=== PATIENT | female | born 1935 | race Caucasian/White ===

== ENCOUNTER → 2017-01-11 | Outpatient (CLI) | payer BC ==
[~2017-01-11] MED LIST: AMLO2.5T PO; ASPI81TA28 PO; CHOL4POW11 PO; CLR10 PEG; ENTERAL NUTRITION FORMULA PEG; HYOS1TAB PO; IMD/2 PEG; LACT12CR TOP; LACT12LO TOP; LANS30CA12 PEG; LANS30TA3 PO; LCTX PEG; LEVO100T7 PO; LEVO88TA3 PEG; LEVO88TA3 PO; METO25TA3 PO; MIRT15TA2 PO; MIRT30TA3 PO; NTRGSL/4 UT; ONDA8TAB6 SL; OXYC1TAB3 PO; PRD/1 PO; PRED-301 PEG; PRED-301 PO; PREMARIN CREAM; ROSU5TAB9 PO; TRAM-10 PEG; ULT50 PO; VNCAQN NAE; [UNRECOGNIZED DRUG - CODE]
--- NOTE | 2017-01-11 09:33 | DIAGNOSTIC IMAGING REPORT ---
ABDOMEN AND PELVIS CT WITHOUT CONTRAST CT DOSE: 331.96 mGycm HISTORY: Aneurysm repair NO CONTRAST REQUESTED PER ORDER TECHNIQUE: Multiaxial CT images of the abdomen and pelvis were performed without contrast. COMPARISON STUDY: 07/07/2016. FINDINGS: Minimal dependent bibasilar atelectatic change. Prior aneurysm repair considered stable. Kidneys demonstrate moderate atrophy and cortical thinning. Gallstones are present within the gallbladder fundus. Liver spleen are uniform. There is a fixed lateral hernia. There is moderate increase in fecal load throughout the colon. There is no evidence for fecal impaction. Patient is status post left hip pinning. IMPRESSION: 1. Stable findings of a prior aneurysm repair. 2. Cortical scarring of both kidneys with no evidence for hydronephrosis. This is unchanged. 3. Fixed lateral hernia. 4. Increased fecal load consistent throughout the colon suggesting a component of fecal stasis Electronically signed by: Walter Mortensen M.D. 01/11/2017 9:32 AM Dictated Date/Time: 01/11/2017 9:27 AM
== END | disposition home or self-care (01) ==
LOC: C.CTS 09:04
PROVIDERS: ATTEND Physician Assistant
DX: I71.3 Abdominal aortic aneurysm, ruptured (principal)

== ENCOUNTER 2017-08-09 01:10 | Inpatient (IN) | payer BC, OTHER ==
[2017-08-09] VITALS (8 sets, daily range): BP systolic 108–154; BP diastolic 66–95; PULSE 69–82; TEMP 36.5–36.8; O2SAT 95–100; Ht 162.6 cm; Wt 56.5 kg
[~2017-08-09] VITALS: Ht 162.6 cm; Wt 56.5 kg
[~2017-08-09 01:10] MED LIST changes: -ASPI81TA28 PO; -ENTERAL NUTRITION FORMULA PEG; -LANS30CA12 PEG; -LANS30TA3 PO; -LEVO88TA3 PEG; -LEVO88TA3 PO; -MIRT30TA3 PO; -PRD/1 PO; -PRED-301 PO; -ROSU5TAB9 PO; -ULT50 PO
--- NOTE | 2017-08-09 01:59 | EMERGENCY ROOM VISIT NOTE ---
History Report prepared by [place]: Jade Barragan Under the Supervision of: Moe TovarO. 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 The patient is currently wearing a Holter monitor. She has been having episodes of SOB and chest heaviness when she lies down. She is currently being evaluated for a pacemaker. She had another episode of SOB today when she was lying down. It lasted for about 5 minutes. She feels dizzy and lightheaded during these episodes. She sat up and took some deep breaths which resolved her symptoms. She received a call from her doctor who was informed by the Holter monitor that the patient had an episode of irregular heartbeat. The nurse was told that it was an advanced form of heart block. She did not have any chest pain. Source of History: patient, nursing staff Onset: HUMAN SERVICES CARE SPECIALIST Position: other (global) Quality: other (irregular heartbeat) Timing: other (episodic) Associated Symptoms: + SOB, No chest pain Note: Pt reports dizziness, lightheadedness, chest heaviness. Review of Systems See HPI for pertinent positives and negatives. A total of ten systems were reviewed and were otherwise negative. Past Medical & Surgical Medical Problems: (1) Aortic valve regurgitation (2) Chronic use of steroids (3) Chronic use of steroids (4) CKD (chronic kidney disease), stage III (5) DJD (degenerative joint disease) (6) Dyslipidemia (7) Fever (8) GERD (gastroesophageal reflux disease) (9) H/O atherosclerosis (10) H/O: GI bleed (11) History of ischemic colitis (12) History of methicillin resistant staphylococcus aureus (MRSA) (13) HTN (hypertension) (14) Hypothyroidism (15) IBS (irritable bowel syndrome) (16) Idiopathic peripheral neuropathy (17) Mitral regurgitation (18) Osteoporosis (19) Personal history of DVT (deep vein thrombosis) (20) Tachycardia Surgical Problems: (1) History of hysterectomy (2) S/P coronary artery stent placement (3) S/p SCC removal left leg (4) S/p SMA stent Family History Heart disease Social History Smoking Status: Never Smoker Alcohol Use: occasionally Drug Use: none Marital Status: Housing Status: lives with family Occupation Status: retired Current/Historical Medications Scheduled Amlodipine (Norvasc), 2.5 MG PO DAILY Aspirin (Aspirin Ec), 81 MG PO DAILY Lansoprazole (Prevacid Solutab), 30 MG PO DAILY Levothyroxine Sodium (Levothyroxine Sodium), 88 MCG PO DAILY Metoprolol Succ (Toprol Xl) (Toprol-Xl), 12.5 MG PO BID Mirtazapine (Remeron), 30 MG PO HS Prednisone (Prednisone), 1 MG PO DAILY Prednisone (Prednisone), 5 MG PO DAILY Rosuvastatin Calcium (Rosuvastatin Calcium), 5 MG PO DAILY Scheduled PRN Nitroglycerin (Nitrostat), 0.4 MG UT UD PRN for Chest Pain Tramadol HCl (Tramadol HCl), 50 MG PO TID PRN for Pain Allergies Coded Allergies: Ciprofloxacin (Verified Allergy, Intermediate, RASH, 08/09/17) Metronidazole (Verified Allergy, Intermediate, RASH, 08/09/17) mild rash / pruritis Cefuroxime (Verified Allergy, Unknown, RASH, 08/09/17) Nitrofurantoin (Verified Allergy, Unknown, UKN, 08/09/17) Bisphosphonates (Verified Adverse Reaction, Intermediate, GI UPSET, ) Liothyronine (Verified Adverse Reaction, Mild, RAPID HEART RATE, 08/09/17) Physical Exam Vital Signs Date Time Temp Pulse Resp B/P (MAP) Pulse Ox O2 Delivery O2 Flow Rate FiO2 08/09/17 03:30 71 20 146/92 97 Room Air 08/09/17 03:26 72 08/09/17 02:41 74 18 137/85 96 Room Air 08/09/17 01:34 94 Room Air 08/09/17 01:34 94 Room Air 08/09/17 01:28 79 08/09/17 01:26 93 Room Air 08/09/17 01:13 36.5 90 24 165/102 93 Room Air Physical Exam GENERAL: Awake, alert, well-appearing, in no distress HENT: Normocephalic, atraumatic. Oropharynx unremarkable. EYES: Normal conjunctiva. Sclera non-icteric. NECK: Supple. No nuchal rigidity. FROM. No JVD. RESPIRATORY: Clear to auscultation. CARDIAC: Regular rate, normal rhythm. Extremities warm and well perfused. Pulses equal. ABDOMEN: Soft, non-distended. No tenderness to palpation. No rebound or guarding. No masses. RECTAL: Deferred. MUSCULOSKELETAL: Chest examination reveals no tenderness. The back is symmetrical on inspection without obvious abnormality. There is no CVA tenderness to palpation. No joint edema. LOWER EXTREMITIES: Calves are equal size bilaterally and non-tender. No edema. No discoloration. NEURO: Normal sensorium. No sensory or motor deficits noted. SKIN: No rash or jaundice noted. Medical Decision & Procedures ER Provider Diagnostic Interpretation: X-ray: Per my interpretation, radiologist review. Chest X-ray: Negative infiltrate. No pneumothorax. Laboratory Results 08/09/17 01:55 Red Blood Count 4.90, Mean Corpuscular Volume 95.1, Mean Corpuscular Hemoglobin 30.8, Mean Corpuscular Hemoglobin Concent 32.4, Mean Platelet Volume 10.7, Neutrophils (%) (Auto) 74.9, Lymphocytes (%) (Auto) 13.3, Monocytes (%) (Auto) 8.7, Eosinophils (%) (Auto) 2.3, Basophils (%) (Auto) 0.5, Neutrophils # (Auto) 4.83, Lymphocytes # (Auto) 0.86, Monocytes # (Auto) 0.56, Eosinophils # (Auto) 0.15, Basophils # (Auto) 0.03 08/09/17 01:55 08/09/17 02:45 Test 08/09/17 01:55 08/09/17 02:45 White Blood Count 6.45 K/uL (4.8-10.8) Red Blood Count 4.90 M/uL (4.2-5.4) Hemoglobin 15.1 g/dL (12.0-16.0) Hematocrit 46.6 % (37-47) Mean Corpuscular Volume 95.1 fL (80-100) Mean Corpuscular Hemoglobin 30.8 pg (25-34) Mean Corpuscular Hemoglobin Concent 32.4 g/dl (32-36) Platelet Count 164 K/uL (130-400) Mean Platelet Volume 10.7 fL (7.4-10.4) Neutrophils (%) (Auto) 74.9 % Lymphocytes (%) (Auto) 13.3 % Monocytes (%) (Auto) 8.7 % Eosinophils (%) (Auto) 2.3 % Basophils (%) (Auto) 0.5 % Neutrophils # (Auto) 4.83 K/uL (1.4-6.5) Lymphocytes # (Auto) 0.86 K/uL (1.2-3.4) Monocytes # (Auto) 0.56 K/uL (0.11-0.59) Eosinophils # (Auto) 0.15 K/uL (0-0.5) Basophils # (Auto) 0.03 K/uL (0-0.2) RDW Standard Deviation 49.1 fL (36.4-46.3) RDW Coefficient of Variation 14.2 % (11.5-14.5) Immature Granulocyte % (Auto) 0.3 % Immature Granulocyte # (Auto) 0.02 K/uL (0.00-0.02) Anion Gap 2.0 mmol/L (3-11) Est Creatinine Clear Calc Drug Dose 19.3 ml/min Estimated GFR () 26.5 Estimated GFR (Non- 22.9 BUN/Creatinine Ratio 17.1 (10-20) Calcium Level 8.7 mg/dl (8.5-10.1) Total Bilirubin 0.4 mg/dl (0.2-1) Alanine Aminotransferase (ALT/SGPT) 36 U/L (12-78) Alkaline Phosphatase 120 U/L (45-117) Total Protein 7.6 gm/dl (6.4-8.2) Albumin 3.5 gm/dl (3.4-5.0) Magnesium Level 2.5 mg/dl (1.8-2.4) Direct Bilirubin 0.1 mg/dl (0-0.2) Aspartate Amino Transf (AST/SGOT) 16 U/L (15-37) Troponin I < 0.015 ng/ml (0-0.045) Laboratory results reviewed by me ECG Indication: palpitations Rate (beats per minute): 70 Rhythm: sinus rhythm Findings: LBBB, no acute ischemic change, left axis deviation Comparison ECG Date: 01-Jan-2016 Change: LBBB is present in old. ED Course 0125: The patient was evaluated in room A10. A complete history and physical exam was performed. 0326: I discussed the patient's case with Dr. Mosley [facility]. The patient will be evaluated for further treatment and disposition. 0330: Upon reexamination, the patient was stable. I discussed the test results and treatment plan with her. The patient will be evaluated for further management. Medical Decision Differential diagnoses include but are not limited to; cardiac dysrhythmia, ventricular tachycardia, complete heart block, metabolic derangement. Patient's rhythm strips from the Holter monitor showed a complete heart block. Patient remained stable condition throughout emergency department evaluation. Case was discussed with the [facility] for admission for further evaluation from the patient's acute care physical therapist Medication Reconcilliation Current Medication List: was personally reviewed by me Blood Pressure Screening Patient's blood pressure: Elevated blood pressure Blood pressure disposition: Elevated BP felt to be situational Consults Time Called: [phone] Consulting Physician: Dr. Mosley [facility] Returned Call: [phone] Discussed the patient's case. The patient will be evaluated for further treatment and disposition. Impression Primary Impression: Cardiac dysrhythmia Scribe Attestation The scribe's documentation has been prepared under my direction and personally reviewed by me in its entirety. I confirm that the note above accurately reflects all work, treatment, procedures, and medical decision making performed by me. Departure Information Dispostion Being Evaluated By Hospitalist Referrals Vandana Krishna M.D. (PCP) Patient Instructions My [facility]
[2017-08-09 02:05] LABS: BASO % 0.5 %; BASO ABS # 0.03 K/uL (0-0.2); COMPLETE YES; EOS % 2.3 %; HEMATOCRIT 46.6 % (37-47); IG% 0.3 %; LYMPH % 13.3 %; LYMPH ABS # 0.86 K/uL (1.2-3.4); MEAN CELL VOLUME 95.1 fL (80-100); MEAN CORPUSCULAR HEMOGLOBIN 30.8 pg (25-34); MEAN CORPUSCULAR HGB CONC 32.4 g/dl (32-36); MEAN PLATELET VOLUME 10.7 fL (7.4-10.4); MONO % 8.7 %; NEUT % 74.9 %; PLATELET COUNT 164 K/uL (130-400); WHITE BLOOD COUNT 6.45 K/uL (4.8-10.8)
[2017-08-09 02:28] LABS: ALKALINE PHOSPHATASE 120 U/L (45-117); ALT/SGPT 36 U/L (12-78); BLOOD UREA NITROGEN 34 mg/dl (7-18); BUN/CREATININE RATIO 17.1 (10-20); CALCIUM 8.7 mg/dl (8.5-10.1); CARBON DIOXIDE 30 mmol/L (21-32); CHLORIDE 107 mmol/L (98-107); CREATININE 2.01 mg/dl (0.60-1.20); GLUCOSE 72 mg/dl (70-99); SODIUM 139 mmol/L (136-145)
[2017-08-09] MEDS ORDERED: LANS30TA3 PO (02:44)
[2017-08-09] MEDS ORDERED: ASPI81TA28 PO (02:44)
[2017-08-09] MEDS ORDERED: PRED-301 PO (02:44)
[2017-08-09] MEDS ORDERED: MIRT30TA3 PO (02:44)
[2017-08-09] MEDS ORDERED: ULT50 PO (02:44)
[2017-08-09] MEDS ORDERED: PRD/1 PO (02:44)
[2017-08-09] MEDS ORDERED: ROSU5TAB9 PO (02:44)
[2017-08-09] MEDS ORDERED: LEVO88TA3 PO (02:44)
[2017-08-09 03:07] LABS: POTASSIUM 4.2 mmol/L (3.5-5.1)
[2017-08-09 03:17] LABS: AST/SGOT 16 U/L (15-37); MAGNESIUM 2.5 mg/dl (1.8-2.4)
[2017-08-09] MEDS ORDERED: TRAMADOL HCL 50 MG TAB PO PRN ×2 (04:30→13:30)
[2017-08-09] MEDS ORDERED: ACETAMINOPHEN 325 MG TAB PO PRN ×2 (04:30→13:30)
[2017-08-09] MEDS ORDERED: NITROGLYCERIN 0.4 MG SL PER TAB CHARGE SL PRN (04:30)
[2017-08-09] MEDS ORDERED: D5W AND NSS 1,000 ML IV SCH (04:30)
[2017-08-09] MEDS ORDERED: PROCHLORPERAZINE INJ 5 MG in SYRINGE 4 ML IV PRN (04:30)
[2017-08-09] MEDS ORDERED: LORAZEPAM 0.5 MG TAB PO ONE (05:00)
--- NOTE | 2017-08-09 06:35 | HISTORY & PHYSICAL EXAMINATION ---
DATE OF ADMISSION: 08/09/2017 PRIMARY CARE PHYSICIAN: Vandana Krishna MD. CHIEF COMPLAINT: "Doctor told us to come, Holter went off." HISTORY OF PRESENT ILLNESS: History obtained from patient, , and records. Medical history significant for CAD status post stenting, AAA rupture status post surgery, aortic stenosis, hypertension, chronic left bundle branch block fibromyalgia as per records, chronic renal insufficiency (baseline creatinine at 2), History dermatomyositis on chronic steroid Rx, history of MRSA, hypothyroidism, history of PE/DVT status post IVC filter placement Recent confinement last December 2015 for her bilateral new DVTs. Patient deemed to be a poor candidate for anticoagulation due to history of retroperitoneal bleed. In the last few months, the patient would have lightheadedness symptoms, wooziness some shortness of breath, no chest pain, comes and goes few times a week. Seen at PCP's office, consideration for arrhythmia. Outpatient [facility] later replaced w/ Holter cardiac event monitoring due to patient having issues with the former automation technologist. Tis morning, the patient laid down on a couch, she noted recurrence off sensation of wooziness, lightheadedness, shortness of breath lasting for minutes. She pressed event monitor button. She later received a call from PCP's office notifying her of an advanced heart block that have been picked up by her monitor. Patient current to comfortable. MEDICAL HISTORY: As above. A 2D echo from June 2017 showed concentric LVH, EF 55%, moderate calcific aortic valve stenosis, trace aortic valve regurgitation, mildly enlarged proximal ascending thoracic aorta. SURGERIES: She has had hysterectomy, hip surgery, squamous cell carcinoma of left leg, vascular procedures, AAA repair. HOME MEDICATIONS: Include levothyroxine, simvastatin, lansoprazole, amlodipine, metoprolol, prednisone, loperamide, cholestyramine, Zofran, lactobacillus, Beconase, loratadine, tramadol, oxycodone, furosemide, aspirin. ALLERGIES: BISPHOSPHONATES, CEFTIN, NITROFURANTOIN. FAMILY HISTORY: There is a family history of hypertension, skin cancer. PERSONAL SOCIAL HISTORY: Nonsmoker, no chronic intake of alcohol. Retired clerk secretary. REVIEW OF SYSTEMS: As per HPI, all 10 systems reviewed. All other ROS negative. PHYSICAL EXAMINATION: VITAL SIGNS: Blood pressure was noted to be 137/85, pulse rate of 64, RR 18, temperature 36.5, sats 96 on room air. GENERAL: Slightly anxious, distressed. SKIN: Normal color, warm. HEENT: Marvell palpebral conjunctivae. No ptosis. Dry buccal mucosa. NECK: Supple, nontender. CHEST: Clear to auscultation. No tenderness. HEART: Regular rate and rhythm, systolic murmur. ABDOMEN: Some distension, nontender. EXTREMITIES: No LE edema, no tenderness. No gross deformities. NEUROLOGIC: Coherent. No gross focality. LABORATORY DATA: Hemoglobin 15.1, hematocrit 46.6, white cell count 10, platelets 164, Sodium 135, potassium 4.2, chloride 107, CO2 30, BUN 34, creatinine 2, glucose was noted to be 72. Chest x-ray as per my interpretation atelectasis, prominent aortic knob. EKG as per my interpretation, rate 70, normal sinus rhythm, left axis deviation, chronic left bundle branch block, PRWP. ASSESSMENT 1. Symptomatic bradycardia secondary to intermittent complete heart block 2. Hypertension, stable. 3. AAA rupture sp repair 4. Pulmonary thromboembolism sp IVC filter placement. Not a candidate candidate for anti-condition secondary to past history of retroperitoneal bleed. 5. Coronary artery disease status post stenting. 6. Chronic renal failure, creatinine at baseline. 7. hx of aortic stenosis as per records 8. 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 Patient will likely require PPM Appropriate to hold home beta danyel for now until patient seen by Cardiology. DVT prophylaxis, Heparin subQ. Full code. MTDD
[2017-08-09 06:55] LABS: PARTIAL THROMBOPLASTIN RATIO 0.9
--- NOTE | 2017-08-09 07:18 | DIAGNOSTIC IMAGING REPORT ---
SINGLE VIEW CHEST CLINICAL HISTORY: Atypical chest pain. FINDINGS: An AP, portable, upright chest radiograph is compared to study dated 01/01/2016. The examination is degraded by portable technique and patient rotation. The cardiomediastinal silhouette is normal for projection. There is a large hiatal hernia. Left basilar atelectasis is noted. There is no airspace consolidation typical for pneumonia or large pleural effusion. No pneumothorax is seen. The skeletal structures are osteopenic. Degenerative change and scoliosis are noted in the thoracic spine. IMPRESSION: 1. No acute cardiopulmonary abnormality. 2. Large hiatal hernia. Electronically signed by: Gustavo Hale M.D. 08/09/2017 7:16 AM Dictated Date/Time: 08/09/2017 7:16 AM
[2017-08-09] MEDS: ASPIRIN 81 MG ECTAB PO SCH (08:23)
[2017-08-09] MEDS: ROSUVASTATIN CALCIUM 5 MG TAB PO SCH (08:23)
[2017-08-09] MEDS: LANSOPRAZOLE SOLUTAB 30 MG PO SCH (08:24)
[2017-08-09] MEDS: AMLODIPINE BESYLATE 5 MG TAB PO SCH (08:24)
--- NOTE | 2017-08-09 10:23 | Progress Note ---
Progress Note Date of Service Aug 09, 2017. Progress Note full ep consult dictated. Pt with intermittent complete heart block for dual chamber pacemaker today.
[2017-08-09] MEDS ORDERED: BACITRACIN 50000 UNIT VIAL ONE (11:50)
[2017-08-09] MEDS ORDERED: LIDOCAINE HCL 1% 20 ML VIAL ONE (11:50)
[2017-08-09] MEDS ORDERED: BUPIVACAINE 0.5 % 5 MG/1 ML MPF 30ML VIAL ONE (11:50)
[2017-08-09] MEDS ORDERED: CEFAZOLIN SOD 1 GM VIAL ONE (12:04)
--- NOTE | 2017-08-09 12:38 | CARDIOLOGY CONSULTATION ---
DATE OF CONSULTATION: 08/09/2017 REFERRING PHYSICIAN: Garrison Marie DO REASON FOR CONSULTATION: Intermittent complete heart block. HISTORY OF PRESENT ILLNESS: This is an 82-year-old female, who had been in a normal state of health up until a little over a month ago where she was starting to have a lot of dyspnea on exertion, shortness of breath, generalized fatigue as well as some lightheadedness and dizziness intermittently with near syncope, but no overt syncope. She recently had seen Dr. Pinto in our office on July 14 and a CardioNet was ordered. She had just gotten the CardioNet yesterday. She was awake and was watching the football game when she developed symptoms and CardioNet contacted the physician industrial relations analyst and it correlated with complete heart block and the patient was contacted and told to come to the Emergency Room. Overnight, she has had sinus rhythm with her baseline left bundle-branch block. PAST MEDICAL HISTORY: Coronary artery disease, history of 2 bare metal stents to the RCA in July 2014, left bundle-branch block, newly found in July 2017, chronic kidney disease stage III to IV, moderate aortic stenosis, emergency repair of a ruptured abdominal aortic aneurysm in October 2015 with a prolonged hospital stay, DVT and pulmonary embolism with status post IVC filter as she was not an anticoagulation candidate due to retroperitoneal bleed, hyperlipidemia, hypertension, hypothyroidism. PAST SURGICAL HISTORY: Cardiac catheterization, emergency repair of a ruptured abdominal aortic aneurysm, hysterectomy, hip surgery, squamous cell carcinoma of the left leg. ALLERGIES: BISPHOSPHONATES, CEFTIN, AND NITROFURANTOIN. HOME MEDICATIONS: Include oxycodone, aspirin, tramadol, prednisone, Synthroid, mirtazapine, Crestor, Prevacid, Norvasc, Lopressor 12.5 twice a day, Premarin, Zofran, lactobacillus. REVIEW OF SYSTEMS: All other 10-point review of systems is reviewed and essentially negative at this time. FAMILY HISTORY: Significant for hypertension and skin cancer. SOCIAL HISTORY: She is a nonsmoker. No alcohol. Retired assistant corporate secretary. PHYSICAL EXAMINATION: VITAL SIGNS: Temperature 36.5, heart rate 77, blood pressure 144/76, respirations 22, oxygen saturation 98%. GENERAL: She is awake, alert and oriented x3, in no acute distress, sitting up in the bed comfortably. HEENT: Normocephalic, atraumatic. Extraocular motion intact. Sclerae is nonicteric. Mucous membranes moist. NECK: Thin and supple. No JVD. CARDIOVASCULAR: Normal S1, S2, regular rate and rhythm. Positive systolic murmur 3/6. No palpable heave or thrill. PULMONARY: Clear to auscultation bilaterally. No wheezes, rales or rhonchi. ABDOMEN: Soft, benign. EXTREMITIES: No clubbing or cyanosis of fingers. No edema of the bilateral lower extremities. Peripheral pulses intact. NEUROLOGIC: Grossly intact. SKIN: Grossly intact. PERTINENT TESTING: A 12-lead ECG on admission is sinus rhythm with left bundle-branch block. HEMATOLOGY: WBC 6.45, hemoglobin 15, hematocrit 46.6, platelets 164. CHEMISTRY: Sodium 139, chloride 107, carbon dioxide 30, BUN 34, creatinine 2, glucose 72, calcium 8.7, total bilirubin 0.4, alkaline phosphatase 120, ALT 36. Total protein 7.6, albumin 3.5, potassium 4.2, magnesium 2.5, direct bilirubin 0.1, AST 16. TSH is low at 0.6 with a free T4 of 1 and total T3 of 6.65. Chest x-ray is negative. Echocardiogram done in our office in June 2017, preserved ejection fraction of 55%-59%, moderately calcified aortic valve with moderate aortic valve stenosis, trace AI, normal aortic root and proximal ascending thoracic aorta is mildly enlarged, but stable. CardioNet showed intermittent complete heart block at the time when patient was symptomatic at 11:30 at night. IMPRESSION: 1. Intermittent complete heart block. 2. Moderate aortic stenosis. 3. Coronary artery disease, history of bare metal stent to the right coronary artery in 2013 x2. 4. Hypertension. 5. Hyperlipidemia. 6. Left bundle-branch block. 7. History of abdominal aortic aneurysm rupture with status post repair in October 2015. 8. Deep venous thrombosis and pulmonary embolism post-procedure, status post inferior vena cava filter, not an anticoagulation candidate due to bleeding. 9. Chronic kidney disease stage III to IV. PLAN: Recommend permanent pacemaker dual chamber. Discussed the procedure with the patient as well as the potential risks which include but not limited to sudden cardiac , cardiac arrhythmias, cerebrovascular accident, myocardial infarction, injury to the blood vessels, chamber of the heart and lungs, bleeding and infection. The patient understood these risks and agreed to the procedure as planned. Informed consent was obtained. We will try to do the procedure today in her left arm, n.p.o. for now, antibiotics preop.
--- NOTE | 2017-08-09 12:45 | Progress Note ---
Medicine Progress Note Date & Time of Visit: Aug 09, 2017 at 12:40. Subjective Patient seen earlier this AM, denies any additional symptoms involving SOB, or lightheadedness. Denies any CP or palpitations. No new complaints noted. No overnight events noted. NPO for possible pacemaker placement this afternoon. Objective Last 8 Hrs Date Time Temp Pulse Resp B/P (MAP) Pulse Ox O2 Delivery O2 Flow Rate FiO2 08/09/17 11:49 36.8 69 18 138/73 (94) 96 08/09/17 08:00 Room Air 08/09/17 07:45 36.5 77 22 144/76 (98) 98 08/09/17 05:00 36.7 71 20 154/88 100 Room Air Physical Exam: GENERAL: Patient is in no acute distress. HEENT: No acute trauma, normocephalic, mucous membranes moist, conjunctivae clear, no scleral icterus. NECK: No stridor, trachea is midline. LUNGS: Clear to auscultation bilaterally, no wheeze, no rhonchi, breath sounds equal. HEART: Without murmurs gallops or rubs, regular rate and rhythm. ABDOMEN: Soft, nontender, bowel sounds positive, no hepatosplenomegaly EXTREMITIES: No cyanosis or edema, full range of motion of all the joints without pain or difficulty, no signs for acute trauma. NEUROLOGIC: Oriented x 3, no acute motor or sensory deficits, no focal weakness. SKIN: No rash, no jaundice, no diaphoresis. Laboratory Results: Last 24 Hours Test 08/09/17 01:55 08/09/17 02:45 08/09/17 05:40 White Blood Count 6.45 K/uL Red Blood Count 4.90 M/uL Hemoglobin 15.1 g/dL Hematocrit 46.6 % Mean Corpuscular Volume 95.1 fL Mean Corpuscular Hemoglobin 30.8 pg Mean Corpuscular Hemoglobin Concent 32.4 g/dl Platelet Count 164 K/uL Mean Platelet Volume 10.7 fL Neutrophils (%) (Auto) 74.9 % Lymphocytes (%) (Auto) 13.3 % Monocytes (%) (Auto) 8.7 % Eosinophils (%) (Auto) 2.3 % Basophils (%) (Auto) 0.5 % Neutrophils # (Auto) 4.83 K/uL Lymphocytes # (Auto) 0.86 K/uL Monocytes # (Auto) 0.56 K/uL Eosinophils # (Auto) 0.15 K/uL Basophils # (Auto) 0.03 K/uL RDW Standard Deviation 49.1 fL RDW Coefficient of Variation 14.2 % Immature Granulocyte % (Auto) 0.3 % Immature Granulocyte # (Auto) 0.02 K/uL Sodium Level 139 mmol/L Potassium Level mmol/L 4.2 mmol/L Chloride Level 107 mmol/L Carbon Dioxide Level 30 mmol/L Anion Gap 2.0 mmol/L Blood Urea Nitrogen 34 mg/dl Creatinine 2.01 mg/dl Est Creatinine Clear Calc Drug Dose 19.3 ml/min Estimated GFR () 26.5 Estimated GFR (Non- 22.9 BUN/Creatinine Ratio 17.1 Random Glucose 72 mg/dl Calcium Level 8.7 mg/dl Magnesium Level mg/dl 2.5 mg/dl Total Bilirubin 0.4 mg/dl Direct Bilirubin mg/dl 0.1 mg/dl Aspartate Amino Transf (AST/SGOT) U/L 16 U/L Alanine Aminotransferase (ALT/SGPT) 36 U/L Alkaline Phosphatase 120 U/L Total Protein 7.6 gm/dl Albumin 3.5 gm/dl Troponin I < 0.015 ng/ml Thyroid Stimulating Hormone (TSH) 0.060 uIu/ml Prothrombin Time 10.0 SECONDS Prothromb Time International Ratio 1.0 Activated Partial Thromboplast Time 23.6 SECONDS Partial Thromboplastin Ratio 0.9 Free Thyroxine 1.00 ng/dl Total Triiodothyronine 0.65 ng/ml Assessment & Plan Please see H&P from this AM for more details. SYMPTOMATIC INTERMITTENT COMPLETE HEART BLOCK -bradycardia secondary to intermittent complete heart block -held av blocking meds; BB stopped -monitor in tele -pacer pads on patient -EP Cardiology consulted, appreciate recs, planning to take patient for PM placement today HTN: -currently stable -monitor -continue amlodipine Hx of MULTIPLE VTE EVENTS: -multiple DVTs, and PE, s/p IVC filter placement -not a candidate for anticoagulation secondary to history of retroperitoneal bleed CAD: -with prior hx of stent -continued on ASA, statin -BB held due to above PRIOR Hx OF AAA: -per history patient had AAA rupture s/p repair -no related symptoms presently CKD STAGE: -creatinine at baseline -avoid nephrotoxins Hx of AORTIC STENOSIS: per records -TTE: from June 2017 showed EF 55%, concentric LVH, moderate calcific aortic valve stenosis, trace aortic valve regurgitation, mildly enlarged proximal ascending thoracic aorta. 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 Current Inpatient Medications: Current Inpatient Medications Medications (Trade) Dose Ordered Sig/Edmond Route Start Time Stop Time Status Last Admin Dose Admin Heparin Sodium (Porcine) (Heparin Sq 5000 Unit/0.5ml) 5,000 unit Q8 SQ 08/09/17 14:00 09/08/17 13:59 Acetaminophen (Tylenol Tab) 650 mg Q4H PRN PO 08/09/17 04:30 09/08/17 04:29 Nitroglycerin (Nitrostat Tab) 0.4 mg UD PRN SL 08/09/17 04:30 09/08/17 04:29 Dextrose/Sodium Chloride 1,000 ml @ 40 mls/hr Q24H IV 08/09/17 04:30 09/08/17 04:29 08/09/17 05:12 40 MLS/HR Prochlorperazine Edisylate 5 mg/ Syringe 5 ml @ 5 mls/min Q6H PRN IV 08/09/17 04:30 09/08/17 04:29 Tramadol HCl (Ultram Tab) 25 mg Q6H PRN PO 08/09/17 04:30 09/08/17 04:29 Hydromorphone HCl (Dilaudid Inj) 0.5 mg Q4H PRN IV 08/09/17 04:30 08/23/17 04:29 Amlodipine Besylate (Norvasc Tab) 2.5 mg DAILY PO 08/09/17 09:00 09/08/17 08:59 08/09/17 08:24 2.5 MG Aspirin (Ecotrin Tab) 81 mg DAILY PO 08/09/17 09:00 09/08/17 08:59 08/09/17 08:23 81 MG Lansoprazole (Prevacid Solutab) 30 mg DAILY PO 08/09/17 09:00 09/08/17 08:59 08/09/17 08:24 30 MG Mirtazapine (Remeron Tab) 30 mg HS PO 08/09/17 21:00 09/08/17 20:59 Prednisone (PredniSONE TAB) 6 mg DAILY PO 08/09/17 09:00 09/08/17 08:59 08/09/17 08:25 6 MG Rosuvastatin Calcium (Crestor Tab) 5 mg DAILY PO 08/09/17 09:00 09/08/17 08:59 08/09/17 08:23 5 MG
[2017-08-09] MEDS ORDERED: FENTANYL CITRATE INJ 50 MCG/1 ML 2 ML VIAL ONE (12:54)
[2017-08-09] MEDS ORDERED: MIDAZOLAM HCL 5 MG/ML 1 ML VIAL ONE (12:54)
[2017-08-09] MEDS ORDERED: NURSING VERBAL MED ORDER ONE (13:00)
[2017-08-09] MEDS ORDERED: NITROGLYCERIN 0.4 MG SL PER TAB CHARGE UT PRN (13:30)
[2017-08-09] MEDS: HEPARIN SOD 5000 UNIT/0.5 ML CARP SQ SCH ×2 (14:41→19:56)
[2017-08-09] MEDS: HYDROmorphone INJ 0.5 MG/0.5 ML SYR IV PRN ×2 (17:45→21:53)
[2017-08-09] MEDS: ACETAMINOPHEN/CODEINE 300/30MG TAB PO PRN (19:54)
[2017-08-09] MEDS: METOPROLOL SUCC 25MG EXT REL TAB PO SCH (19:54)
[2017-08-09] MEDS ORDERED: MIRTAZAPINE TAB 15 MG TAB PO SCH (21:00)
[2017-08-10] MEDS ORDERED: NURSING DECISION MEDICATION ORDER SCH (00:30)
[2017-08-10 00:33] VITALS: BP 143/84; PULSE 82; TEMP 36.9; O2SAT 96
[2017-08-10] MEDS: ACETAMINOPHEN/CODEINE 300/30MG TAB PO PRN (00:38)
[2017-08-10 03:07] VITALS: BP 122/82; PULSE 75; TEMP 36.7; O2SAT 96
[2017-08-10] MEDS: HEPARIN SOD 5000 UNIT/0.5 ML CARP SQ SCH (05:56)
[2017-08-10] MEDS ORDERED: LEVOTHYROXINE 88 MCG TAB PO SCH (06:00)
[2017-08-10 06:07] LABS: BASO % 0.2 %; BASO ABS # 0.01 K/uL (0-0.2); COMPLETE YES; EOS % 3.7 %; HEMATOCRIT 46.1 % (37-47); IG% 0.3 %; LYMPH % 5.9 %; LYMPH ABS # 0.36 K/uL (1.2-3.4); MEAN CORPUSCULAR HGB CONC 31.2 g/dl (32-36); MEAN PLATELET VOLUME 10.8 fL (7.4-10.4); MONO % 6.2 %; NEUT % 83.7 %; PLATELET COUNT 121 K/uL (130-400); WHITE BLOOD COUNT 6.14 K/uL (4.8-10.8)
[2017-08-10 06:24] LABS: BUN/CREATININE RATIO 17.6 (10-20); CREATININE 1.72 mg/dl (0.60-1.20); POTASSIUM 4.2 mmol/L (3.5-5.1)
[2017-08-10 06:25] LABS: CALCIUM 8.3 mg/dl (8.5-10.1)
--- NOTE | 2017-08-10 07:19 | DIAGNOSTIC IMAGING REPORT ---
CHEST 2 VIEWS ROUTINE CLINICAL HISTORY: Pacemaker placement COMPARISON STUDY: 08/09/2017 FINDINGS: There is been interval placement of a dual-chamber left subclavian central venous pacemaker. There is no pneumothorax. The electrode position is unremarkable. The heart is borderline enlarged with aortic tortuosity/ectasia. There is a retrocardiac opacity consistent with a hiatal hernia. There is no focal pulmonary consolidation. There is minimal blunting of the left lateral costophrenic angle.[ IMPRESSION: No evidence of pneumothorax status post left subclavian dual-chamber central venous pacemaker placement Electronically signed by: Toby Aguilar M.D. 08/10/2017 7:18 AM Dictated Date/Time: 08/10/2017 7:17 AM
[2017-08-10 08:06] VITALS: BP 120/66; PULSE 68; TEMP 36.8; O2SAT 96
[2017-08-10] MEDS: METOPROLOL SUCC 25MG EXT REL TAB PO SCH (08:22)
[2017-08-10] MEDS: ROSUVASTATIN CALCIUM 5 MG TAB PO SCH (08:23)
[2017-08-10] MEDS: LANSOPRAZOLE SOLUTAB 30 MG PO SCH (08:23)
[2017-08-10] MEDS: AMLODIPINE BESYLATE 5 MG TAB PO SCH (08:24)
[2017-08-10] MEDS: ASPIRIN 81 MG ECTAB PO SCH (08:24)
--- NOTE | 2017-08-10 08:47 | Cardiology Follow-Up ---
Subjective Subjective Date of Service: Aug 10, 2017. Pt evaluation today including: conversation w/ patient, physical exam, lab review Pain: minimal discomfort Problem List Medical Problems: (1) Abdominal aortic aneurysm, ruptured Status: Acute (2) Cardiac dysrhythmia Status: Acute (3) Dehydration Status: Acute (4) Feeding tube dysfunction Status: Acute Review of Systems Constitutional: No fatigue Respiratory: No shortness of breath, No dyspnea on exertion Cardiac: No chest pain, No edema, No palpitations Abdomen: No nausea, No diarrhea Endo: No fatigue Objective Vital Signs Last Vital Signs Documentation Date Time Temp Pulse Resp B/P (MAP) Pulse Ox O2 Delivery O2 Flow Rate FiO2 08/10/17 08:06 36.8 68 16 120/66 (84) 96 08/10/17 04:02 Room Air Physical Exam: General Appearance: WD/WN, no apparent distress, + thin Eyes: bilateral eyes PERRL, bilateral eyes EOMI Respiratory/Chest: lungs clear, normal breath sounds Cardiovascular: regular rate, rhythm, no edema, + systolic murmur Abdomen: normal bowel sounds, soft Extremities: + pertinent finding Neurologic/Psychiatric: alert, oriented x 3, + depressed affect, + pertinent finding Skin: normal color, warm/dry (left pectoral region no hematoma and mild ecchymosis) Assessment and Plan Impression: 1. Intermittent CHB s/p dual chamber ppm 08/09/2107 2. Moderate 3. CAD s/p PCI to RCA in past 4. HTN 5. HLD Plan: Ok for discharge home today do not lift the left elbow over the left shoulder for 1 month do not lift more than 10 pounds with the left arm for 2 weeks f/u in our [facility] office for device and wound check next week Discharge planning: home Medications: Medications Administered Medications (Trade) Dose Ordered Sig/Edmond Route Start Time Stop Time Status Last Admin Dose Admin Heparin Sodium (Porcine) (Heparin Sq 5000 Unit/0.5ml) 5,000 unit Q8 SQ 08/09/17 14:00 09/08/17 13:59 08/10/17 05:56 5,000 UNIT Dextrose/Sodium Chloride 1,000 ml @ 40 mls/hr Q24H IV 08/09/17 04:30 08/10/17 00:30 DC 08/09/17 05:12 40 MLS/HR Hydromorphone HCl (Dilaudid Inj) 0.5 mg Q4H PRN IV 08/09/17 04:30 08/23/17 04:29 08/09/17 21:53 0.5 MG Amlodipine Besylate (Norvasc Tab) 2.5 mg DAILY PO 08/09/17 09:00 09/08/17 08:59 08/10/17 08:24 2.5 MG Aspirin (Ecotrin Tab) 81 mg DAILY PO 08/09/17 09:00 09/08/17 08:59 08/10/17 08:24 81 MG Lansoprazole (Prevacid Solutab) 30 mg DAILY PO 08/09/17 09:00 09/08/17 08:59 08/10/17 08:23 30 MG Mirtazapine (Remeron Tab) 30 mg HS PO 08/09/17 21:00 09/08/17 20:59 08/09/17 19:55 30 MG Prednisone (PredniSONE TAB) 6 mg DAILY PO 08/09/17 09:00 09/08/17 08:59 08/10/17 08:23 6 MG Rosuvastatin Calcium (Crestor Tab) 5 mg DAILY PO 08/09/17 09:00 09/08/17 08:59 08/10/17 08:23 5 MG Lorazepam (Ativan Tab) 0.25 mg ONE ONCE PO 08/09/17 05:00 08/09/17 05:10 DC 08/09/17 05:15 0.25 MG Cefazolin Sodium (Ancef Inj) 1,000 mg STK-MED ONCE .ROUTE 08/09/17 12:04 08/09/17 12:05 DC 08/09/17 12:04 1,000 MG Midazolam HCl (Versed Inj) 5 mg STK-MED ONCE .ROUTE 08/09/17 12:54 08/09/17 12:55 DC 08/09/17 12:54 2 MG Acetaminophen/ Codeine Phosphate (Tylenol w/ Codeine #3 Tab) 1 tab for pain scale 4-6 2 t... Q4H PRN PO 08/09/17 13:30 09/08/17 13:29 08/10/17 00:38 2 TAB Levothyroxine Sodium (Synthroid Tab) 88 mcg DAILYBB PO 08/10/17 06:00 09/09/17 05:59 08/10/17 05:55 88 MCG Metoprolol Succinate (Toprol Xl Tab) 12.5 mg BID PO 08/09/17 21:00 09/08/17 20:59 08/10/17 08:22 12.5 MG Tramadol HCl (Ultram Tab) 50 mg TID PRN PO 08/09/17 13:30 09/08/17 13:29 08/09/17 23:13 50 MG Diphenhydramine HCl (Benadryl Cap) 25 mg HS PRN PO 08/09/17 18:15 09/08/17 18:14 08/10/17 00:37 25 MG Lab Results: Telemetry: ASVS ECG: SR CXR: No PTX, RA and RV leads in position PPM Interrogation Today: Stable lead testing from implant yesterday Last 24 Hours Test 08/10/17 05:16 White Blood Count 6.14 K/uL Red Blood Count 4.80 M/uL Hemoglobin 14.4 g/dL Hematocrit 46.1 % Mean Corpuscular Volume 96.0 fL Mean Corpuscular Hemoglobin 30.0 pg Mean Corpuscular Hemoglobin Concent 31.2 g/dl Platelet Count 121 K/uL Mean Platelet Volume 10.8 fL Neutrophils (%) (Auto) 83.7 % Lymphocytes (%) (Auto) 5.9 % Monocytes (%) (Auto) 6.2 % Eosinophils (%) (Auto) 3.7 % Basophils (%) (Auto) 0.2 % Neutrophils # (Auto) 5.14 K/uL Lymphocytes # (Auto) 0.36 K/uL Monocytes # (Auto) 0.38 K/uL Eosinophils # (Auto) 0.23 K/uL Basophils # (Auto) 0.01 K/uL RDW Standard Deviation 50.4 fL RDW Coefficient of Variation 14.3 % Immature Granulocyte % (Auto) 0.3 % Immature Granulocyte # (Auto) 0.02 K/uL Sodium Level 141 mmol/L Potassium Level 4.2 mmol/L Chloride Level 107 mmol/L Carbon Dioxide Level 29 mmol/L Anion Gap 5.0 mmol/L Blood Urea Nitrogen 30 mg/dl Creatinine 1.72 mg/dl Est Creatinine Clear Calc Drug Dose 22.5 ml/min Estimated GFR () 32.0 Estimated GFR (Non- 27.6 BUN/Creatinine Ratio 17.6 Random Glucose 98 mg/dl Calcium Level 8.3 mg/dl
--- NOTE | 2017-08-10 11:06 | Discharge Instructions ---
Discharge Instructions Date of Service Aug 10, 2017. Admission Reason for Admission: Complete Heart Block Discharge Discharge Diagnosis / Problem: Complete heart block Discharge Goals Goal(s): Therapeutic intervention Activity Recommendations Activity Limitations: per Instructions/Follow-up section *Do not lift the left elbow over the left shoulder for 1 month *Do not lift more than 10 pounds with the left arm for 2 weeks *Follow up in [facility] Cardiology office for device and wound check next week Instructions / Follow-Up Instructions / Follow-Up Please follow up with Dr. Kothari/Cardiology office at [facility] next week Please see Dr. Krishna TuesdayAugust 15 at 11:05AM for hospital follow up Current Hospital Diet Patient's current hospital diet: AHA Diet (Heart Healthy) Discharge Diet Recommended Diet: AHA Diet (Heart Healthy) Pending Studies Studies pending at discharge: no Medical Emergencies . Who to Call and When: Medical Emergencies: If at any time you feel your situation is an emergency, please call 911 immediately. . Non-Emergent Contact Non-Emergency issues call your: Primary Care Provider . . "Provider Documentation" section prepared by Crystal Cole. . VTE Core Measure Inpt VTE Proph given/why not?: Unfractionated heparin SQ
--- NOTE | 2017-08-10 11:17 | Discharge Summary ---
Discharge Summary Date of Service Aug 10, 2017. Discharge Summary Admission Date: Aug 09, 2017 at 03:44 Discharge Date: Aug 10, 2017 Discharge Disposition: Home with services Medication Reconciliation Continued Medications: Amlodipine (Norvasc) 2.5 Mg Tab 2.5 MG PO DAILY, TAB Aspirin (Aspirin Ec) 81 Mg Tab 81 MG PO DAILY Lansoprazole (Prevacid Solutab) 30 Mg Tab 30 MG PO DAILY Levothyroxine Sodium (Levothyroxine Sodium) 88 Mcg Tab 88 MCG PO DAILY Metoprolol Succ (Toprol Xl) (Toprol-Xl) 25 Mg Tabcr 12.5 MG PO BID 1/2 TABLET DOSE Mirtazapine (Remeron) 30 Mg Tab 30 MG PO HS Nitroglycerin (Nitrostat) 0.4 Mg Tab 0.4 MG UT UD PRN for Chest Pain Prednisone (Prednisone) 1 Mg Tab 1 MG PO DAILY Prednisone (Prednisone) 5 Mg Tab 5 MG PO DAILY Rosuvastatin Calcium (Rosuvastatin Calcium) 5 Mg Tab 5 MG PO DAILY Tramadol HCl (Tramadol HCl) 50 Mg Tab 50 MG PO TID PRN for Pain Hospital Course Please see H&P from this AM for more details. SYMPTOMATIC INTERMITTENT COMPLETE HEART BLOCK -bradycardia secondary to intermittent complete heart block -held av blocking meds; BB stopped -monitor in tele -pacer pads on patient -EP Cardiology consulted, appreciate recs, planning to take patient for PM placement today HTN: -currently stable -monitor -continue amlodipine Hx of MULTIPLE VTE EVENTS: -multiple DVTs, and PE, s/p IVC filter placement -not a candidate for anticoagulation secondary to history of retroperitoneal bleed CAD: -with prior hx of stent -continued on ASA, statin -BB held due to above PRIOR Hx OF AAA: -per history patient had AAA rupture s/p repair -no related symptoms presently CKD STAGE: -creatinine at baseline -avoid nephrotoxins Hx of AORTIC STENOSIS: per records -TTE: from June 2017 showed EF 55%, concentric LVH, moderate calcific aortic valve stenosis, trace aortic valve regurgitation, mildly enlarged proximal ascending thoracic aorta. 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
[2017-08-10 11:27] VITALS: BP 120/66; PULSE 68; TEMP 36.8; O2SAT 96
--- NOTE | 2017-08-10 12:35 | OPERATIVE REPORT ---
DATE OF OPERATION: 08/10/2017 PREOPERATIVE DIAGNOSIS: Intermittent complete heart block. POSTOPERATIVE DIAGNOSIS: Same. PROCEDURE: Dual chamber rate responsive permanent pacemaker under fluoroscopic guidance. SURGEON: Dr. Shireen Kothari. MEDICAL RECORDS TECHNICIAN: None. ANESTHESIA: Monitored conscious sedation administered under my supervision by Jose Antonio Andrade, total of 2 mg of Versed, start time 1216, end time 1310. IV FLUIDS: 200 mL. ANTIBIOTICS: 1 gram Ancef. ESTIMATED BLOOD LOSS: Less than 20 mL. COMPLICATIONS: None. CONDITION: Stable. URINE OUTPUT: Not applicable. SPECIMENS: None. FINDINGS: See below. DRAINS: None. PRIMARY IT SERVICE CONTINUITY SUPERVISOR: Dr. Pinto. INDICATIONS: This is an 82-year-old female with a past medical history for coronary artery disease, status post PCI to the RCA in the past, moderate aortic stenosis, emergent repair of abdominal aortic aneurysm rupture as well as postop DVT, PE, where she is status post IVC filter because she had significant retroperitoneal bleeding on Coumadin. She had been having some lightheadedness, dizziness, shortness of breath. She wore a CardioNet monitor and was found to have intermittent complete heart block so was recommended a permanent pacemaker. CONSENT: Consent was obtained prior to patient going into the electrophysiology lab. The patient was informed of risks, benefits and alternatives to the procedure. Risks include but not limited to sudden cardiac , cardiac arrhythmias, cerebrovascular accident, myocardial infarction, injury to the blood vessels, chamber of the heart, lungs, bleeding and infection. The patient understood these risks and agreed to undergo the procedure as planned. Informed consent was obtained. DESCRIPTION OF THE PROCEDURE: The patient was brought into the electrophysiology lab in a fasting state. She was connected to continuous potline monitor. A timeout was performed to ensure patient's identity and procedure correctly. The patient was prepped and draped over the left infraclavicular space in normal surgical standard fashion. Moderate conscious sedation was given throughout the procedure for patient's comfort level. [place] precautions were maintained throughout the procedure. 20 mL of 1% lidocaine, bupivacaine mixture were given in the left deltopectoral groove. Incision was made in left deltopectoral groove. Blunt dissection was performed down to identify the cephalic vein. The cephalic vein was identified and isolated using 0 silk ties. It was nicked with an 18 gauge angiocatheter IV set-up and glidewire was inserted without any resistance. An 8-Cymro sheath was then inserted over the guidewire without any resistance. The dilator was removed and a second guidewire was inserted without any resistance through the sheath. The sheath was removed, flushed and dilator reinserted over it and then it was reinserted over one of the glidewires. The dilator and guidewire were removed and the right ventricular pacing lead was then advanced into the right ventricle and positioned in right ventricular apex under fluoroscopic guidance. There was adequate pacing and sensing thresholds and no diaphragmatic stimulation with high output pacing. The 8-Cymro sheath was peeled away and lead was fixated to pectoralis muscle using 0 silk sutures. A second 8-Cymro sheath was ran over the retained guidewire without any resistance. The guidewire and dilator were removed. The right atrial pacing lead was then advanced into the right atrium and positioned into the right atrial appendage under fluoroscopic guidance. There was adequate pacing and sensing thresholds and no diaphragmatic stimulation with high output pacing. The 8-Cymro sheath was peeled away and leads were fixated to pectoralis muscle using 0 silk suture. Additional 10 mL of 1% lidocaine, bupivacaine mixture were given in the pectoralis fascia and then using blunt dissection within the fascia over the pectoralis muscle a pacemaker pocket was created. The pocket was flushed with copious amounts of bacitracin saline wash and inspected for hemostasis. The pulse generator was then attached to the leads making sure that the pins were in appropriate position, passed the set screws and set screws were all tightened. The pulse generator was then placed in the pocket, making sure that the leads were lying flat beneath the device. A stay stitch using 0 silk suture was used to secure the device to the pectoralis muscle. Since the patient did have some significant oozing Zach stat was placed in the pocket then the pocket was closed with a 3-layer fashion using a 2-0 Vicryl interrupted suture followed by a 3-0 Vicryl interrupted suture followed by a 4-0 Monocryl running stitch and Dermabond was applied followed then by a pressure dressing. EQUIPMENT: 1. Pulse generator was an [employer] DR RAMIRO Cunha [id number], serial #[id number]. 2. Right atrial lead, Medtronic 5076-52 cm, serial #[id number]. 3. Right ventricular lead, Medtronic 5076-58 cm, serial #[id number]. INTRAOPERATIVE TESTIN. Right atrial lead: P-wave 3.1 millivolts, impedance 610 ohms, threshold 1.9 volts at 3.5 milliamps. 2. Right ventricular lead: R-wave 15.6 millivolts, impedance 1192 ohms, threshold 0.6 volts at 0.4 milliamps. FINAL MEASUREMENTS THROUGH THE DEVICE: 1. Right atrial lead: P-wave 3.4 millivolts, impedance 608 ohms, threshold 0.5 volts at 0.4 milliseconds. 2. Right ventricular lead: R-wave 20 millivolts, impedance 874 ohms, threshold 0.5 volts at 0.4 milliseconds. FINAL PARAMETERS: MVP-R 60/120. Right atrial amplitude 3.5 volts, pulse width 0.4 milliseconds, sensitivity 0.3 millivolts. Right ventricular amplitude 3.5 volts, pulse width 0.4 milliseconds, and sensitivity 0.9 millivolts. IMPRESSION: Successful implantation of a dual chamber rate responsive permanent pacemaker under fluoroscopic guidance secondary to intermittent complete heart block. PLAN: Monitor patient overnight, 12-lead ECG, chest x-ray. She is not allowed to lift left elbow over left shoulder for 1 month. She cannot lift more than 10 pounds with the left arm for 2 weeks. She can shower tomorrow, let water run over the incision, do not scrub it. She should follow up in our [facility] office in 7-10 days for device and wound check. I attest to the content of the Intraoperative Record and any orders documented therein. Any exception s are noted below.
== END 2017-08-10 12:08 | disposition home health service (06) | DRG 243 ==
LOC: C.EDB 01:11 → C.2E 03:44 → ENRESERV 03:51
PROVIDERS: ADMIT Internal Medicine; ATTEND Internal Medicine
PROC: 02HK0JZ Insertion of Pacemaker Lead into Right Ventricle, Open Approach (ICD-10-PCS; principal; 2017-08-10)
PROC: 0JH606Z Insertion of Pacemaker, Dual Chamber into Chest Subcutaneous Tissue and Fascia, Open Approach (ICD-10-PCS; principal; 2017-08-10)
PROC: 02H60JZ Insertion of Pacemaker Lead into Right Atrium, Open Approach (ICD-10-PCS; principal; 2017-08-10)
DX: I44.2 Atrioventricular block, complete (principal); M33.10 Other dermatomyositis, organ involvement unspecified; I44.7 Left bundle-branch block, unspecified; I12.9 Hypertensive chronic kidney disease with stage 1 through stage 4 chronic kidney disease, or unspecified chronic kidney disease; I25.10 Atherosclerotic heart disease of native coronary artery without angina pectoris; Z95.5 Presence of coronary angioplasty implant and graft; N18.3 Chronic kidney disease, stage 3 (moderate); I35.0 Nonrheumatic aortic (valve) stenosis; E03.9 Hypothyroidism, unspecified; E78.5 Hyperlipidemia, unspecified; Z86.79 Personal history of other diseases of the circulatory system; Z86.14 Personal history of Methicillin resistant Staphylococcus aureus infection; Z86.711 Personal history of pulmonary embolism; Z86.718 Personal history of other venous thrombosis and embolism; Z85.828 Personal history of other malignant neoplasm of skin; Z79.52 Long term (current) use of systemic steroids; Z79.82 Long term (current) use of aspirin; Z79.899 Other long term (current) drug therapy; Z88.1 Allergy status to other antibiotic agents; Z82.49 Family history of ischemic heart disease and other diseases of the circulatory system; Z80.8 Family history of malignant neoplasm of other organs or systems

== ENCOUNTER 2017-09-08 16:00 | Emergency (ER) | payer BC, OTHER ==
[~2017-09-08] VITALS: Ht 162.6 cm; Wt 59.0 kg
[~2017-09-08 16:00] MED LIST changes: +ASPI81TA28 PO; -CHOL4POW11 PO; -CLR10 PEG; -HYOS1TAB PO; -IMD/2 PEG; -LACT12CR TOP; -LACT12LO TOP; +LANS30TA3 PO; -LCTX PEG; -LEVO100T7 PO; +LEVO88TA3 PO; -MIRT15TA2 PO; +MIRT30TA3 PO; -ONDA8TAB6 SL; -OXYC1TAB3 PO; +PRD/1 PO; -PRED-301 PEG; +PRED-301 PO; -PREMARIN CREAM; +ROSU5TAB11 PO; -TRAM-10 PEG; +ULT50 PO; -VNCAQN NAE; -[UNRECOGNIZED DRUG - CODE]
[2017-09-08 16:22] VITALS: Ht 162.6 cm; Wt 59.0 kg
[2017-09-08] MEDS ORDERED: LIDOCAINE 1% BUFFERED INJ 20 ML VIAL INFIL ONE (16:45)
[2017-09-08 17:16] VITALS: BP 124/80; PULSE 87; TEMP 36.5; O2SAT 95
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
[2017-09-20] MEDS ORDERED: FURO-85 PO (08:03)
[2017-09-20] MEDS ORDERED: OXYC-90 PO (08:03)
[2017-09-23] MEDS ORDERED: CLC/300 PO (08:10)
[2017-10-07] MEDS ORDERED: SULF800T23 PO (11:20)
[2017-11-16] MEDS ORDERED: SULF800T23 PO (08:57)
[2018-01-11] MEDS ORDERED: SULF800T23 PO (09:05)
[2018-02-02] MEDS ORDERED: LACT12CR TOP (12:49)
[2018-02-02] MEDS ORDERED: LANS15CA27 PO (12:49)
[2018-02-02] MEDS ORDERED: CHOL100010 PO (12:49)
[2018-02-02] MEDS ORDERED: VNCAQN NAE (12:49)
[2018-02-02] MEDS ORDERED: ESTR10TA3 PV (12:49)
[2018-02-02] MEDS ORDERED: TRAM1CAP PO (12:49)
[2018-02-02] MEDS ORDERED: LSX20 PO (12:49)
[2018-02-02] MEDS ORDERED: IMD/2 PO (12:49)
[2018-02-02] MEDS ORDERED: CLR10 PO (12:49)
[2018-02-02] MEDS ORDERED: LPR25 PO (12:49)
[2018-02-02] MEDS ORDERED: [UNRECOGNIZED DRUG - CODE] TOP (12:49)
[2018-02-02] MEDS ORDERED: LACTTAB7 PO (12:49)
[2018-02-02] MEDS ORDERED: HYOS1TAB PO (12:49)
[2018-02-02] MEDS ORDERED: RMRS/45 PO (12:49)
[2018-02-02] MEDS ORDERED: NRN100 PO (12:49)
[2018-02-02] MEDS ORDERED: AMOX875T PO (13:54)
[2018-04-17] MEDS ORDERED: AMOX500C3 PO (07:43)
[2018-04-24] MEDS ORDERED: CLOP1TAB15 PO (10:07)
== END 2017-09-08 17:17 | disposition home or self-care (01) ==
LOC: C.EDB 16:02 → C.EDD 17:17
DX: S81.811A Laceration without foreign body, right lower leg, initial encounter (principal); W22.8XXA Striking against or struck by other objects, initial encounter; I12.9 Hypertensive chronic kidney disease with stage 1 through stage 4 chronic kidney disease, or unspecified chronic kidney disease; N18.3 Chronic kidney disease, stage 3 (moderate); E78.5 Hyperlipidemia, unspecified; E03.9 Hypothyroidism, unspecified; K21.9 Gastro-esophageal reflux disease without esophagitis; I35.1 Nonrheumatic aortic (valve) insufficiency; I34.0 Nonrheumatic mitral (valve) insufficiency; K58.9 Irritable bowel syndrome, unspecified; M81.0 Age-related osteoporosis without current pathological fracture; Z86.718 Personal history of other venous thrombosis and embolism; Z86.14 Personal history of Methicillin resistant Staphylococcus aureus infection; Z87.19 Personal history of other diseases of the digestive system; Z90.710 Acquired absence of both cervix and uterus; Z98.61 Coronary angioplasty status; Z79.82 Long term (current) use of aspirin; Z79.899 Other long term (current) drug therapy; Z82.49 Family history of ischemic heart disease and other diseases of the circulatory system

== ENCOUNTER 2018-04-19 04:52 | Emergency (ER) | payer BC ==
[~2018-04-19] VITALS: Ht 162.6 cm; Wt 56.6 kg
[~2018-04-19 04:52] MED LIST changes: +AMOX500C3 PO; +CHOL100010 PO; +CLR10 PO; +ESTR10TA3 PV; +HYOS1TAB PO; +IMD/2 PO; +LACT12CR TOP; +LACTTAB7 PO; +LANS15CA27 PO; -LANS30TA3 PO; +LPR25 PO; +LSX20 PO; -METO25TA3 PO; -MIRT30TA3 PO; +NRN100 PO; +OXYC-90 PO; -PRD/1 PO; +RMRS/45 PO; +TRAM1CAP PO; +VNCAQN NAE; +[UNRECOGNIZED DRUG - CODE] TOP
[2018-04-19 04:59] VITALS: TEMP 36.7; Ht 162.6 cm; Wt 56.6 kg
[2018-04-19] MEDS ORDERED: GELATIN SPONGE 12-7MM ONE (05:22)
[2018-04-19] MEDS ORDERED: GELATIN SPONGE 12-7MM EXT ONE (05:30)
[2018-04-19 05:40] VITALS: BP 154/98; PULSE 89; O2SAT 98
--- NOTE | 2018-04-19 05:41 | EMERGENCY ROOM VISIT NOTE ---
ED Visit Note First contact with patient: 05:05 Patient seen and examined at bedside after discussion with the physician clinical education assistant. Area of small ulceration on the right ankle without any active bleeding or bruising. Ankle otherwise unremarkable. No evidence of overlying or surrounding erythema, no other concurrent rashes or sores. Patient already taking antibiotics. No other evidence of trauma. No other systemic symptoms.
--- NOTE | 2018-04-20 04:12 | EMERGENCY ROOM VISIT NOTE ---
History First contact with patient: 05:05 Chief Complaint: BLEEDING Stated Complaint: BLEEDING Nursing Triage Summary: patient states last month she lacerated a vericose vein to her right foot/ankle and since then has been being seen once weekly by woundcare to have dressing changes. today patient was doing her own dressing change and the area began to bleed and would not stop. patient states she takes baby aspirin daily. dressing applied by EMS prior to arrival. History of Present Illness The patient is a 83 year old female who presents to the Emergency Room with complaints of a bleeding wound on her right ankle. The patient states that about a month ago she was seen here at the facility after breaking a varicose vein. This did eventually turn into a small ulcer, and the patient has been followed by the wound care clinic. The patient recently was evaluated by the wound clinic, where a wound culture was performed, and ultimately did grow positive for enterococci. The patient was started on antibiotics and is still taking these as prescribed. The patient states that she woke up this morning about 1 hour ago, at 4 AM, as she has an appointment at 8 AM in [place] for an outpatient heart catheterization at [facility]. The patient states that she went to change the dressing, and had immediate rebleeding of her wound. She was not able to get this to stop and now arrives to the ER via ambulance. The patient does not have other injury or trauma. She does take aspirin on a daily basis but no other blood thinners. She does not have other recent injury or trauma to this area. She is able to ambulate. She rates her discomfort a 1/10. She is concerned because of the bleeding. Review of Systems More than 10 systems were reviewed and otherwise negative with the exception of history of present illness. Past Medical/Surgical History Medical Problems: (1) Aortic valve regurgitation (2) Chronic use of steroids (3) Chronic use of steroids (4) CKD (chronic kidney disease), stage III (5) Complete heart block (6) DJD (degenerative joint disease) (7) Dyslipidemia (8) Fever (9) GERD (gastroesophageal reflux disease) (10) H/O atherosclerosis (11) H/O: GI bleed (12) History of ischemic colitis (13) History of methicillin resistant staphylococcus aureus (MRSA) (14) HTN (hypertension) (15) Hypothyroidism (16) IBS (irritable bowel syndrome) (17) Idiopathic peripheral neuropathy (18) Mitral regurgitation (19) Osteoporosis (20) Personal history of DVT (deep vein thrombosis) (21) Tachycardia Surgical Problems: (1) History of hysterectomy (2) S/P coronary artery stent placement (3) S/p SCC removal left leg (4) S/p SMA stent Family History Heart disease Social History Smoking Status: Never Smoker Alcohol Use: occasionally Drug Use: none Marital Status: Housing Status: lives with family Occupation Status: retired Current/Historical Medications Scheduled Amlodipine (Norvasc), 2.5 MG PO DAILY Amoxicillin (Amoxil), 1 CAP PO TID Aspirin (Aspirin Ec), 81 MG PO DAILY Beclomethasone Dip (Beconase Aq), 1 SPRAY JIA DAILY Cholecalciferol (Vitamin D), 1,000 UNITS PO DAILY Estradiol Vaginal (Yuvafem), 10 MCG PV Q2D Furosemide (Furosemide), 20 MG PO DAILY Gabapentin (Gabapentin), 100 MG PO TID Hyoscyamine Sulfate (Levsin), 0.125 MG PO Q4-6H Lactobacillus (Acidophilus), 1 TAB PO DAILY Lansoprazole (Prevacid), 15 MG PO QAM Levothyroxine Sodium (Levothyroxine Sodium), 88 MCG PO DAILY Loratadine (Claritin), 10 MG PO DAILY Metoprolol Tartrate (Lopressor), 25 MG PO DAILY Mirtazapine (Mirtazapine), 45 MG PO HS Prednisone (Prednisone), 5 MG PO DAILY Rosuvastatin Calcium (Rosuvastatin Calcium), 5 MG PO DAILY Sodium Fluoride (Dental) (Sf), 1 APPLN TOP UD Tramadol HCl (Tramadol HCl ER), 100 MG PO DAILY Scheduled PRN Lactic Acid (Ammonium Lactate) (Lac-Hydrin), 1 APPLN TOP UD PRN for DRYNESS Loperamide Hcl (Imodium), 2 MG PO QID PRN for Diarrhea Nitroglycerin (Nitrostat), 0.4 MG UT UD PRN for Chest Pain Oxycodone Ir (Roxicodone Ir), 1-2 TAB PO Q4H PRN for Severe Pain Tramadol HCl (Tramadol HCl), 50 MG PO Q8 PRN for Severe Pain Physical Exam Vital Signs Date Time Temp Pulse Resp B/P (MAP) Pulse Ox O2 Delivery O2 Flow Rate FiO2 04/19/18 05:40 89 20 154/98 98 04/19/18 04:59 36.7 88 20 163/100 98 Room Air Physical Exam VITALS: Vitals are noted on the nurse's note and reviewed by myself. Vital signs stable. GENERAL: Well-developed, well-nourished, white female, who is in no acute distress and resting comfortably. Patient is cooperative with the examination. HEAD: Normocephalic atraumatic. HEART: Regular rate and rhythm with noted murmur LUNGS: Clear to auscultation bilaterally without wheezes, rales or rhonchi. No retractions or accessory muscle use. MUSCULOSKELETAL: There is a small ulceration on the lateral aspect of the right ankle, roughly 1 cm in maximum diameter. There is no significant active bleeding noted at this time. Medical Decision & Procedures Medications Administered Medications (Trade) Dose Ordered Sig/Edmond Route Start Time Stop Time Status Last Admin Dose Admin Gelatin (Surgifoam Sponge 12-7MM (SMALL)) 1 ea NOW ONCE EXT 04/19/18 05:30 04/19/18 05:31 DC 04/19/18 05:30 1 EA ED Course Physical exam and history were performed. Nursing notes, EMR, and Medication List were personally reviewed. Patient appears to have a small area on her right lower extremity that she is following with the wound clinic for. Initially this was a bleeding varicose vein, and now appears to be with a small ulceration. The patient is on antibiotics at this time. She is followed by the wound clinic. When she changed her dressing today she had rebleeding and was not able to get this controlled at home, although admittedly she did not apply pressure for a very lengthy period of time. Upon arrival to the ER the patient is without any active bleeding. We did cleanse her leg from blood and a Gelfoam dressing was placed. I discussed the case with my attending physician, Dr. matamoros, who also evaluated the patient. Overall we do feel the patient is well for discharge from the department. The patient has an outpatient catheterization scheduled in a few hours at [facility], and it is paramount that she keep this appointment as it is necessary component of preoperative testing so that she may receive a new heart valve. Wound care instructions were discussed, and the patient is to continue her medications. She was invited back to the ER with any new, worsening, or concerning symptoms. The chart was completed utilizing Dragon Speech Voice Recognition Software. Grammatical errors, random word insertions, pronoun errors, and incomplete sentences are an occasional consequence of this system due to software limitations, ambient noise, and hardware issues. Any formal questions or concerns about the content, text, or information contained within the body of this dictation should be directly addressed to the provider for clarification. . Medical Decision Differential diagnosis includes, but is not limited to: Laceration, foreign body , infection, bleeding varicosities, ulceration, and others Impression Primary Impression: Bleeding from varicose veins of right lower extremity Departure Information Dispostion Home / Self-Care Condition GOOD Referrals Vandana Krishna M.D. (PCP) Forms HOME CARE DOCUMENTATION FORM, IMPORTANT VISIT INFORMATION Patient Instructions My [facility] Additional Instructions You were seen and evaluated today on an emergency basis only. This is not a substitute for, or an effort to provide, complete comprehensive medical care. It is not possible to recognize and treat all injuries or illnesses in a single emergency department visit. For this reason it is recommended that you followup with your primary care physician in 2-3 days for a recheck. Call the office today to schedule your appointment. Try to keep the dressing in place until seen by your PCP. You are welcome to return to the emergency department anytime with new, worsening, or concerning symptoms.
[2018-04-24] MEDS ORDERED: CLOP1TAB15 PO (10:07)
== END 2018-04-19 05:48 | disposition home or self-care (01) ==
LOC: EDBD 04:52 → C.EDB 04:53
DX: I83.013 Varicose veins of right lower extremity with ulcer of ankle (principal); A41.81 Sepsis due to Enterococcus; N18.3 Chronic kidney disease, stage 3 (moderate); I12.9 Hypertensive chronic kidney disease with stage 1 through stage 4 chronic kidney disease, or unspecified chronic kidney disease; E03.9 Hypothyroidism, unspecified; Z86.718 Personal history of other venous thrombosis and embolism; Z79.82 Long term (current) use of aspirin; Z79.52 Long term (current) use of systemic steroids; Z79.899 Other long term (current) drug therapy

== ENCOUNTER 2018-04-27 20:24 | Emergency (ER) | payer BC ==
[~2018-04-27] VITALS: Ht 162.6 cm; Wt 56.7 kg
[~2018-04-27 20:24] MED LIST changes: +CLOP1TAB15 PO
[2018-04-27 20:29] VITALS: TEMP 36.6; Ht 162.6 cm; Wt 56.7 kg
[2018-04-27] MEDS ORDERED: LIDOCAINE/EPINEPHRINE 1% 20 ML VIAL INFIL ONE (21:15)
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
[2018-04-27 22:40] VITALS: BP 137/79; PULSE 90; O2SAT 92
--- NOTE | 2018-04-29 00:22 | EMERGENCY ROOM VISIT NOTE ---
ED Visit Note First contact with patient: 20:50 The patient was seen and examined with Arlene Sena PA-C. I agree with the history, physical and findings. Please see the note for disposition and details.
== END 2018-04-27 22:42 | disposition home or self-care (01) ==
LOC: C.EDB 20:25 → C.EDD 22:42
DX: S81.811A Laceration without foreign body, right lower leg, initial encounter (principal); W22.8XXA Striking against or struck by other objects, initial encounter; N18.3 Chronic kidney disease, stage 3 (moderate); I44.2 Atrioventricular block, complete; E78.5 Hyperlipidemia, unspecified; K21.9 Gastro-esophageal reflux disease without esophagitis; I10 Essential (primary) hypertension; E03.9 Hypothyroidism, unspecified; M85.88 Other specified disorders of bone density and structure, other site; R00.0 Tachycardia, unspecified; Z79.82 Long term (current) use of aspirin

== ENCOUNTER 2019-01-16 13:19 | Inpatient (IN) ==
--- OUTSIDE RECORDS SUMMARY | 2019-01-16 13:23 | External Medical Summary | Continuity of Care Document ---
:1935 Author Name Beatriz De Dios, Provider Address Unavailable Unavailable , Care Team Providers Name Role Phone Tameka Steward PA-C Unavailable [email or web address], [email or web address] Unavailable Unavailable Unavailable Unavailable Unavailable Problems Active medical history not documented Allergies and Adverse Reactions Allergy history not documented Medications Medications not documented Procedures Procedures not documented Immunizations Immunizations not documented Plan of Treatment Planned Observations Planned Goals not documented Results No Known Results Results not documented Encounters Appointment; Tameka Steward PA-C 19-Dec-2015 13:00 Encounter Diagnosis: Problem not documented
[2019-01-16] MEDS ORDERED: VANCOMYCIN CONSULT ACTIVE PRN ×2 (14:26→20:22)
[2019-01-16] MEDS ORDERED: PIPERACILLIN/TAZOBACTAM 3.375 GM/115 ML BAG IV STA (14:26)
[2019-01-16] MEDS ORDERED: VANCOMYCIN HCL 1,000 MG in SODIUM CHLORIDE 0.9% 500 ML IV ONE (14:26)
[2019-01-16] MEDS ORDERED: PIPERACILL/TAZOBAC CONSULT ACTIVE PRN ×2 (14:26→20:22)
[2019-01-16] MEDS ORDERED: SODIUM CHLORIDE 0.9% 1000ML 1,000 ML IV SCH (14:30)
[2019-01-16 15:27] LABS: Basophils # (auto) 0.03 K/uL (0-0.2); Basophils % (auto) 0.3 %; Eosinophils # (auto) 0.03 K/uL (0-0.5); Eosinophils % (auto) 0.3 %; Hematocrit (blood only) 40.7 % (37-47); Hemoglobin 13.6 g/dL (12.0-16.0); Immature Granulocytes # (auto) 0.03 K/uL (0.00-0.02); Immature Granulocytes % (auto) 0.3 %; Lymphocytes # (auto) 0.48 K/uL (1.2-3.4); Lymphocytes % (auto) 4.7 %; Mean Corpuscular Hgb Conc 33.4 g/dL (32-36); Mean Corpuscular Volume 88.5 fL (80-100); Mean Platelet Volume 10.9 fL (7.4-10.4); Monocytes % (auto) 12.7 %; Neutrophils # (auto) 8.33 K/uL (1.4-6.5); Neutrophils % (auto) 81.7 %; Platelet Count 142 K/uL (130-400); RDW Coefficient of Variation 15.4 % (11.5-14.5); RDW Standard Deviation 50.2 fL (36.4-46.3)
[2019-01-16 15:47] LABS: Alanine Aminotransferase 20 U/L (12-78); Albumin Globulin Ratio 0.8 (0.9-2); Albumin Level 3.1 gm/dl (3.4-5.0); Alkaline Phosphatase 92 U/L (45-117); BUN Creatinine Ratio 14.4 (10-20); Bilirubin,Total 0.6 mg/dl (0.2-1); Blood Urea Nitrogen 27 mg/dl (7-18); Calcium 8.5 mg/dl (8.5-10.1); Carbon Dioxide 24 mmol/L (21-32); Chloride 104 mmol/L (98-107); Creatinine Clr Calc Pharmacy 19.3 ml/min; Est GFR (African American) 28.3; Est GFR (Non-African American) 24.5; Glucose 84 mg/dl (70-99); Sodium 136 mmol/L (136-145); Total Protein 7.1 gm/dl (6.4-8.2); Troponin I < 0.015 ng/ml (0-0.045)
--- NOTE | 2019-01-16 16:16 | CT Scan Report ---
CT abd pelvis wo con CT DOSE: 584.65 mGycm HISTORY: febrile, abdo pain w/rad to back. hx of AAA repair TECHNIQUE: Multiaxial CT images of the abdomen and pelvis were performed without contrast. A dose lo wering technique was utilized adhering to the principles of ALARA. COMPARISON STUDY: 02/02/2018 FINDINGS: Chronic pleural reaction left base. Unchanged hiatal hernia. Extensive atherosclerotic barrientos ge of the abdominal and pelvic arterial vasculature. Stent graft involving the abdominal aorta unchanged in appearance. Inferior vena caval filter is pres ent with prominent extending extrinsic to the lumen of the inferior vena cava. This is similar compar ed to the prior study. Nonobstructive bowel pattern. Increased fecal load within the colon. Bladder is midline. Patient is p ost left hip pain. Findings of chronic colonic diverticulosis. No evidence for acute diverticulitis. Kidneys demonstrate moderate age-related cortical thinning. No evidence for hydronephrosis. Gallbladder is mildly distended. There are several small gallstones. IMPRESSION: 1. Chronic pleural thickening left lung base. 2. Stable hiatal hernia. 3. Gallstones. 4. Unchanged appearance of aorto by iliac stent placement. 5. Moderate increase in fecal load throughout the bulk of the colon consistent with a component of fecal stasis. 5. Chronic colonic diverticulosis with no evidence for acute diverticulitis. The above report was generated using voice recognition software. It may contain grammatical, syntax or spelling errors. Electronically signed by: Walter Mortensen M.D. 01/16/2019 4:15 PM
--- NOTE | 2019-01-16 16:19 | Emergency Department Note ---
Entered by Nitza Greene acting as a scribe for Kj Smith MD History of Present Illness General Chief complaint: Abdominal Pain Stated complaint: ABD PAIN Time Seen by Provider: 01/16/19 13:38 Source: patient Mode of arrival: ambulatory Limitations: no limitations History of Present Illness Onset (ago): day(s) 1 Location: abdomen Pain Consistency: + other (worsening) Current Pain Intensity: 6 Associated symptoms: + fever/chills (The patient complains of fever. ), + loss of appetite and + other (The patient complains of abdominal pain. The patient denies dizziness, diarrhea, and hematuria. ); no chest pain, no cough, no headaches, no nausea/vomiting, no shortness of breath and no weakness The patient is an 83 year old female with a history of CAD, a stent, AAA, DVT, PE, CKD stage 4, aortic valve replacement, hypertension, hypothyroidism, and IBS who presents to the ED with complaints of worsening abdominal pain that onset 1 day ago. The patient states that she called her PCP yesterday with complaints of urinary symptoms and was started on Bactrim. She notes that she has taken 2 doses thus far. The patient states that she saw her PCP today and had a fever of 101.8 in the office. The patient rates the pain as a 6/10 in severity, and men tioned that it is exacerbated with movement and alleviated with rest. She states that her last bowel movement was yesterday and was normal. The patient complains of loss of appetite. The patient denies headache, chest pain, shortness of breath, cough, weakness, nausea, vomiting, diarrhea, dizziness, and hematuria. Home Medications Home Medications Medication Instructions Recorded Confirmed Type aspirin 81 mg tablet,delayed 81 mg PO DAILY 05/01/18 01/16/19 History release beclomethasone dipropionate 42 1 spray INTRANASAL DAILY 05/01/18 01/16/19 History mcg/actuation nasal spray cholecalciferol (vitamin D3) 1,000 1,000 units PO DAILY 05/01/18 01/16/19 History unit capsule clopidogrel 75 mg tablet 75 mg PO DAILY 05/01/18 01/16/19 History lansoprazole 15 mg capsule,delayed 15 mg PO QAM cap 05/01/18 01/16/19 History release loperamide 2 mg capsule 2 mg PO QID PRN cap 05/01/18 01/16/19 History loratadine 10 mg tablet 10 mg PO DAILY 05/01/18 01/16/19 History mirtazapine 45 mg tablet 45 mg PO HS tab 05/01/18 01/16/19 History nitroglycerin 0.4 mg sublingual 0.4 mg SL DIRECTED PRN 05/01/18 01/16/19 History tablet oxycodone 5 mg capsule 5 mg PO Q4H PRN cap 05/01/18 01/16/19 History rosuvastatin 5 mg tablet 5 mg PO DAILY 05/01/18 01/16/19 History sodium fluoride 1.1 % dental cream 1 appln DT DAILY gm 05/01/18 01/16/19 History Lac-Hydrin Five 1 applic TOPICAL DAILY 11/28/18 01/16/19 History amoxicillin 2,000 mg PO DIRECTED PRN 11/28/18 01/16/19 History cranberry extract 200 mg PO DAILY 11/28/18 01/16/19 History levothyroxine 75 mcg PO DAILY 11/28/18 01/16/19 History melatonin 20 mg PO HS 11/28/18 01/16/19 History metoprolol succinate 25 mg PO DAILY 11/28/18 01/16/19 History prednisone 5 mg PO DAILY 11/28/18 01/16/19 History sulfamethoxazole-trimethoprim 1 tab PO Q12 #10 tab 11/30/18 01/16/19 Rx amlodipine [Norvasc] 2.5 mg PO DAILY 01/16/19 01/16/19 History Allergies Allergy/AdvReac Type Severity Reaction Status Date / Time Cipro Allergy Intermediate RASH Verified 04/19/18 05:27 ciprofloxacin Allergy Intermediate RASH Verified 01/16/19 15:22 metronidazole Allergy Intermediate RASH Verified 01/16/19 15:22 cefuroxime Allergy Unknown RASH Verified 01/16/19 15:22 nitrofurantoin Allergy Unknown UKN Verified 01/16/19 15:22 liothyronine AdvReac Mild RAPID Verified 01/16/19 15:22 HEART RATE Bisphosphonates AdvReac Intermediate GI UPSET Uncoded 01/16/19 15:22 Past Med/Surg History Medical History Aftercare following right hip joint replacement surgery (Chronic) Angina pectoris, unspecified (Chronic) Cardiac catheterization as the cause of abnormal reaction of the patient, or of later complication, without mention of misadventure at the time of the procedure (Chronic) DVT (deep venous thrombosis) (Chronic) Hx of skin cancer, basal cell (Chronic) Hx of squamous cell carcinoma (Chronic) Left bundle branch block (Chronic) PVD (peripheral vascular disease) (Chronic) Pacemaker (Chronic) Peripheral neuropathy (Chronic) Renal disease (Chronic) Sinus tachycardia (Chronic) Wears dentures (Chronic) Cataracts, bilateral (Resolved) Surgical History H/O aortic aneurysm repair (Chronic) History of cataract removal with insertion of prosthetic lens (Chronic) H/O heart artery stent (Resolved) Family History Other Heart disease Social History Preferred Language: Maltese Communication Ability: Effective Blockers Skiver Required: No Beliefs That Will Affect Care: None marital status: Current Living Situation: Spouse current occupation: retired Feels Safe at Home: Yes Safety Concerns: Feels Safe At This Time Smoking Status: Never smoker Do You Dip or Chew Tobacco: No Hx Alcohol Use: Yes Alcohol type: wine Hx Substance Use: No Review of Systems See HPI for pertinent positives & negatives. and A total of 10 systems reviewed and were otherwise negative Physical Exam Vital Signs Vital Signs - 24 hr 01/16/19 13:22 01/16/19 13:23 01/16/19 14:41 Temperature 36.8 C 36.8 C Temperature Source Oral Oral Sepsis Recent Fever Within 48 Hours No No Sepsis New/Unexplained Change in Mental Status No No Sepsis Action Taken by Nursing No Action Required No Action Required Pulse Rate 127 H 104 H 127 H Pulse Rate [Apical] Pulse Rate from SpO2 Sensor Pulse Rhythm Regular Pulse Rhythm [Apical] Pulse Strength [Apical] Respiratory Rate 16 16 16 Respiratory Effort / Characteristics Respiratory Depth Respiratory Pattern Blood Pressure 145/76 H 145/76 H Blood Pressure [Left Arm] Blood Pressure Mean 99 99 Blood Pressure Mean [Left Arm] Blood Pressure Position [Left Arm] Pulse Oximetry 95 95 95 Oxygen Delivery Method Room Air Room Air Room Air 01/16/19 15:30 01/16/19 15:59 01/16/19 16:15 Temperature Temperature Source Sepsis Recent Fever Within 48 Hours Sepsis New/Unexplained Change in Mental Status Sepsis Action Taken by Nursing Pulse Rate Pulse Rate [Apical] 105 H 103 H Pulse Rate from SpO2 Sensor Pulse Rhythm Pulse Rhythm [Apical] Regular Regular Pulse Strength [Apical] Normal Normal Respiratory Rate 16 18 Respiratory Effort / Characteristics Non-Labored Spontaneous Non-Labored Spontaneous Respiratory Depth Normal Normal Respiratory Pattern Regular Regular Blood Pressure Blood Pressure [Left Arm] 112/74 107/66 Blood Pressure Mean Blood Pressure Mean [Left Arm] 86 79 Blood Pressure Position [Left Arm] Pulse Oximetry 98 97 Oxygen Delivery Method Room Air Room Air Room Air 01/16/19 17:04 01/16/19 17:30 01/16/19 18:01 Temperature Temperature Source Sepsis Recent Fever Within 48 Hours Sepsis New/Unexplained Change in Mental Status Sepsis Action Taken by Nursing Pulse Rate 97 H 97 H 93 H Pulse Rate [Apical] Pulse Rate from SpO2 Sensor 95 H Pulse Rhythm Pulse Rhythm [Apical] Pulse Strength [Apical] Respiratory Rate 17 18 13 Respiratory Effort / Characteristics Respiratory Depth Respiratory Pattern Blood Pressure 111/64 133/71 101/73 Blood Pressure [Left Arm] Blood Pressure Mean 79 91 82 Blood Pressure Mean [Left Arm] Blood Pressure Position [Left Arm] Pulse Oximetry 97 98 97 Oxygen Delivery Method Room Air Room Air Room Air 01/16/19 19:31 01/16/19 19:52 Temperature 37.3 C Temperature Source Oral Sepsis Recent Fever Within 48 Hours Sepsis New/Unexplained Change in Mental Status Sepsis Action Taken by Nursing Pulse Rate 102 H Pulse Rate [Apical] Pulse Rate from SpO2 Sensor Pulse Rhythm Pulse Rhythm [Apical] Pulse Strength [Apical] Respiratory Rate 18 20 Respiratory Effort / Characteristics Non-Labored Respiratory Depth Normal Respiratory Pattern Regular Blood Pressure 122/72 Blood Pressure [Left Arm] 138/86 Blood Pressure Mean Blood Pressure Mean [Left Arm] 103 Blood Pressure Position [Left Arm] Sitting Pulse Oximetry 96 96 Oxygen Delivery Method Room Air Room Air GENERAL: Awake, alert, ill-appearing, in no distress HENT: Normocephalic, atraumatic. Oropharynx with dry mucous membranes and otherwise unremarkable. EYES: Normal conjunctiva. Sclera non-icteric. NECK: Supple. No nuchal rigidity. FROM. No JVD. RESPIRATORY: Normal exam. CARDIAC: Tachycardic rate, normal rhythm. Extremities warm and well perfused. Pulses equal. ABDOMEN: Soft, non-distended. Mild suprapubic discomfort without discrete tenderness to palpation. No rebound or guarding. No masses. RECTAL: Deferred. MUSCULOSKELETAL: Chest examination reveals no tenderness. The back is symmetrical on inspection without obvious abnormality. There is no CVA tenderness to palpation. No joint edema. LOWER EXTREMITIES: Calves are equal size bilaterally and non-tender. Scant lower extremity edema. No erythema or warmth. NEURO: Normal sensorium. No sensory or motor deficits noted. SKIN: No rash or jaundice noted. Course 1343: Past medical records reviewed. The patient was evaluated in room B02. A complete history and physical examination was performed. 1700: Resident Dr. Mancuso, discussed case with Sveta Angelo, [facility], who will evaluate the patient for admission. Administered Medications Heparin Sodium (Porcine) (Heparin Sodium (Porcine)) 5,000 units SQ Q12 BHAVYA Stop: 02/15/19 20:59 Last Admin: 01/16/19 21:27 Dose: 5,000 units Documented by: [id number] Cosigned by: [id number] Sodium Chloride (Nss 1000ml) 1,000 mls @ 75 mls/hr IV .[id number] BHAVYA Stop: 02/15/19 19:55 Last Admin: 01/16/19 20:15 Dose: 125 mls/hr Documented by: [id number] Piperacillin Sod/Tazobactam (Sod 3.375 gm/ Dextrose) 115 mls @ 28.75 mls/hr IV Q12H BHAVYA; Protocol Stop: 01/26/19 21:59 Last Admin: 01/16/19 21:49 Dose: 28.8 mls/hr Documented by: [id number] Metoprolol Succinate (Toprol Xl) 25 mg PO DAILY BHAVYA Stop: 02/15/19 18:44 Last Admin: 01/16/19 19:30 Dose: 25 mg Documented by: [id number] Mirtazapine (Remeron Solutab) 45 mg PO HS BHAVYA Stop: 02/15/19 20:59 Last Admin: 01/16/19 21:27 Dose: 45 mg Documented by: [id number] Polyethylene Glycol (Miralax Powder Packet) 17 gm PO DAILY BHAVYA Stop: 02/15/19 19:55 Last Admin: 01/16/19 21:26 Dose: Not Given Documented by: [id number] Prednisone (Prednisone) 5 mg PO DAILY BHAVYA Stop: 02/15/19 18:44 Last Admin: 01/16/19 19:30 Dose: 5 mg Documented by: [id number] Senna/Docusate Sodium (Senokot S) 1 tab PO BID BHAVYA Stop: 02/15/19 20:59 Last Admin: 01/16/19 21:27 Dose: 1 tab Documented by: [id number] Discontinued Medications Piperacillin Sod/Tazobactam Sod (Zosyn) 3.375 gm in 115 mls @ 230 mls/hr IV NOW STA Stop: 01/16/19 14:55 Last Infusion: 01/16/19 16:44 Dose: 0 mls/hr Documented by: [id number] Admin: 01/16/19 16:15 Dose: 230 mls/hr Documented by: [id number] Sodium Chloride (Nss 1000ml) 1,000 mls @ 999 mls/hr IV .Q1H1M BHAVYA Stop: 01/16/19 15:30 Last Infusion: 01/16/19 17:29 Dose: 0 mls/hr Documented by: [id number] Admin: 01/16/19 15:46 Dose: 999 mls/hr Documented by: [id number] Vancomycin HCl 1,000 mg/ (Sodium Chloride) 520 mls @ 200 mls/hr IV NOW ONE; Protocol Stop: 01/16/19 17:01 Last Infusion: 01/16/19 20:22 Dose: 0 mls/hr Documented by: [id number] Admin: 01/16/19 16:44 Dose: 200 mls/hr Documented by: [id number] Sodium Chloride (Nss 1000ml) 1,000 mls @ 999 mls/hr IV .Q1H1M ONE Stop: 01/16/19 17:29 Last Infusion: 01/16/19 20:21 Dose: 0 mls/hr Documented by: [id number] Admin: 01/16/19 17:29 Dose: 999 mls/hr Documented by: [id number] Lorazepam (Ativan) 0.25 mg PO NOW STA Stop: 01/16/19 21:07 Last Admin: 01/16/19 21:49 Dose: 0.25 mg Documented by: [id number] Medical Decision Making Differential Diagnosis Differential diagnoses: Viral syndrome, otitis, pharyngitis, pneumonia, influenza, meningitis, urinary tract infection, sepsis, bacteremia, as well as others were entertained. Medical Records Attestation: I reviewed the patient's medical records. Home Medications Current Medication List: was personally reviewed by me Laboratory Data Attestation: I reviewed the patient's lab results. Result diagrams: 01/16/19 14:55 01/16/19 16:26 Lab Results 01/16/19 01/16/19 01/16/19 Range/Units 14:55 14:55 14:55 WBC 10.20 (4.8-10.8) K/uL RBC 4.60 (4.2-5.4) M/uL Hgb 13.6 (12.0-16.0) g/dL Hct 40.7 (37-47) % MCV 88.5 (80-100) fL MCH 29.6 (25-34) pg MCHC 33.4 (32-36) g/dL RDW Std Deviation 50.2 H (36.4-46.3) fL RDW Coeff of Anatoly 15.4 H (11.5-14.5) % Plt Count 142 (130-400) K/uL MPV 10.9 H (7.4-10.4) fL Immature Gran % (Auto) 0.3 % Neut % (Auto) 81.7 % Lymph % (Auto) 4.7 % [place] % (Auto) 12.7 % Eos % (Auto) 0.3 % Baso % (Auto) 0.3 % Immature Gran # (Auto) 0.03 H (0.00-0.02) K/uL Neut # (Auto) 8.33 H (1.4-6.5) K/uL Lymph # (Auto) 0.48 L (1.2-3.4) K/uL [place] # (Auto) 1.30 H (0.11-0.59) K/uL Eos # (Auto) 0.03 (0-0.5) K/uL Baso # (Auto) 0.03 (0-0.2) K/uL Sodium 136 (136-145) mmol/L Potassium (3.5-5.1) mmol/L Chloride 104 (98-107) mmol/L Carbon Dioxide 24 (21-32) mmol/L Anion Gap 8.0 (3-11) BUN 27 H (7-18) mg/dl Creatinine 1.89 H (0.6-1.2) mg/dl Est Cr Clr Drug Dosing 19.3 ml/min Est GFR ( Amer) 28.3 Est GFR (Non-Af Amer) 24.5 BUN/Creatinine Ratio 14.4 (10-20) Glucose 84 (70-99) mg/dl Lactate 1.2 (0.4-2.0) mmol/L Calcium 8.5 (8.5-10.1) mg/dl Total Bilirubin 0.6 (0.2-1) mg/dl AST (15-37) U/L ALT 20 (12-78) U/L Alkaline Phosphatase 92 (45-117) U/L Troponin I < 0.015 (0-0.045) ng/ml Total Protein 7.1 (6.4-8.2) gm/dl Albumin 3.1 L (3.4-5.0) gm/dl Globulin 4.0 (2.5-4.0) gm/dl Albumin/Globulin Ratio 0.8 L (0.9-2) Lipase 47 L (73-393) U/L Procalcitonin (0-0.5) ng/ml Urine Color Urine Appearance (Clear) Urine pH (4.5-7.5) Ur Specific [place] (1.000-1.030) Urine Protein (Negative) Urine Glucose (UA) (Negative) Urine Ketones (Negative) Urine Blood (Negative) Urine Nitrite (Negative) Urine Bilirubin (Negative) Urine Urobilinogen (Negative) Ur Leukocyte Esterase (Negative) Urine WBC (Auto) (0-5) /hpf Urine RBC (Auto) (0-4) /hpf U Hyaline Cast (Auto) (0-5) /lpf U Epithel Cells (Auto) (0-5) /lpf Urine Bacteria (Auto) (Negative) 01/16/19 01/16/19 01/16/19 Range/Units 16:26 16:26 17:25 WBC (4.8-10.8) K/uL RBC (4.2-5.4) M/uL Hgb (12.0-16.0) g/dL Hct (37-47) % MCV (80-100) fL MCH (25-34) pg MCHC (32-36) g/dL RDW Std Deviation (36.4-46.3) fL RDW Coeff of Anatoly (11.5-14.5) % Plt Count (130-400) K/uL MPV (7.4-10.4) fL Immature Gran % (Auto) % Neut % (Auto) % Lymph % (Auto) % [place] % (Auto) % Eos % (Auto) % Baso % (Auto) % Immature Gran # (Auto) (0.00-0.02) K/uL Neut # (Auto) (1.4-6.5) K/uL Lymph # (Auto) (1.2-3.4) K/uL [place] # (Auto) (0.11-0.59) K/uL Eos # (Auto) (0-0.5) K/uL Baso # (Auto) (0-0.2) K/uL Sodium (136-145) mmol/L Potassium 4.0 (3.5-5.1) mmol/L Chloride (98-107) mmol/L Carbon Dioxide (21-32) mmol/L Anion Gap (3-11) BUN (7-18) mg/dl Creatinine (0.6-1.2) mg/dl Est Cr Clr Drug Dosing ml/min Est GFR ( Amer) Est GFR (Non-Af Amer) BUN/Creatinine Ratio (10-20) Glucose (70-99) mg/dl Lactate (0.4-2.0) mmol/L Calcium (8.5-10.1) mg/dl Total Bilirubin (0.2-1) mg/dl AST 14 L (15-37) U/L ALT (12-78) U/L Alkaline Phosphatase (45-117) U/L Troponin I (0-0.045) ng/ml Total Protein (6.4-8.2) gm/dl Albumin (3.4-5.0) gm/dl Globulin (2.5-4.0) gm/dl Albumin/Globulin Ratio (0.9-2) Lipase (73-393) U/L Procalcitonin 0.14 (0-0.5) ng/ml Urine Color Yellow Urine Appearance Clear (Clear) Urine pH 7.5 (4.5-7.5) Ur Specific [place] 1.011 (1.000-1.030) Urine Protein Negative (Negative) Urine Glucose (UA) Negative (Negative) Urine Ketones Negative (Negative) Urine Blood Trace H (Negative) Urine Nitrite Negative (Negative) Urine Bilirubin Negative (Negative) Urine Urobilinogen Negative (Negative) Ur Leukocyte Esterase Trace H (Negative) Urine WBC (Auto) 10-30 H (0-5) /hpf Urine RBC (Auto) 0-4 (0-4) /hpf U Hyaline Cast (Auto) 0 (0-5) /lpf U Epithel Cells (Auto) 5-10 H (0-5) /lpf Urine Bacteria (Auto) Negative (Negative) Imaging Data Radiologist's Impression: Radiology results as stated below per my review and the radiologist's interpretation: XR chest 1V portable CLINICAL HISTORY: Sepsis dyspnea COMPARISON STUDY: 11/28/2018 FINDINGS: Mild stable cardiomegaly. Fixed lateral hernia. Diaphragms are smooth. Lungs are considered clear. Permanent bipolar cardiac pacemaker unchanged in position. IMPRESSION: No acute process. Chronic and postoperative change. The above report was generated using voice recognition software. It may contain grammatical, syntax or spelling errors. Electronically signed by: Walter Mortensen M.D. 01/16/2019 4:19 PM --- CT abd pelvis wo con CT DOSE: 584.65 mGycm HISTORY: febrile, abdo pain w/rad to back. hx of AAA repair TECHNIQUE: Multiaxial CT images of the abdomen and pelvis were performed without contrast. A dose lowering technique was utilized adhering to the principles of ALARA. COMPARISON STUDY: 02/02/2018 FINDINGS: Chronic pleural reaction left base. Unchanged hiatal hernia. Extensive atherosclerotic change of the abdominal and pelvic arterial vasculature. Stent graft involving the abdominal aorta unchanged in appearance. Inferior vena caval filter is present with prominent extending extrinsic to the lumen of the inferior vena cava. This is similar compared to the prior study. Nonobstructive bowel pattern. Increased fecal load within the colon. Bladder is midline. Patient is post left hip pain. Findings of chronic colonic diverticulosis. No evidence for acute diverticulitis. Kidneys demonstrate moderate age-related cortical thinning. No evidence for hydronephrosis. Gallbladder is mildly distended. There are several small gallstones. IMPRESSION: 1. Chronic pleural thickening left lung base. 2. Stable hiatal hernia. 3. Gallstones. 4. Unchanged appearance of aorto by iliac stent placement. 5. Moderate increase in fecal load throughout the bulk of the colon consistent with a component of fecal stasis. 5. Chronic colonic diverticulosis with no evidence for acute diverticulitis. The above report was generated using voice recognition software. It may contain grammatical, syntax or spelling errors. Electronically signed by: Walter Mortensen M.D. 01/16/2019 4:15 PM ECG Data Attestation: I personally reviewed and interpreted this ECG as follows: Indication: abdominal pain Rate (beats per minute): 108 Rhythm: sinus tachycardia Findings: + other (normal axis, non-specific interventricular conduction delay); no acute ischemic change Comparison ECG Date: from (11/28/2018) Change: no significant change (QRS is much shorter) Blood Pressure Blood Pressure Findings: Elevated blood pressure Blood Pressure Disposition: Referred to patients primary care provider MDM Narrative The patient is a pleasant 83-year-old woman with a complicated past medical history of AAA, CAD status post PCI, complete heart block status post PPM, stage III CKD, aortic regurgitation, hypertension, hyperlipidemia, history of GI bleed, PE, urosepsis who presents emergency department with lower abdominal pain and feverishness with fever to 101 at PCPs office today referred to emergency department for further evaluation. On arrival the patient is fatigued/ill- appearing but no acute distress, afebrile with heart rate in the 120s and vital signs otherwise stable. The patient appears clinically dry. She has mild suprapubic discomfort without discrete tenderness. EKG demonstrates sinus tachycardia with intraventricular conduction delay similar to prior EKG which demonstrates left bundle branch block. Otherwise no evidence of overt acute ischemia. WBC, H/H, platelets wnl. Chemistry without acidosis. Creatinine 1.89 increased from recent but within patient's prior range. LFTs and electrolytes unremarkable. Lactate wnl. Troponin negative. Procalcitonin pending. UA pending. However, patient did receive 2 doses of Bactrim prior to her presentation and therefore unclear how reliable these results will be. CT abdomen pelvis negative for acute process. Given the patient's complicated history in the setting of presentation with tachycardia and objective fevers and her PCP clinic reasonable to admit the patient for sepsis rule out. Patient treated empirically for sepsis with Zosyn and Vancomycin. Resident Dr. Mancuso, discussed case with Sveta Angelo, [facility], who will evaluate the patient for admission. This patient was managed with the assistance of resident, Dr. De Los Santos. I discussed the case with the resident, examined the patient, and confirm the findings and plan as documented in this note. Impression & Plan UTI (urinary tract infection) Discharge Plan Visit Data *Final* Discharge Date/Time: 01/16/19 19:31 Chief Complaint: Abdominal Pain Stated Complaint: ABD PAIN ED Provider: Kj Smith ED Midlevel Provider: Ousmane De Los Santos Discharge Problem: UTI (urinary tract infection) Patient Disposition: Admitted As Inpatient Discharge Instructions Interventions: ED Discharge Assessment Last Done: 01/16/19 19:31 Discharge Problem: UTI (urinary tract infection) Qualifiers: Urinary tract infection type: acute cystitis Hematuria presence: without hematuria Qualified Code(s): N30.00 - Acute cystitis without hematuria The scribe's documentation has been prepared under my direction and personally reviewed by me in its entirety. I confirm that the note above accurately reflects all work, treatment, procedures, and medical decision making performed by me.
[2019-01-16] MEDS ORDERED: SODIUM CHLORIDE 0.9% 1000ML 1,000 ML IV ONE (16:29)
--- NOTE | 2019-01-16 16:40 | Emergency Department Note ---
ED Visit Note I, Ousmane De Los Santos, PGY-2, participated in the care of this patient with Dr. Smith. . Resident Activity Tracking Resident Involvement: Resident Care Provided Care Provided: Adult ED
[2019-01-16 17:44] LABS: Appearance Urine Clear (Clear); Bacteria Urine Automated Negative (Negative); Bilirubin Urine Negative (Negative); Blood Urine Trace (Negative); Cast Urine Automated 0 /lpf (0-5); Color Urine Yellow; Glucose Urine UA Negative (Negative); Ketones Urine Negative (Negative); Leukocyte Esterase Urine Trace (Negative); Nitrite Urine Negative (Negative); Protein Urine Negative (Negative); RBC Urine Automated 0-4 /hpf (0-4); Specific Gravity Urine 1.011 (1.000-1.030); Urobilinogen Urine Negative (Negative); pH Urine 7.5 (4.5-7.5)
--- NOTE | 2019-01-16 17:47 | History & Physical Report ---
Date of Service January 16, 2019 Assessment & Plan (1) Abdominal pain: Patient presents with lower abdominal pain associated with back pain, fever, Hypotension H/O Irritable bowel syndrome, H/O Multiple UTIs R/O sepsis, UTI Took Bactrim for 2 days prescribed by PCP Constipation --CT ABD:Chronic pleural thickening left lung base. Stable hiatal hernia. Gallstones. Unchanged appearance of aorto by iliac stent placement. Moderate increase in fecal load throughout the bulk of the colon consistent with a component of fecal stasis. Chronic colonic diverticulosis with no evidence for acute diverticulitis. --Check abdominal doppler given H/O AAA S/P repair --Start Bowel regimen for constipation --Hold Imodium --Empirically Start on broad spectrum Antibiotics --Obtain blood/Urine culture --Lactate levels normal --IV fluids for hypotension --Hold Amlodipine --Check MRSA screen --UA not suggestive of UTI --Noted gallstone on CT--normal LFTs Sinus Tachycardia: Missed today's medications Restart Metoprolol monitor CAD s/p stent Denies chest pain Continue aspirin, Plavix, metoprolol, statin Dyslipidemia Continue Statins Hypothyroidism Continue levothyroxine Hypertension Currently hypotensive Blood pressure improved with IVF Hold amlodipine H/O DVT/PE S/P IVC filter currently not on anticoagulation due to h/o retroperitoneal bleeds AAA S/P repair H/O Aortic Stenosis S/P TAVR Monitor volume status closely and discontinue IV fluids when appropriate CKD IV Creatinine at baseline Monitor renal function H/O complete heart block S/P pacemaker DVT Px: Heparin SQ CODE STATUS DNI DNR as per my discussion with the patient Disposition PT OT prior to discharge Expect to discharge home in stable. History of Present Illness Chief Complaint: Abdominal Pain Primary Care Provider: Vandana Krishna MD Patient is an 83-year-old female with history of CAD s/p stent, irritable bowel syndrome, fibromyalgia, dyslipidemia, hypothyroidism, hypertension, DVT, PE status post IVC filter--currently not on anticoagulation due to history of retroperitoneal bleeds, AAA S/P repair, LBBB, H/O Aortic Stenosis S/P TAVR, CKD IV, history of complete heart block status post pacemaker, H/O multiple E.coli UTIs and other problems presents with history of abdominal pain and fever. Patient reports the abdominal pain is like "Bad Ache" which is all across the abdomen, nonradiating, not associated with food intake, increases with movement, decreases with rest. Reports associated lower back pain. Currently patient denies any abdominal pain while in ED. She abdominal pain started yesterday. Denies any blood in stools. Patient called her PCP due to abdominal pain yesterday and was thought to have a urinary tract infection and was prescribed Bactrim which she took it for 2 days. Appetite is normal. Last bowel movement was yesterday. Patient was evaluated today at her PCPs office and was found to have fever of 101.8 F and so was sent to ED for further evaluation as per patient. Patient admits to not taking her medications today. She uses Imodium as needed for her irritable bowel. She follows with Dr. Irvin as outpatient. Denies any history of chest pain, SOB, dizziness, cough, nausea, vomiting, diarrhea, dysuria, hematuria, increased urinary frequency. Allergies Allergy/AdvReac Type Severity Reaction Status Date / Time Cipro Allergy Intermediate RASH Verified 04/19/18 05:27 ciprofloxacin Allergy Intermediate RASH Verified 01/16/19 15:22 metronidazole Allergy Intermediate RASH Verified 01/16/19 15:22 cefuroxime Allergy Unknown RASH Verified 01/16/19 15:22 nitrofurantoin Allergy Unknown UKN Verified 01/16/19 15:22 liothyronine AdvReac Mild RAPID Verified 01/16/19 15:22 HEART RATE Bisphosphonates AdvReac Intermediate GI UPSET Uncoded 01/16/19 15:22 Home Medications Home Medications Medication Instructions Recorded Confirmed Type aspirin 81 mg tablet,delayed 81 mg PO DAILY 05/01/18 01/16/19 History release beclomethasone dipropionate 42 1 spray INTRANASAL DAILY 05/01/18 01/16/19 History mcg/actuation nasal spray cholecalciferol (vitamin D3) 1,000 1,000 units PO DAILY 05/01/18 01/16/19 Histor y unit capsule clopidogrel 75 mg tablet 75 mg PO DAILY 05/01/18 01/16/19 History lansoprazole 15 mg capsule,delayed 15 mg PO QAM cap 05/01/18 01/16/19 History release loperamide 2 mg capsule 2 mg PO QID PRN cap 05/01/18 01/16/19 History loratadine 10 mg tablet 10 mg PO DAILY 05/01/18 01/16/19 History mirtazapine 45 mg tablet 45 mg PO HS tab 05/01/18 01/16/19 History nitroglycerin 0.4 mg sublingual 0.4 mg SL DIRECTED PRN 05/01/18 01/16/19 History tablet oxycodone 5 mg capsule 5 mg PO Q4H PRN cap 05/01/18 01/16/19 History rosuvastatin 5 mg tablet 5 mg PO DAILY 05/01/18 01/16/19 History sodium fluoride 1.1 % dental cream 1 appln DT DAILY gm 05/01/18 01/16/19 History Lac-Hydrin Five 1 applic TOPICAL DAILY 11/28/18 01/16/19 History amoxicillin 2,000 mg PO DIRECTED PRN 11/28/18 01/16/19 History cranberry extract 200 mg PO DAILY 11/28/18 01/16/19 History levothyroxine 75 mcg PO DAILY 11/28/18 01/16/19 History melatonin 20 mg PO HS 11/28/18 01/16/19 History metoprolol succinate 25 mg PO DAILY 11/28/18 01/16/19 History prednisone 5 mg PO DAILY 11/28/18 01/16/19 History sulfamethoxazole-trimethoprim 1 tab PO Q12 #10 tab 11/30/18 01/16/19 Rx amlodipine [Norvasc] 2.5 mg PO DAILY 01/16/19 01/16/19 History Past Med/Surg History Medical History Aftercare following right hip joint replacement surgery (Chronic) Angina pectoris, unspecified (Chronic) Cardiac catheterization as the cause of abnormal reaction of the patient, or of later complication, without mention of misadventure at the time of the procedure (Chronic) DVT (deep venous thrombosis) (Chronic) Hx of skin cancer, basal cell (Chronic) Hx of squamous cell carcinoma (Chronic) Left bundle branch block (Chronic) PVD (peripheral vascular disease) (Chronic) Pacemaker (Chronic) Peripheral neuropathy (Chronic) Renal disease (Chronic) Sinus tachycardia (Chronic) Wears dentures (Chronic) Cataracts, bilateral (Resolved) Surgical History H/O aortic aneurysm repair (Chronic) History of cataract removal with insertion of prosthetic lens (Chronic) H/O heart artery stent (Resolved) Family History Other Heart disease Social History Preferred Language: Belarusian Communication Ability: Effective Crocheter Hand Required: No Beliefs That Will Affect Care: None marital status: Current Living Situation: Spouse current occupation: retired Feels Safe at Home: Yes Safety Concerns: Feels Safe At This Time Smoking Status: Never smoker Do You Dip or Chew Tobacco: No Hx Alcohol Use: Yes Alcohol type: wine Hx Substance Use: No Review of Systems Review of Systems: All systems reviewed & are unremarkable except as noted in HPI & below Physical Exam Physical Exam: Physical Exam: Vitals signs as noted above General Appearance:Thin, frail, no apparent distress Head: normocephalic, Atraumatic Eyes: normal inspection, EOMI Neck: supple, Trachea midline Respiratory/Chest: Normal breath sounds, CTA, +pacemaker on left side of chest Cardiovascular: S1, S2, + murmur, +Tachycardia Abdomen/GI:Soft, Non tender, Bowel sounds present, no guarding or rigidity Extremities/Musculoskelatal:normal inspection, 1+ B/L LE edema, L LE healing wound Neurologic/Psych:AAOX3, grossly no focal neurological deficits Skin: normal color, warm Results & Data Vital Signs (Past 12 Hours) Vital Signs Temp Pulse Pulse Resp BP BP Pulse Ox 01/16/19 16:15 103 H 18 107/66 97 01/16/19 15:30 105 H 16 112/74 98 01/16/19 14:41 127 H 16 95 01/16/19 13:23 36.8 C 104 H 16 145/76 H 95 01/16/19 13:22 36.8 C 127 H 16 145/76 H 95 Laboratory Results Short CBC 01/16/19 Range/Units 14:55 WBC 10.20 (4.8-10.8) K/uL Hgb 13.6 (12.0-16.0) g/dL Hct 40.7 (37-47) % Plt Count 142 (130-400) K/uL BMP 01/16/19 01/16/19 14:55 16:26 Sodium 136 Potassium 4.0 Chloride 104 Carbon Dioxide 24 BUN 27 H Creatinine 1.89 H Glucose 84 Calcium 8.5 Cardiac Enzymes 01/16/19 Range/Units 14:55 Troponin I < 0.015 (0-0.045) ng/ml Liver Function 01/16/19 01/16/19 Range/Units 14:55 16:26 Total Bilirubin 0.6 (0.2-1) mg/dl AST 14 L (15-37) U/L ALT 20 (12-78) U/L Alkaline Phosphatase 92 (45-117) U/L Albumin 3.1 L (3.4-5.0) gm/dl Urine 01/16/19 Range/Units 17:25 Urine Color Yellow Urine Appearance Clear (Clear) Urine pH 7.5 (4.5-7.5) Ur Specific [place] 1.011 (1.000-1.030) Urine Protein Negative (Negative) Urine Glucose (UA) Negative (Negative) Diagnostic Findings CT ABD: 1. Chronic pleural thickening left lung base. 2. Stable hiatal hernia. 3. Gallstones. 4. Unchanged appearance of aorto by iliac stent placement. 5. Moderate increase in fecal load throughout the bulk of the colon consistent with a component of fecal stasis. 5. Chronic colonic diverticulosis with no evidence for acute diverticulitis. CXR: No acute process. Chronic and postoperative change. ECG Additional Comments: EKG:Sinus Tachycardia, Non specific ST-T wave changes, QTC:444 on my interpretation
[2019-01-16] MEDS: METOPROLOL SUCC 25MG EXT REL TAB PO SCH (19:30)
[2019-01-16] MEDS: predniSONE 5 MG TAB PO SCH (19:30)
[2019-01-16] MEDS ORDERED: TRAMADOL HCL 50 MG TABLET PO PRN (19:56)
[2019-01-16] MEDS ORDERED: NITROGLYCERIN SL 0.4 MG/TAB TAB SL PRN (19:56)
[2019-01-16] MEDS ORDERED: ACETAMINOPHEN 325 MG TAB PO PRN (19:56)
[2019-01-16] MEDS ORDERED: CONSULT PHARMACY STA (19:56)
[2019-01-16] MEDS: SODIUM CHLORIDE 0.9% 1000ML 1,000 ML IV SCH (20:15)
[2019-01-16] MEDS ORDERED: NON-FORMULARY MEDICATION (Melatonin 20 MG) PO SCH (21:00)
[2019-01-16] MEDS ORDERED: LORazepam 0.5 MG TAB PO STA (21:06)
[2019-01-16] MEDS: POLYETHYLENE (MIRALAX) 17 GM PACK PO SCH (21:26)
[2019-01-16] MEDS: HEPARIN SOD 5,000 UNIT/0.5 ML VIAL SQ SCH (21:27)
[2019-01-16] MEDS: DOCUSATE SODIUM/SENNA 50/8.6MG TAB PO SCH (21:27)
[2019-01-16] MEDS: MIRTAZAPINE SOLTAB 15 MG PO SCH (21:27)
[2019-01-16] MEDS: PIPERACILLIN/TAZOBACTAM 3.375 GM in DEXTROSE 5% 100 ML IV SCH (21:49)
[2019-01-17] MEDS: SODIUM CHLORIDE 0.9% 1000ML 1,000 ML IV SCH (04:57)
[2019-01-17] MEDS: LEVOTHYROXINE SODIUM 75 MCG TABLET PO SCH (04:58)
[2019-01-17 06:18] LABS: Basophils # (auto) 0.02 K/uL (0-0.2); Basophils % (auto) 0.3 %; Hemoglobin 11.7 g/dL (12.0-16.0); Immature Granulocytes # (auto) 0.01 K/uL (0.00-0.02); Immature Granulocytes % (auto) 0.1 %; Lymphocytes # (auto) 0.49 K/uL (1.2-3.4); Lymphocytes % (auto) 7.2 %; Mean Corpuscular Hgb Conc 31.6 g/dL (32-36); Mean Platelet Volume 11.1 fL (7.4-10.4); Monocytes # (auto) 0.79 K/uL (0.11-0.59); Monocytes % (auto) 11.6 %; Neutrophils # (auto) 5.52 K/uL (1.4-6.5); Neutrophils % (auto) 80.8 %; Platelet Count 121 K/uL (130-400); RDW Coefficient of Variation 15.7 % (11.5-14.5); RDW Standard Deviation 51.7 fL (36.4-46.3); Red Blood Count 4.11 M/uL (4.2-5.4); White Blood Count 6.83 K/uL (4.8-10.8)
[2019-01-17 06:44] LABS: Alanine Aminotransferase 15 U/L (12-78); Albumin Level 2.4 gm/dl (3.4-5.0); Aspartate Aminotransferase 14 U/L (15-37); BUN Creatinine Ratio 13.4 (10-20); Blood Urea Nitrogen 22 mg/dl (7-18); Calcium 7.7 mg/dl (8.5-10.1); Carbon Dioxide 22 mmol/L (21-32); Chloride 115 mmol/L (98-107); Creatinine Clr Calc Pharmacy 22.4 ml/min; Est GFR (African American) 33.9; Est GFR (Non-African American) 29.2; Glucose 85 mg/dl (70-99)
[2019-01-17 06:54] LABS: Albumin Globulin Ratio 0.8 (0.9-2); Alkaline Phosphatase 71 U/L (45-117); Bilirubin,Total 0.6 mg/dl (0.2-1); Globulin 3.2 gm/dl (2.5-4.0); Total Protein 5.6 gm/dl (6.4-8.2); Troponin I < 0.015 ng/ml (0-0.045)
[2019-01-17 07:08] LABS: Sodium 143 mmol/L (136-145)
[2019-01-17] MEDS: AMMONIUM LACTATE 12% LOTION 225 GM BTL EXT SCH (07:55)
[2019-01-17] MEDS: ASPIRIN 81 MG ECTAB PO SCH (07:55)
[2019-01-17] MEDS: LORATADINE 10 MG TAB PO SCH (07:55)
[2019-01-17] MEDS: PANTOprazole 40 MG TAB PO SCH (07:55)
[2019-01-17] MEDS: FLUTICASONE PROPIONATE NA SPR 16 GM BTL NAE SCH (07:55)
[2019-01-17] MEDS: CLOPIDOGREL BISULFATE 75 MG TAB PO SCH (07:55)
[2019-01-17] MEDS: ROSUVASTATIN CALCIUM 5 MG TAB PO SCH (07:55)
[2019-01-17] MEDS: DOCUSATE SODIUM/SENNA 50/8.6MG TAB PO SCH ×2 (07:56→20:29)
[2019-01-17] MEDS: HEPARIN SOD 5,000 UNIT/0.5 ML VIAL SQ SCH ×2 (07:56→20:28)
[2019-01-17] MEDS ORDERED: FLUORIDE DT SCH (09:00)
[2019-01-17] MEDS ORDERED: CRANBERRY EXTRACT 200 MG PO SCH (09:00)
[2019-01-17] MEDS: METOPROLOL SUCC 25MG EXT REL TAB PO SCH (09:03)
[2019-01-17] MEDS: predniSONE 5 MG TAB PO SCH (09:03)
[2019-01-17] MEDS: POLYETHYLENE (MIRALAX) 17 GM PACK PO SCH (09:03)
--- NOTE | 2019-01-17 09:41 | Ultrasound Report ---
US duplex aorta/iliacs CLINICAL HISTORY: 83 years-old Female presenting with Abdominal pain. TECHNIQUE: Real-time grayscale and color and spectral Doppler ultrasound imaging of the abdominal aor ta and iliac arteries was performed. COMPARISON: Noncontrast CT of the abdomen and pelvis from 01/16/2019. FINDINGS: Proximal aorta: Not visualized due to overlying bowel gas. Mid aorta: Atherosclerosis. Mild ectasia. Transverse dimension 2.4 x 2.3 cm. Peak systolic velocity ( PSV) 84 cm/s. Distal aorta: An aortobiiliac stent graft is in place across the distal aortic aneurysm. Transverse d imension 2.7 x 2.5 cm. There is flow within the aortic portion of the graft as well as in the bilater al iliac modular portions. PSV 134 cm/s and 225 cm/s within the iliac portions. The elevation of [place] may be due to tortuosity as no focal stenosis is appreciated allowing for image quality. Exclude d portion of the distal aorta with expected thrombus. Right iliac artery: Patent graft and patent vessel distal to graft. Transverse dimension 1.8 x 1.5 cm . PSV 120 cm/s. Left iliac artery: Patent graft and patent vessel distal graft. Transverse dimension 1.6 x 1.6 cm. PS V 134 cm/s. Other: Inferior vena cava with wall thickening. The reported IVC filter is not visualized and may not be included within the [id number]. IMPRESSION: 1. Aortobiiliac stent graft in place. The graft is patent. Apparent elevated velocity in one of the proximal iliac modular portions of the stent graft may be due to tortuosity as no focal stenosis is a ppreciated. 2. Abdominal aortic aneurysm measuring 2.7 cm and the distal aorta. Excluded portion of the aneurysm sac without evidence of endoleak. 3. Wall thickening of the IVC may relate to chronic thrombus or the presence of a reported IVC filte r. Electronically signed by: Victor Manuel Up M.D. 01/17/2019 9:40 AM
[2019-01-17] MEDS: PIPERACILLIN/TAZOBACTAM 3.375 GM in DEXTROSE 5% 100 ML IV SCH (10:47)
[2019-01-17] MEDS ORDERED: VANCOMYCIN HCL 1,000 MG in SODIUM CHLORIDE 0.9% 250 ML IV SCH (12:30)
--- NOTE | 2019-01-17 14:18 | Hospitalist Progress Note ---
Date of Service January 17, 2019 Assessment & Plan (1) Abdominal pain: resolved after large BM today. Avoid Imodium. Cont with Bactrim for empiric treatment of presumed UTI (2) UTI (urinary tract infection): Bactrim -renally dosed. Recent E coli causing sepsis which hospitalized her two months ago. (3) CKD (chronic kidney disease), stage IV: at baseline. (4) Mitral and aortic valve regurgitation: (5) S/P TAVR (transcatheter aortic valve replacement): (6) IBS (irritable bowel syndrome): stop using imodium. Work with PCP or GI specialist as outpatient on a better temporizing measure. (7) H/O methicillin resistant Staphylococcus aureus: nasal MRSA + (8) DVT prophylaxis: Heparin DNR/DNI Dispo-likely to home in am pending blood cultures Alicia Ramos DO [facility] Hospitalist Subjective This patient presented to the ER at the request of her outpatient provider for some lingering lower abdominal and back pain persistent despite starting Bactrim empirically for a UTI. She was found to have fecal stasis and admits to using Imodium approx twice weekly for loose stools as an IBS symptom. She has since taken some laxative and stool softeners and feels a resolution of her abdominal and back pain. Although she denies dysuria or urinary urgency, she does report her classic teeth sensation that travels into her pelvis causing a tingling feeling. This is her hallmark symptom that she is having a UTI. Therefore, as she has clinically improved and urine culture is negative to date, will cont a short course of Bactrim for now. She is eating, ambulating and mentating at baseline. ROS is otherwise negative. Review of Systems Review of Systems: All systems reviewed & are unremarkable except as noted in HPI & below Physical Exam Physical Exam: CONSTITUTIONAL: WNWD, vitals as above, generally well- appearing, elderly EYES: normal conjuctivae, no scleral icterus ENT: mucous membranes moist RESPIRATORY: clear to auscultation bilaterally, no crackles, rales or wheezes, normal respiratory effort CARDIOVASCULAR: regular rate and rhythm, S1 and 2 heard without murmurs, gallops or rubs, no JVD, no peripheral edema GASTROINTESTINAL: normal bowel sounds, soft, nontender, nondistended. MUSCULOSKELETAL: strength 5/5 throughout, head is normocephalic and atraumatic SKIN: warm and dry NEUROLOGIC: no gross focal deficits. PSYCHIATRIC: alert cooperative and oriented to person, place and time. Results & Data Vital Signs (Past 12 Hours) Vital Signs Temp Pulse Pulse Resp BP Pulse Ox 01/17/19 09:00 89 01/17/19 07:25 36.8 C 86 17 135/75 94 01/17/19 04:00 36.7 C 84 18 121/67 95 Laboratory Results Short CBC 01/17/19 Range/Units 05:39 WBC 6.83 (4.8-10.8) K/uL Hgb 11.7 L (12.0-16.0) g/dL Hct 37.0 (37-47) % Plt Count 121 L (130-400) K/uL BMP 01/17/19 05:39 Sodium 143 D Potassium 4.0 Chloride 115 H Carbon Dioxide 22 BUN 22 H Creatinine 1.63 H Glucose 85 Calcium 7.7 L Cardiac Enzymes 01/16/19 01/17/19 Range/Units 23:20 05:39 Troponin I < 0.015 < 0.015 (0-0.045) ng/ml Liver Function 01/17/19 Range/Units 05:39 Total Bilirubin 0.6 (0.2-1) mg/dl AST 14 L (15-37) U/L ALT 15 (12-78) U/L Alkaline Phosphatase 71 (45-117) U/L Albumin 2.4 L (3.4-5.0) gm/dl Medications Administered Current Inpatient Medications Acetaminophen (Tylenol) 650 mg PO Q4H PRN PRN Reason: Pain or Fever Stop: 02/15/19 19:55 Aspirin (Ecotrin Ectab) 81 mg PO DAILY [facility] Stop: 02/16/19 08:59 Last Admin: 01/17/19 07:55 Dose: 81 mg Documented by: Clopidogrel Bisulfate (Plavix) 75 mg PO DAILY [facility] Stop: 02/16/19 08:59 Last Admin: 01/17/19 07:55 Dose: 75 mg Documented by: Fluticasone Propionate (Flonase) 2 sprays JIA DAILY [facility] Stop: 02/16/19 08:59 Last Admin: 01/17/19 07:55 Dose: 2 sprays Documented by: Heparin Sodium (Porcine) (Heparin Sodium (Porcine)) 5,000 units SQ Q12 [facility] Stop: 02/15/19 20:59 Last Admin: 01/17/19 20:28 Dose: 5,000 units Documented by: Lactic Acid (Amlactin) 1 gm EXT DAILY [facility] Stop: 02/16/19 08:59 Last Admin: 01/17/19 07:55 Dose: 1 gm Documented by: Levothyroxine Sodium (Synthroid) 75 mcg PO DAILYBB [facility] Stop: 02/16/19 06:29 Last Admin: 01/17/19 04:58 Dose: 75 mcg Documented by: Loratadine (Claritin) 10 mg PO DAILY [facility] Stop: 02/16/19 08:59 Last Admin: 01/17/19 07:55 Dose: 10 mg Documented by: Metoprolol Succinate (Toprol Xl) 25 mg PO DAILY [facility] Stop: 02/15/19 18:44 Last Admin: 01/17/19 09:03 Dose: 25 mg Documented by: Mirtazapine (Remeron Solutab) 45 mg PO HS [facility] Stop: 02/15/19 20:59 Last Admin: 01/17/19 20:28 Dose: 45 mg Documented by: Nitroglycerin (Nitrostat) 0.4 mg SL UD PRN PRN Reason: chest pain Stop: 02/15/19 19:55 Pantoprazole Sodium (Protonix) 40 mg PO QAM [facility] Stop: 02/16/19 08:59 Last Admin: 01/17/19 07:55 Dose: 40 mg Documented by: Polyethylene Glycol (Miralax Powder Packet) 17 gm PO DAILY [facility] Stop: 02/15/19 19:55 Last Admin: 01/17/19 09:03 Dose: 17 gm Documented by: Prednisone (Prednisone) 5 mg PO DAILY [facility] Stop: 02/15/19 18:44 Last Admin: 01/17/19 09:03 Dose: 5 mg Documented by: Rosuvastatin Calcium (Crestor) 5 mg PO DAILY [facility] Stop: 02/16/19 08:59 Last Admin: 01/17/19 07:55 Dose: 5 mg Documented by: Senna/Docusate Sodium (Senokot S) 1 tab PO BID [facility] Stop: 02/15/19 20:59 Last Admin: 01/17/19 20:29 Dose: 1 tab Documented by: Tramadol HCl (Ultram) 50 mg PO Q4H PRN PRN Reason: Pain Stop: 02/15/19 19:55 Trimethoprim/Sulfamethoxazole (Septra 400/80mg Tab) 1 tab PO BIDM [facility] Stop: 01/22/19 08:01 Last Admin: 01/17/19 18:06 Dose: 1 tab Documented by: (1) UTI (urinary tract infection) Hematuria presence: without hematuria Urinary tract infection type: acute cystitis Qualified Code(s): N30.00 - Acute cystitis without hematuria
[2019-01-17] MEDS: SULFA/TRIMETH 400/80MG TAB PO SCH (18:06)
[2019-01-17] MEDS: MIRTAZAPINE SOLTAB 15 MG PO SCH (20:28)
[2019-01-17] MEDS ORDERED: LORazepam 0.5 MG TAB PO STA (22:16)
[2019-01-18] MEDS ORDERED: OXYCODONE HCL IR 5 MG TAB (IMMEDIATE RELEASE) PO PRN (03:03)
[2019-01-18] MEDS: LEVOTHYROXINE SODIUM 75 MCG TABLET PO SCH (04:51)
[2019-01-18 07:50] LABS: Hematocrit (blood only) 39.2 % (37-47); Hemoglobin 12.5 g/dL (12.0-16.0); Mean Corpuscular Hgb Conc 31.9 g/dL (32-36); Mean Corpuscular Volume 89.5 fL (80-100); Mean Platelet Volume 10.5 fL (7.4-10.4); Platelet Count 120 K/uL (130-400); RDW Coefficient of Variation 15.4 % (11.5-14.5); RDW Standard Deviation 50.7 fL (36.4-46.3); Red Blood Count 4.38 M/uL (4.2-5.4); White Blood Count 5.98 K/uL (4.8-10.8)
[2019-01-18 08:18] LABS: BUN Creatinine Ratio 14.7 (10-20); Calcium 8.8 mg/dl (8.5-10.1); Creatinine Clr Calc Pharmacy 23.4 ml/min; Est GFR (African American) 35.7; Est GFR (Non-African American) 30.8; Potassium 3.8 mmol/L (3.5-5.1)
[2019-01-18] MEDS: METOPROLOL SUCC 25MG EXT REL TAB PO SCH (08:41)
[2019-01-18] MEDS: CLOPIDOGREL BISULFATE 75 MG TAB PO SCH (08:41)
[2019-01-18] MEDS: LORATADINE 10 MG TAB PO SCH (08:41)
[2019-01-18] MEDS: SULFA/TRIMETH 400/80MG TAB PO SCH (08:42)
[2019-01-18] MEDS: ROSUVASTATIN CALCIUM 5 MG TAB PO SCH (08:42)
[2019-01-18] MEDS: predniSONE 5 MG TAB PO SCH (08:42)
[2019-01-18] MEDS: ASPIRIN 81 MG ECTAB PO SCH (08:42)
[2019-01-18] MEDS: PANTOprazole 40 MG TAB PO SCH (08:42)
[2019-01-18] MEDS: POLYETHYLENE (MIRALAX) 17 GM PACK PO SCH (08:42)
[2019-01-18] MEDS: FLUTICASONE PROPIONATE NA SPR 16 GM BTL NAE SCH (08:43)
[2019-01-18] MEDS: DOCUSATE SODIUM/SENNA 50/8.6MG TAB PO SCH (08:43)
[2019-01-18] MEDS: AMMONIUM LACTATE 12% LOTION 225 GM BTL EXT SCH (08:44)
[2019-01-18] MEDS: HEPARIN SOD 5,000 UNIT/0.5 ML VIAL SQ SCH (09:10)
--- NOTE | 2019-01-18 10:29 | Hospitalist Progress Note ---
Date of Service January 18, 2019 Assessment & Plan (1) Abdominal pain: resolved after large BM today. Avoid Imodium. Cont with Bactrim for empiric treatment of presumed UTI (2) UTI (urinary tract infection): Bactrim -renally dosed. Recent E coli causing sepsis which hospitalized her two months ago. (3) CKD (chronic kidney disease), stage IV: at baseline. (4) Mitral and aortic valve regurgitation: (5) S/P TAVR (transcatheter aortic valve replacement): (6) IBS (irritable bowel syndrome): stop using imodium. Work with PCP or GI specialist as outpatient on a better temporizing measure. (7) H/O methicillin resistant Staphylococcus aureus: nasal MRSA + (8) DVT prophylaxis: Heparin DNR/DNI Dispo-likely to home in am pending blood cultures DO [facility] Hospital[facility] Results & Data Vital Signs (Past 12 Hours) Vital Signs Temp Pulse Resp BP Pulse Ox 01/18/19 07:45 36.8 C 97 H 20 152/79 H 93 01/17/19 23:52 36.9 C 77 18 155/93 H 96 Laboratory Results Short CBC 01/18/19 Range/Units 07:38 WBC 5.98 (4.8-10.8) K/uL Hgb 12.5 (12.0-16.0) g/dL Hct 39.2 (37-47) % Plt Count 120 L (130-400) K/uL BMP 01/18/19 07:38 Sodium 143 Potassium 3.8 Chloride 114 H Carbon Dioxide 21 BUN 23 H Creatinine 1.56 H Glucose 77 Calcium 8.8 Medications Administered Current Inpatient Medications Acetaminophen (Tylenol) 650 mg PO Q4H PRN PRN Reason: Pain or Fever Stop: 02/15/19 19:55 Aspirin (Ecotrin Ectab) 81 mg PO DAILY [facility] Stop: 02/16/19 08:59 Last Admin: 01/18/19 08:42 Dose: 81 mg Documented by: Clopidogrel Bisulfate (Plavix) 75 mg PO DAILY [facility] Stop: 02/16/19 08:59 Last Admin: 01/18/19 08:41 Dose: 75 mg Documented by: Fluticasone Propionate (Flonase) 2 sprays JIA DAILY [facility] Stop: 02/16/19 08:59 Last Admin: 01/18/19 08:43 Dose: 2 sprays Documented by: Heparin Sodium (Porcine) (Heparin Sodium (Porcine)) 5,000 units SQ Q12 [facility] Stop: 02/15/19 20:59 Last Admin: 01/18/19 09:10 Dose: Not Given Documented by: Lactic Acid (Amlactin) 1 gm EXT DAILY [facility] Stop: 02/16/19 08:59 Last Admin: 01/18/19 08:44 Dose: 1 gm Documented by: Levothyroxine Sodium (Synthroid) 75 mcg PO DAILYBB [facility] Stop: 02/16/19 06:29 Last Admin: 01/18/19 04:51 Dose: 75 mcg Documented by: Loratadine (Claritin) 10 mg PO DAILY [facility] Stop: 02/16/19 08:59 Last Admin: 01/18/19 08:41 Dose: 10 mg Documented by: Metoprolol Succinate (Toprol Xl) 25 mg PO DAILY [facility] Stop: 02/15/19 18:44 Last Admin: 01/18/19 08:41 Dose: 25 mg Documented by: Mirtazapine (Remeron Solutab) 45 mg PO HS [facility] Stop: 02/15/19 20:59 Last Admin: 01/17/19 20:28 Dose: 45 mg Documented by: Nitroglycerin (Nitrostat) 0.4 mg SL UD PRN PRN Reason: chest pain Stop: 02/15/19 19:55 Oxycodone HCl (Roxicodone Immediate Rel) 5 mg PO Q4H PRN PRN Reason: pain Last Admin: 01/18/19 04:51 Dose: 5 mg Documented by: Pantoprazole Sodium (Protonix) 40 mg PO QAM [facility] Stop: 02/16/19 08:59 Last Admin: 01/18/19 08:42 Dose: 40 mg Documented by: Polyethylene Glycol (Miralax Powder Packet) 17 gm PO DAILY [facility] Stop: 02/15/19 19:55 Last Admin: 01/18/19 08:42 Dose: 17 gm Documented by: Prednisone (Prednisone) 5 mg PO DAILY [facility] Stop: 02/15/19 18:44 Last Admin: 01/18/19 08:42 Dose: 5 mg Documented by: Rosuvastatin Calcium (Crestor) 5 mg PO DAILY [facility] Stop: 02/16/19 08:59 Last Admin: 01/18/19 08:42 Dose: 5 mg Documented by: Senna/Docusate Sodium (Senokot S) 1 tab PO BID [facility] Stop: 02/15/19 20:59 Last Admin: 01/18/19 08:43 Dose: 1 tab Documented by: Tramadol HCl (Ultram) 50 mg PO Q4H PRN PRN Reason: Pain Stop: 02/15/19 19:55 Last Admin: 01/17/19 23:37 Dose: 50 mg Documented by: Trimethoprim/Sulfamethoxazole (Septra 400/80mg Tab) 1 tab PO BIDM [facility] Stop: 01/22/19 08:01 Last Admin: 01/18/19 08:42 Dose: 1 tab Documented by: (1) UTI (urinary tract infection) Hematuria presence: without hematuria Urinary tract infection type: acute cystitis Qualified Code(s): N30.00 - Acute cystitis without hematuria
--- NOTE | 2019-01-18 14:13 | Discharge Summary ---
Date of Service January 18, 2019 Admission HPI Per Admitting Provider Patient is an 83-year-old female with history of CAD s/p stent, irritable bowel syndrome, fibromyalgia, dyslipidemia, hypothyroidism, hypertension, DVT, PE status post IVC filter--currently not on anticoagulation due to history of retroperitoneal bleeds, AAA S/P repair, LBBB, H/O Aortic Stenosis S/P TAVR, CKD IV, history of complete heart block status post pacemaker, H/O multiple E.coli UTIs and other problems presents with history of abdominal pain and fever. Patient reports the abdominal pain is like "Bad Ache" which is all across the abdomen, nonradiating, not associated with food intake, increases with movement, decreases with rest. Reports associated lower back pain. Currently patient denies any abdominal pain while in ED. She abdominal pain started yesterday. Denies any blood in stools. Patient called her PCP due to abdominal pain yesterday and was thought to have a urinary tract infection and was prescribed Bactrim which she took it for 2 days. Appetite is normal. Last bowel movement was yesterday. Patient was evaluated today at her PCPs office and was found to have fever of 101.8 F and so was sent to ED for further evaluation as per patient. Patient admits to not taking her medications today. She uses Imodium as needed for her irritable bowel. She follows with Dr. Irvin as outpatient. Denies any history of chest pain, SOB, dizziness, cough, nausea, vomiting, diarrhea, dysuria, hematuria, increased urinary frequency. Admission Exam Per Admitting Provider Physical Exam: Vitals signs as noted above General Appearance:Thin, frail, no apparent distress Head: normocephalic, Atraumatic Eyes: normal inspection, EOMI Neck: supple, Trachea midline Respiratory/Chest: Normal breath sounds, CTA, +pacemaker on left side of chest Cardiovascular: S1, S2, + murmur, +Tachycardia Abdomen/GI:Soft, Non tender, Bowel sounds present, no guarding or rigidity Extremities/Musculoskelatal:normal inspection, 1+ B/L LE edema, L LE healing wound Neurologic/Psych:AAOX3, grossly no focal neurological deficits Skin: normal color, warm Principal Diagnosis Constipation UTI Discharge Data Allergies Allergy/AdvReac Type Severity Reaction Status Date / Time Cipro Allergy Intermediate RASH Verified 04/19/18 05:27 ciprofloxacin Allergy Intermediate RASH Verified 01/16/19 15:22 metronidazole Allergy Intermediate RASH Verified 01/16/19 15:22 cefuroxime Allergy Unknown RASH Verified 01/16/19 15:22 nitrofurantoin Allergy Unknown UKN Verified 01/16/19 15:22 liothyronine AdvReac Mild RAPID Verified 01/16/19 15:22 HEART RATE Bisphosphonates AdvReac Intermediate GI UPSET Uncoded 01/16/19 15:22 Consultations 01/16/19 16:52 ED Decision to Admit Stat 01/16/19 19:56 Consult Case Management - Discharge Planning Routine Ordered Studies 01/16/19 14:26 CT abd pelvis wo con Stat 01/17/19 US duplex aorta/iliacs Urgent Hospital Course (1) Abdominal pain: (2) UTI (urinary tract infection): (3) CKD (chronic kidney disease), stage IV: (4) Mitral and aortic valve regurgitation: (5) S/P TAVR (transcatheter aortic valve replacement): (6) IBS (irritable bowel syndrome): (7) H/O methicillin resistant Staphylococcus aureus: 83-year-old female presented with lower abdominal pain associated with lower back pain, fever and low blood pressure. She has a history of irritable bowel syndrome and a history of multiple UTIs. She has a characteristic symptom when she has UTIs that include a strange sensation in her teeth. She reports having this sensation recently. She had taken Bactrim as outpatient 2 days prior to arrival for presumed UTI. She was admitted to the hospitalist service and a CT of the abdomen was performed revealing a moderate increase in fecal load throughout with a component of fecal stasis. She regularly takes Imodium for irritable bowel syndrome and this was held. A bowel regimen was started for constipation. Lactate levels were notably normal. Although her urinalysis was not suggestive of infection antibiotics were continued for presumed UTI in the setting of her known associated teeth symptom. This is also in the context that a urinary tract secondary to E. coli caused a sepsis syndrome which hospital ized her 2 months prior. The following day her abdominal pain and back discomfort resolved after a large bowel movement. Bactrim was continued and she was discharged in stable condition with close primary care follow-up recommended. Of note physical exam at time of discharge revealed an ambulatory woman who was mentating at baseline and tolerating p.o. Physical exam was unremarkable. Regarding her IBS and persistent Imodium use, it was recommended she work with her primary care doctor or a GI specialist on a better temporizing measure to avoid this kind of constipation issue in the future. Blood cultures were preliminarily negative at discharge. Total Time Total Time Spent Total Time Spent (In Minutes): 60 Total Time Includes: Examination of the Patient, Discharge Planning, Medication Reconciliation and Communication With Other Providers Discharge Plan Discharge Items Patient Disposition: Home - Self-Care Reason For Visit: ABDOMINAL PAIN Discharge Diagnosis: Constipation UTI Condition: Good Discharge Goals: Increase independence Activity: Resume your previous activity Non-emergency contact: Primary Care Provider Call non-emergency contact if: you have any medication questions, your symptoms worsen, your pain is concerning for you and you have a fever Follow-up/Referrals: Vandana Krishna MD [Primary Care Provider] - Diet: Heart Healthy Addtl Provider Instructions: Please take all medications as instructed on discharge list below. Please work with your primary care physician to find an alternative to Imodium for your recurrent soft bowel movements. Consider outpatient Gastroenterology consult. You have the following appointment with primary care: 01/23/2019 10:30 AM Mylene Martino, Family Practice [facility] PENDING STUDIES: preliminary blood cultures negative, final reading pending at time of discharge. It was a pleasure taking care of you! Please call if you have any questions or problems. You can reach a [facility] hospitalist on duty at [facility] 24 hours a day by calling [phone]. Take care of yourself. Alicia Ramos, DO [facility] Hospitalist Prescriptions: Continued aspirin [Aspir-81] 81 mg tablet,delayed release (DR/EC) 81 mg PO DAILY RF: 0 beclomethasone dipropionate 42 mcg/actuation aerosol 1 spray Intranasal DAILY RF: 0 cholecalciferol (vitamin D3) 1,000 unit capsule 1,000 units PO DAILY RF: 0 clopidogrel [Plavix] 75 mg tablet 75 mg PO DAILY RF: 0 lansoprazole [Prevacid] 15 mg capsule,delayed release(DR/EC) 15 mg PO QAM RF: 0 loratadine [Claritin] 10 mg tablet 10 mg PO DAILY RF: 0 mirtazapine 45 mg tablet 45 mg PO HS RF: 0 nitroglycerin [Nitrostat] 0.4 mg tablet, sublingual 0.4 mg SL DIRECTED PRN (Reason: chest pain) RF: 0 oxycodone 5 mg capsule 5 mg PO Q4H PRN (Reason: pain) RF: 0 rosuvastatin [Crestor] 5 mg tablet 5 mg PO DAILY RF: 0 fluoride (sodium) 1.1 % cream 1 appln DT DAILY RF: 0 amlodipine [Norvasc] 5 mg tablet 2.5 mg PO DAILY RF: 0 amoxicillin 500 mg Capsule 2,000 mg PO DIRECTED PRN (Reason: PRIOR TO DENTAL APPOINTMENTS) RF: 0 prednisone 5 mg Tablet 5 mg PO DAILY RF: 0 metoprolol succinate 25 mg Tablet Extended Release 24 Hr 25 mg PO DAILY RF: 0 cranberry extract 200 mg Capsule 200 mg PO DAILY RF: 0 melatonin 10 mg Tablet 20 mg PO HS RF: 0 Lac-Hydrin Five 5 % Lotion 1 applic TOPICAL DAILY RF: 0 levothyroxine 75 mcg Tablet 75 mcg PO DAILY RF: 0 Discontinued loperamide [Imodium A-D] 2 mg capsule 2 mg PO QID PRN (Reason: Diarrhea) RF: 0 sulfamethoxazole-trimethoprim 400-80 mg Tablet 1 tab PO Q12 Qty: 10 RF: 0 Stand-Alone Forms: [facility] Discharge Orders: Discharge Order (Routine); Ordered 01/18/19 Ordered By: Alicia Ramos Admission Data Admit Date/Time: 01/16/19 18:44 Attending Provider: Alicia Ramos Admit Provider: Rogers Valentino Primary Care Provider: Vandana Krishna Service: Telemetry Medical Other Interventions: Discharge Summary Assessment (RN) Last Done: 01/18/19 14:21 DC Date/Time DO NOT enter until pt leaves facility: 01/18/19 15:29
--- NOTE | 2019-01-22 11:46 | Coding Query ---
To promote full compliance with coding requirements relating to patient care, provider participation is requested in all cases of specialty transformer assembler uncertainty. Please assist us with the question(s) below: Coding Question: Per the H&P and ED notes, the patient was admitted for a UTI and to rule-out sepsis without further documentation indicating sepsis. Please indicate if it is still a possible diagnosis or ruled out. Thank you so much for your help! Have a great day! SEPSIS ( ) Diagnosed and POA ( ) Diagnosed and not POA ( x ) Ruled out ( ) Other (please specify) MTDD
== END 2019-01-18 15:29 | disposition home or self-care (01) | DRG 690 ==
LOC: ED 13:19 → SUATTDRO 18:44 → 2N 18:44

== ENCOUNTER 2020-01-09 18:40 | Observation (INO) ==
[2020-01-09] MEDS ORDERED: OXYMETAZOLINE 0.05% 30 ML BTL ONE (18:49)
[2020-01-09] MEDS ORDERED: LIDOCAINE 4% INH SOLN 4 ML BTL NAE ONE (18:49)
[2020-01-09] MEDS ORDERED: TXA 10% Non-IV Routes 100 MG/ML VIAL TOP ONE (18:49)
--- NOTE | 2020-01-09 19:15 | Emergency Department Note ---
History of Present Illness General Chief complaint: Nose Bleed (Minor) Stated complaint: NOSEBLEED Time Seen by Provider: 01/09/20 18:48 Source: patient, family, RN notes reviewed and old records reviewed Mode of arrival: ambulatory Limitations: no limitations History of Present Illness Provider complaint: epistaxis Onset (ago): hour(s) greater than 10 (12) This is an 84-year-old female who presents the emergency department complaining of nosebleed that is been ongoing since 7 AM this morning. The patient is on aspirin as well as Plavix. She has been trying tissues with no success in getting the bleeding stopped. She feels like the blood is running down the back of her throat. Home Medications Home Medications Medication Instructions Recorded Confirmed Type aspirin 81 mg tablet,delayed 81 mg PO DAILY 05/01/18 01/09/20 History release cholecalciferol (vitamin D3) 25 1,000 units PO DAILY 05/01/18 01/09/20 History mcg (1,000 unit) capsule clopidogrel 75 mg tablet 75 mg PO DAILY 05/01/18 01/09/20 History fluoride (sodium) 1.1 % dental 1 appln DT DAILY gm 05/01/18 01/09/20 History cream lansoprazole 15 mg capsule,delayed 15 mg PO QAM cap 05/01/18 01/09/20 History release mirtazapine 45 mg tablet 45 mg PO HS tab 05/01/18 01/09/20 History nitroglycerin 0.4 mg sublingual 0.4 mg SL DIRECTED PRN 05/01/18 01/09/20 History tablet oxycodone 5 mg capsule 5 mg PO DAILY PRN cap 05/01/18 01/09/20 History rosuvastatin 5 mg tablet 5 mg PO DAILY 05/01/18 01/09/20 History Lac-Hydrin Five 1 applic TOPICAL DAILY 11/28/18 01/09/20 History amoxicillin 2,000 mg PO DIRECTED PRN 11/28/18 01/09/20 History cranberry extract 200 mg PO DAILY 11/28/18 01/09/20 History melatonin 20 mg PO HS 11/28/18 01/09/20 History metoprolol succinate 25 mg PO DAILY 11/28/18 01/09/20 History prednisone 5 mg PO DAILY 11/28/18 01/09/20 History amlodipine [Norvasc] 2.5 mg PO DAILY 01/16/19 01/09/20 History cetirizine 10 mg PO DAILY 01/09/20 01/09/20 History fluticasone propionate [Flonase 2 spray INTRANASAL DAILY PRN 01/09/20 01/09/20 History Allergy Relief] levothyroxine 50 mcg PO DAILY 01/09/20 01/09/20 History tramadol 50 mg PO Q8H PRN 01/09/20 01/09/20 History Allergies Allergy/AdvReac Type Severity Reaction Status Date / Time Cipro Allergy Intermediate RASH Verified 04/19/18 05:27 ciprofloxacin Allergy Intermediate RASH Verified 01/09/20 19:52 metronidazole Allergy Intermediate RASH Verified 01/09/20 19:52 cefuroxime Allergy Unknown RASH Verified 01/09/20 19:52 nitrofurantoin Allergy Unknown UKN Verified 01/09/20 19:52 alendronate sodium AdvReac Intermediate Gastrointestinal Verified 01/09/20 22:55 [From Fosamax] Upset liothyronine AdvReac Mild RAPID Verified 01/09/20 19:52 HEART RATE Past Med/Surg History Medical History Aftercare following right hip joint replacement surgery (Chronic) Angina pectoris, unspecified (Chronic) Cardiac catheterization as the cause of abnormal reaction of the patient, or of later complication, without mention of misadventure at the time of the procedure (Chronic) Cataracts, bilateral (Resolved) DVT (deep venous thrombosis) (Chronic) Hx of skin cancer, basal cell (Chronic) Hx of squamous cell carcinoma (Chronic) Left bundle branch block (Chronic) Pacemaker (Chronic) Peripheral neuropathy (Chronic) PVD (peripheral vascular disease) (Chronic) Renal disease (Chronic) Sinus tachycardia (Chronic) Wears dentures (Chronic) Surgical History H/O aortic aneurysm repair (Chronic) H/O heart artery stent (Resolved) History of cataract removal with insertion of prosthetic lens (Chronic) Family History Other Heart disease Social History Preferred Language: Lithuanian Communication Ability: Effective Biology Specialist Required: No Beliefs That Will Affect Care: None marital status: Current Living Situation: Spouse current occupation: retired Other Information That Helps Us Care for You: No Feels Safe at Home: Yes Safety Concerns: Feels Safe At This Time Smoking Status: Never smoker Hx Alcohol Use: Yes Alcohol type: wine Hx Substance Use: No Review of Systems A total of 10 systems reviewed and were otherwise negative Physical Exam Vital Signs Vital Signs - 24 hr 01/09/20 18:42 01/09/20 21:22 Temperature 36.8 C Temperature Source Oral Pulse Rate 89 Pulse Rate [Apical] 72 Respiratory Rate 18 18 Blood Pressure 183/95 H Blood Pressure [Right Arm] 183/93 H Blood Pressure Mean 124 Blood Pressure Mean [Right Arm] 123 Pulse Oximetry 96 100 Oxygen Delivery Method Room Air Room Air Sepsis Recent Fever Within 48 Hours No Sepsis New/Unexplained Change in Mental Status No Sepsis Action Taken by Nursing No Action Required VITAL SIGNS - Vital signs and nursing notes were reviewed. GENERAL - 84-year-old female appearing stated age who is in no acute distress. Communicates well with provider and answers questions appropriately. SKIN - Without rashes. HEAD - NC/AT. EYES - PERRL with EOMI bilaterally. Sclera anicteric. Palpebral conjunctiva pink and moist with no injection noted. EARS - No deformities of external structures noted on gross examination bilaterally. No pain elicited with palpation of the tragus bilaterally. External auditory canals without discharge or otorrhea. Tympanic membranes pearly wilkins wi thout retraction or bulging. No fluid or purulent material visualized behind the TM. Handle of malleus, umbo, cone of light, pars tensa/flaccid all easily visualized. NOSE - Midline and without cyanosis. Epistaxis noted both nares. Septum midline without deviation or septal hematoma noted. MOUTH/OROPHARYNX - Without perioral cyanosis. Buccal mucosa pink and moist and without leukoplakia. Tongue midline with equal elevation of palate bilaterally. No tonsillar hypertrophy, erythema, clotted Blood noted posterior pharynx. dentures noted. NECK - Neck with FROM. Supple to palpation. - lymphadenopathy noted. No nuchal rigidity. EXTREMITIES - No clubbing or peripheral cyanosis. No pretibial edema present. +3/5 radial, posterior tibial, and dorsalis pedis pulses palpated throughout. +5/5 strength noted in UE/LE bilaterally. NEUROLOGIC - Cranial nerves II through XII grossly intact. Sensory intact to light touch throughout. Patellar reflexes +2/4. PSYCH - A&Ox3 and cooperates fully with examiner. Pt is very pleasant and interacts well with examiner. Procedures Epistaxis Control Time Out Performed: Yes Nostril: bilateral Nose Prepped With: lidocaine, oxymetazoline and other (TXA) Direct Inspection: unable to visualize Clots Removed by: suction and manually Cautery Used: none Device Inserted: nasal tampon and hemostatic dressing (Removed ) Patient Tolerated Procedure: well Course Administered Medications Discontinued Medications Amoxicillin/Clavulanate Potassium (Augmentin 875mg) 1 tab PO NOW ONE Stop: 01/09/20 20:37 Last Admin: 01/09/20 21:23 Dose: 1 tab Documented by: [id number] Tranexamic Acid (Tranexamic Acid / 0.7% Nacl) 1,000 mg in 100 mls @ 600 mls/hr IV NOW STA Stop: 01/09/20 20:45 Last Infusion: 01/09/20 21:38 Dose: 0 mls/hr Documented by: [id number] Admin: 01/09/20 21:23 Dose: 600 mls/hr Documented by: [id number] Lidocaine HCl (Xylocaine 4% Inh Soln) 2 ml JIA NOW ONE Stop: 01/09/20 18:50 Last Admin: 01/09/20 18:59 Dose: 2 ml Documented by: [id number] Oxymetazoline HCl (Afrin 0.05%) 1 sprays NA NOW ONE Stop: 01/09/20 18:50 Last Admin: 01/09/20 18:58 Dose: 1 sprays Documented by: [id number] Tranexamic Acid (Tranexamic Acid 10% Non-Iv Routes) 1,000 mg TOP ONE ONE Stop: 01/09/20 18:50 Last Admin: 01/09/20 18:59 Dose: 1,000 mg Documented by: [id number] Medical Decision Making Differential Diagnosis Fracture, dislocation, contusion, intra-abdominal, pneumothorax, intrathoracic, intracranial, neurologic, compartment syndrome, rhabdomyolysis, as well as other pathologies. Medical Records Attestation: I reviewed the patient's medical records. Home Medications Current Medication List: was personally reviewed by me Laboratory Data Attestation: I reviewed the patient's lab results. Result diagrams: 01/09/20 21:15 01/09/20 22:03 Lab Results 01/09/20 01/09/20 Range/Units 21:15 21:15 WBC 6.13 (4.8-10.8) K/uL RBC 4.88 (4.2-5.4) M/uL Hgb 14.1 (12.0-16.0) g/dL Hct 44.9 (37-47) % MCV 92.0 (80-100) fL MCH 28.9 (25-34) pg MCHC 31.4 L (32-36) g/dL RDW Std Deviation 52.0 H (36.4-46.3) fL RDW Coeff of Anatoly 15.4 H (11.5-14.5) % Plt Count 168 (130-400) K/uL MPV 10.5 H (7.4-10.4) fL Immature Gran % (Auto) 0.3 % Neut % (Auto) 76.5 % Lymph % (Auto) 12.6 % [place] % (Auto) 8.6 % Eos % (Auto) 1.5 % Baso % (Auto) 0.5 % Immature Gran # (Auto) 0.02 (0.00-0.02) K/uL Neut # (Auto) 4.69 (1.4-6.5) K/uL Lymph # (Auto) 0.77 L (1.2-3.4) K/uL [place] # (Auto) 0.53 (0.11-0.59) K/uL Eos # (Auto) 0.09 (0-0.5) K/uL Baso # (Auto) 0.03 (0-0.2) K/uL Sodium 140 (136-145) mmol/L Potassium (3.5-5.1) mmol/L Chloride 109 H (98-107) mmol/L Carbon Dioxide 27 (21-32) mmol/L Anion Gap 4.0 (3-11) BUN 41 H (7-18) mg/dl Creatinine 1.92 H (0.6-1.2) mg/dl Est Cr Clr Drug Dosing 20.1 ml/min Est GFR ( Amer) 27.6 Est GFR (Non-Af Amer) 23.8 BUN/Creatinine Ratio 21.1 H (10-20) Glucose 103 H (70-99) mg/dl Calcium 8.9 (8.5-10.1) mg/dl Total Bilirubin 0.4 (0.2-1) mg/dl AST (15-37) U/L ALT 50 (12-78) U/L Alkaline Phosphatase 87 (45-117) U/L Total Protein 7.4 (6.4-8.2) gm/dl Albumin 3.7 (3.4-5.0) gm/dl Globulin 3.6 (2.5-4.0) gm/dl Albumin/Globulin Ratio 1.0 (0.9-2) ECG Data Attestation: I personally reviewed and interpreted this ECG as follows: Indication: + other (epistaxis) Rate (beats per minute): 83 Rhythm: + other (atrial paced rhythm with prolonged AV conduction) ECG Ton[place]: + Left axis deviation ECG ST segments: no ST depression and no ST elevation Comparison ECG Date: from (01/18/2019) Change: the following changes noted (Paced rhythm has replaced Normal sinus) Blood Pressure Blood Pressure Findings: Elevated blood pressure Blood Pressure Disposition: elevated BP felt to be situational MDM Narrative Patient was seen and evaluated as above in room C5. Review was performed of nursing notes and vital signs. I did review pertinent previous visits and patient history. After obtaining a thorough history and physical examination the above work up was performed. While in the department, I personally reevaluated the patient several times and each time the patient was found to be resting comfortably. The patient was educated upon management, educated upon todays findings/results, educated upon importance of follow up from today's visit, educated upon symptoms in which to return, had questions answered prior to discharge, verbalized understanding, and was discharged home in good condition. I attest that I have personally reviewed the patient medication list. I attest that I have reviewed the patient's blood pressure and it was found to be elevated GCS: 15 The patient was evaluated during the global COVID-19 pandemic, and that diagnosis was suspected/considered upon their initial presentation. Their evaluation, treatment and testing was consistent with current guidelines for patients who present with complaints or symptoms that may be related to COVID- 19. Cardiac monitoring: An order was placed for continuous cardiac monitoring. The monitor shows a rate of 86 with paced rhythm. This is an 84-year-old female who presents emergency department complaining of epistaxis. I attempted multiple maneuvers to try and get this patient's epistaxis under control however was unable to do so until I placed 2 Rhino Rocket's bilaterally. The patient was then started on Augmentin. Because both nares are packed I am going to have the patient admitted. I did discuss the case with Dr. STEIN who is in agreement with the treatment plan. Patient was given TXA. Case was discussed with the hospitalist who agreed to meet the patient. Impression & Plan Epistaxis, CAD (coronary artery disease) Discharge Plan Visit Data *Final* Discharge Date/Time: 01/09/20 22:28 Chief Complaint: Nose Bleed (Minor) Stated Complaint: NOSEBLEED ED Provider: Carl Wilson Discharge Problem: Epistaxis, CAD (coronary artery disease) Patient Disposition: Admitted As Inpatient Discharge Instructions Interventions: ED Discharge Assessment Last Done: 01/09/20 22:28 Discharge Problem: CAD (coronary artery disease) Qualifiers: Coronary Disease-Associated Artery/Lesion type: unspecified vessel or lesion type [place] vs. transplanted heart: unspecified whether [place] or transplanted heart Associated angina: angina presence unspecified Qualified Code(s): I25.10 - Atherosclerotic heart disease of [place] coronary artery without angina pectoris
[2020-01-09] MEDS ORDERED: AMOXICILLIN/CLAVULANATE 875 MG TAB PO ONE (20:36)
[2020-01-09] MEDS ORDERED: TRANEXAMIC ACID / 0.7% NACL 1,000 MG/100 ML BAG IV STA (20:36)
--- NOTE | 2020-01-09 21:16 | XRay Report ---
XR chest 1V portable CLINICAL HISTORY: weakness dyspnea COMPARISON STUDY: 01/16/2019 FINDINGS: Mild cardiomegaly. Prior valve stent placement. The lungs are clear. Diaphragms are smooth. IMPRESSION: Mild cardiac megaly. Otherwise negative study. ACT 112: Negative or not required by law. The above report was generated using voice recognition software. It may contain grammatical, syntax or spelling errors. Electronically signed by: Walter Mortensen M.D. 01/09/2020 9:15 PM
[2020-01-09 21:25] LABS: Basophils # (auto) 0.03 K/uL (0-0.2); Basophils % (auto) 0.5 %; Eosinophils # (auto) 0.09 K/uL (0-0.5); Eosinophils % (auto) 1.5 %; Hematocrit (blood only) 44.9 % (37-47); Hemoglobin 14.1 g/dL (12.0-16.0); Immature Granulocytes # (auto) 0.02 K/uL (0.00-0.02); Immature Granulocytes % (auto) 0.3 %; Lymphocytes # (auto) 0.77 K/uL (1.2-3.4); Lymphocytes % (auto) 12.6 %; Mean Corpuscular Hemoglobin 28.9 pg (25-34); Mean Corpuscular Hgb Conc 31.4 g/dL (32-36); Mean Platelet Volume 10.5 fL (7.4-10.4); Monocytes # (auto) 0.53 K/uL (0.11-0.59); Monocytes % (auto) 8.6 %; Neutrophils # (auto) 4.69 K/uL (1.4-6.5); Neutrophils % (auto) 76.5 %; Platelet Count 168 K/uL (130-400); RDW Coefficient of Variation 15.4 % (11.5-14.5); Red Blood Count 4.88 M/uL (4.2-5.4); White Blood Count 6.13 K/uL (4.8-10.8)
--- NOTE | 2020-01-09 21:34 | History & Physical Report ---
Date of Service January 09, 2020 Assessment & Plan (1) Epistaxis: Pt is 84 y/o F with PMH CAD s/p stent, aortic stenosis s/o TAVR, HTN, HLD, hypothyroidism, h/o PE and DVT not on anticoagulation secondary to retroperitoneal bleed, H/O IVC filter, h/o AAA repair, CKD IV, high-grade AV block s/p pacemaker presented to ER with complaint of epistaxis since 7am today. Pt on Aspirin and Plavix In ER pt afebrile, P: 89, initial BP taken with very large cuff with reading of 183/95, repeat BP with small adult cuff upon my evaluation with BP of 165/82, 96% on RA No leukocytosis, H/H: 14/44, Plt: 168 -In ER had bilateral naris packed with nasal tampons with control of bleeding at this time -Coags pending -Augmentin for prophylaxis -ENT consult, ER physician reports Dr Benson medel -CBC, BMP in am (2) CAD (coronary artery disease): S/P stent in 2013 -No CP/SOB -Continue metoprolol, statin -Hold aspirin and Plavix at this time (3) HTN (hypertension): Repeat BP in ER 165/82 using appropriate sized BP cuff -Continue amlodipine, metoprolol (4) Aortic stenosis: Status post TAVR in 2018 (5) Complete heart block: History of high-grade AV block s/p pacemaker (6) Personal history of DVT (deep vein thrombosis): H/O DVT and PE not on anticoagulation secondary to history retroperitoneal bleed. S/P IVC filter (7) CKD (chronic kidney disease), stage IV: Cr: 1.9. Baseline Cr: 1.7-1.9 -Monitor renal functions -Avoid nephrotoxic agents when possible (8) Hypothyroidism: -Continue levothyroxine DVT Prophylaxis -SCDs secondary to epistaxis Full Code as per discussion with pt Follows with Dr Fernandez for routine care Pt was seen and care coordinated with Dr Steven. See addendum History of Present Illness Chief Complaint: Epistaxis Primary Care Provider: Dr Fernandez Pt is 84 y/o F with PMH CAD s/p stent, aortic stenosis s/o TAVR, HTN, HLD, hypothyroidism, h/o PE and DVT not on anticoagulation secondary to retroperitoneal bleed, H/O IVC filter, h/o AAA repair, CKD IV, high-grade AV block s/p pacemaker presented to ER with complaint of epistaxis. Patient states this morning she woke up around 7 AM with nosebleed from bilateral naris. She tried packing nose with gauze without much relief. Patient states did have her 81 mg aspirin and Plavix this morning. Denies history of epistaxis. Denies picking nose or nasal injury. Reports does have chronic postnasal drip and takes cetirizine without much relief. Reports uses Flonase intermittently but denies any use recently. Denies any other bleeding. Patient denies any other recent illness, cough, fever, chills. Denies diaphoresis, N/V/D/C, YUAN, dizziness, syncope, vision changes, neck pain, CP, SOB, orthopnea, palpitations, sore throat, choking, otalgia, abdominal pain, paresthesias, weakness, extremity weakness, extremity edema, rashes, urinary symptoms. Allergies Allergy/AdvReac Type Severity Reaction Status Date / Time Cipro Allergy Intermediate RASH Verified 04/19/18 05:27 ciprofloxacin Allergy Intermediate RASH Verified 01/09/20 19:52 metronidazole Allergy Intermediate RASH Verified 01/09/20 19:52 cefuroxime Allergy Unknown RASH Verified 01/09/20 19:52 nitrofurantoin Allergy Unknown UKN Verified 01/09/20 19:52 alendronate sodium AdvReac Intermediate Gastrointestinal Verified 01/09/20 22:55 [From Fosamax] Upset liothyronine AdvReac Mild RAPID Verified 01/09/20 19:52 HEART RATE Home Medications Home Medications Medication Instructions Recorded Confirmed Type aspirin 81 mg tablet,delayed 81 mg PO DAILY 05/01/18 01/09/20 History release cholecalciferol (vitamin D3) 25 1,000 units PO DAILY 05/01/18 01/09/20 History mcg (1,000 unit) capsule clopidogrel 75 mg tablet 75 mg PO DAILY 05/01/18 01/09/20 History fluoride (sodium) 1.1 % dental 1 appln DT DAILY gm 05/01/18 01/09/20 History cream lansoprazole 15 mg capsule,delayed 15 mg PO QAM cap 05/01/18 01/09/20 History release mirtazapine 45 mg tablet 45 mg PO HS tab 05/01/18 01/09/20 History nitroglycerin 0.4 mg sublingual 0.4 mg SL DIRECTED PRN 05/01/18 01/09/20 History tablet oxycodone 5 mg capsule 5 mg PO DAILY PRN cap 05/01/18 01/09/20 History rosuvastatin 5 mg tablet 5 mg PO DAILY 05/01/18 01/09/20 History Lac-Hydrin Five 1 applic TOPICAL DAILY 11/28/18 01/09/20 History amoxicillin 2,000 mg PO DIRECTED PRN 11/28/18 01/09/20 History cranberry extract 200 mg PO DAILY 11/28/18 01/09/20 History melatonin 20 mg PO HS 11/28/18 01/09/20 History metoprolol succinate 25 mg PO DAILY 11/28/18 01/09/20 History prednisone 5 mg PO DAILY 11/28/18 01/09/20 History amlodipine [Norvasc] 2.5 mg PO DAILY 01/16/19 01/09/20 History cetirizine 10 mg PO DAILY 01/09/20 01/09/20 History fluticasone propionate [Flonase 2 spray INTRANASAL DAILY PRN 01/09/20 01/09/20 History Allergy Relief] levothyroxine 50 mcg PO DAILY 01/09/20 01/09/20 History tramadol 50 mg PO Q8H PRN 01/09/20 01/09/20 History Past Med/Surg History Medical History Aftercare following right hip joint replacement surgery (Chronic) Angina pectoris, unspecified (Chronic) Cardiac catheterization as the cause of abnormal reaction of the patient, or of later complication, without mention of misadventure at the time of the procedure (Chronic) Cataracts, bilateral (Resolved) DVT (deep venous thrombosis) (Chronic) Hx of skin cancer, basal cell (Chronic) Hx of squamous cell carcinoma (Chronic) Left bundle branch block (Chronic) Pacemaker (Chronic) Peripheral neuropathy (Chronic) PVD (peripheral vascular disease) (Chronic) Renal disease (Chronic) Sinus tachycardia (Chronic) Wears dentures (Chronic) Surgical History H/O aortic aneurysm repair (Chronic) H/O heart artery stent (Resolved) History of cataract removal with insertion of prosthetic lens (Chronic) Family History Other Heart disease Social History Preferred Language: Tajik Communication Ability: Effective Harness Puller Required: No Beliefs That Will Affect Care: None marital status: Current Living Situation: Spouse current occupation: retired Other Information That Helps Us Care for You: No Feels Safe at Home: Yes Safety Concerns: Feels Safe At This Time Smoking Status: Never smoker Hx Alcohol Use: Yes Alcohol type: wine Hx Substance Use: No Review of Systems Review of Systems: All systems reviewed & are unremarkable except as noted in HPI & below Physical Exam Physical Exam: General: no distress, thin Head: normocephalic, atraumatic Eyes: PERRL, EOM's intact, conjunctiva non-injected, anicteric ENT: hard of hearing, normal inspection external ears, Bilateral naris packed with nasal tampon without surrounding bleeding, posterior pharynx with slight red blood, mucous membranes moist Neck: supple, trachea midline, non-tender Lungs: clear, no respiratory distress, no wheezing/rhonchi/rales CV: RRR, systolic murmur, no pretibial edema Abd: normal BS, soft, non-tender Ext: no cyanosis, no calf tenderness Neuro: A&O x 3, does have some delayed response to answers, no focal deficits noted, normal affect Skin: warm, dry, multiple scattered ecchymosis Results & Data Results & Data ([facility]) Vital Signs (Past 12 Hours) Vital Signs Temp Pulse Pulse Resp BP BP Pulse Ox 01/09/20 21:22 72 18 183/93 H 100 01/09/20 18:42 36.8 C 89 18 183/95 H 96 Laboratory Results Short CBC 01/09/20 Range/Units 21:15 WBC 6.13 (4.8-10.8) K/uL Hgb 14.1 (12.0-16.0) g/dL Hct 44.9 (37-47) % Plt Count 168 (130-400) K/uL BMP 01/09/20 01/09/20 21:15 22:03 Sodium 140 Potassium 4.5 Chloride 109 H Carbon Dioxide 27 BUN 41 H Creatinine 1.92 H Glucose 103 H Calcium 8.9 Liver Function 01/09/20 01/09/20 Range/Units 21:15 22:03 Total Bilirubin 0.4 (0.2-1) mg/dl AST 33 (15-37) U/L ALT 50 (12-78) U/L Alkaline Phosphatase 87 (45-117) U/L Albumin 3.7 (3.4-5.0) gm/dl Diagnostic Findings CXR: IMPRESSION: Mild cardiac megaly. Otherwise negative study. Code Status & VTE Plan VTE Prophylaxis Plan VTE Prophylaxis will be ordered: Yes Supervising Physician Co-Signing Physician Notes Pt seen and examined by me, care coordinated with Kristina Angelo PA-C. Pt is an 84 y/o F with hx of CAD s/p stents to RCA, aortic stenosis s/o TAVR, HTN, HLD, hypothyroidism, h/o PE and DVT not on anticoagulation secondary to retroperitoneal bleed, H/O IVC filter, h/o AAA repair, CKD IV, high-grade AV block s/p pacemaker who presented to ER with complaint of epistaxis since this morning. Pt is on Aspirin and Plavix which she also took today. Tried packing w/ gauze at home but not successful. Now s/p packing in ED, bleeding seems controlled. In ER pt afebrile, P: 89, initial BP taken with very large cuff with reading of 183/95, repeat BP with small adult cuff BP of 165/82, 96% on RA No leukocytosis, H/H: 14/44, Plt: 168 Pt is sitting up in bed, in NAD. She is alert and oriented, hard of hearing. Nares packed b/l, some red blood noted in posterior pharynx. Lungs are CTAB no wheezing, rhonchi or crackles. Heart sounds regular w/ syst. murmur noted at llsb. Abdomen soft nontender, nondistended. Moves extremities spontaneously, well perfused. Provide Augmentin for prophylaxis. ENT consulted, ER physician reports Dr Knowles aware. For now will hold ASA and plavix (pt already took today 01/09/2020). Pt follows w/ sand analyst Dr. Pinto, last seen in Oct 2019. At that time plan was to cont. dual antiplatelet therapy unless incr. bleeding/anemia. Follow CBC in am. A. Sadafab, MD
[2020-01-09 21:45] LABS: Albumin Level 3.7 gm/dl (3.4-5.0); BUN Creatinine Ratio 21.1 (10-20); Bilirubin,Total 0.4 mg/dl (0.2-1); Calcium 8.9 mg/dl (8.5-10.1); Creatinine Clr Calc Pharmacy 20.1 ml/min; Est GFR (African American) 27.6; Est GFR (Non-African American) 23.8; Globulin 3.6 gm/dl (2.5-4.0); Total Protein 7.4 gm/dl (6.4-8.2)
[2020-01-09 22:21] LABS: Partial Thromboplastin Ratio 0.9; Partial Thromboplastin Time 24.7 Seconds (21.0-31.0); Prothrombin Time 10.4 Seconds (9.0-12.0)
[2020-01-09 22:22] LABS: Potassium 4.5 mmol/L (3.5-5.1)
[2020-01-09] MEDS ORDERED: OXYCODONE HCL IR 5 MG TAB (IMMEDIATE RELEASE) PO PRN (22:43)
[2020-01-09] MEDS ORDERED: NITROGLYCERIN SL 0.4 MG/TAB TAB SL PRN (22:43)
[2020-01-09] MEDS ORDERED: TRAMADOL HCL 50 MG TABLET PO PRN (22:43)
[2020-01-09] MEDS ORDERED: ACETAMINOPHEN 325 MG TAB PO PRN (22:43)
[2020-01-10] MEDS ORDERED: LORazepam 0.5 MG TAB PO STA (00:32)
[2020-01-10] MEDS: AMLODIPINE BESYLATE 5 MG TAB PO SCH (01:25)
[2020-01-10 04:11] LABS: Appearance Urine Clear (Clear); Bilirubin Urine Negative (Negative); Blood Urine Negative (Negative); Color Urine Yellow; Glucose Urine UA Negative (Negative); Ketones Urine Negative (Negative); Leukocyte Esterase Urine Negative (Negative); Nitrite Urine Negative (Negative); Protein Urine Negative (Negative); Specific Gravity Urine 1.014 (1.000-1.030); Urobilinogen Urine Negative (Negative)
[2020-01-10] MEDS: LEVOTHYROXINE SODIUM 50 MCG TABLET PO SCH (06:17)
[2020-01-10 06:39] LABS: Hematocrit (blood only) 43.2 % (37-47); Hemoglobin 13.6 g/dL (12.0-16.0); Mean Corpuscular Hemoglobin 29.4 pg (25-34); Mean Corpuscular Hgb Conc 31.5 g/dL (32-36); Mean Corpuscular Volume 93.3 fL (80-100); Mean Platelet Volume 10.3 fL (7.4-10.4); Platelet Count 181 K/uL (130-400); RDW Coefficient of Variation 15.5 % (11.5-14.5); RDW Standard Deviation 52.8 fL (36.4-46.3); Red Blood Count 4.63 M/uL (4.2-5.4)
[2020-01-10 07:09] LABS: BUN Creatinine Ratio 19.7 (10-20); Calcium 8.6 mg/dl (8.5-10.1); Creatinine Clr Calc Pharmacy 20.2 ml/min; Est GFR (African American) 27.8; Potassium 4.5 mmol/L (3.5-5.1)
[2020-01-10] MEDS: METOPROLOL SUCC 25MG EXT REL TAB PO SCH (07:46)
[2020-01-10] MEDS: AMOXICILLIN/CLAVULANATE 500 MG TAB PO SCH ×2 (07:46→17:04)
[2020-01-10] MEDS: PANTOprazole 40 MG TAB PO SCH (07:46)
[2020-01-10] MEDS: ROSUVASTATIN CALCIUM 5 MG TAB PO SCH (07:46)
[2020-01-10] MEDS: CHOLECALCIFEROL 1,000 UNITS 25 MCG TAB PO SCH (07:46)
[2020-01-10] MEDS: predniSONE 5 MG TAB PO SCH (07:47)
--- NOTE | 2020-01-10 08:34 | Electrocardiogram Report ---
Test Reason : Blood Pressure : / mmHG Vent. Rate : 083 BPM Atrial Rate : 083 BPM P-R Int : 226 ms QRS Dur : 148 ms QT Int : 404 ms P-R-T Axes : 023 -55 083 degrees QTc Int : 474 ms Atrial-paced rhythm with prolonged AV conduction Left axis deviation Left bundle branch block Abnormal ECG When compared with ECG of 18-JAN-2019 07:02, Electronic atrial pacemaker now present Left bundle branch block now present Confirmed by Yogesh Saini ([id number]) on 01/10/2020 8:34:21 AM Referred By: REFERRED SELF Confirmed By:Yogesh Saini
[2020-01-10] MEDS ORDERED: CETIRIZINE HCL 10 MG TABLET PO SCH (09:00)
[2020-01-10] MEDS ORDERED: AMLODIPINE BESYLATE 5 MG TAB PO SCH (09:00)
[2020-01-10] MEDS ORDERED: WATER, STERILE 10 ML, TETRACAINE 0.4 GM TOP ONE (10:21)
--- NOTE | 2020-01-10 10:26 | ENT Consultation ---
Date of Consultation January 10, 2020 Assessment & Plan (1) Epistaxis: due to significant bleeding, will do endo cautery and packing History of Present Illness Reason for Consultation: epistaxis Attending Physician: Rogers Valentino MD History of Present Illness 84 yo with epistaxis Allergies Allergy/AdvReac Type Severity Reaction Status Date / Time Cipro Allergy Intermediate RASH Verified 04/19/18 05:27 ciprofloxacin Allergy Intermediate RASH Verified 01/09/20 19:52 metronidazole Allergy Intermediate RASH Verified 01/09/20 19:52 cefuroxime Allergy Unknown RASH Verified 01/09/20 19:52 nitrofurantoin Allergy Unknown UKN Verified 01/09/20 19:52 alendronate sodium AdvReac Intermediate Gastrointestinal Verified 01/09/20 22:55 [From Fosamax] Upset liothyronine AdvReac Mild RAPID Verified 01/09/20 19:52 HEART RATE Home Medications Home Medications Medication Instructions Recorded Confirmed Type aspirin 81 mg tablet,delayed 81 mg PO DAILY 05/01/18 01/09/20 History release cholecalciferol (vitamin D3) 25 1,000 units PO DAILY 05/01/18 01/09/20 History mcg (1,000 unit) capsule clopidogrel 75 mg tablet 75 mg PO DAILY 05/01/18 01/09/20 History fluoride (sodium) 1.1 % dental 1 appln DT DAILY gm 05/01/18 01/09/20 History cream lansoprazole 15 mg capsule,delayed 15 mg PO QAM cap 05/01/18 01/09/20 History release mirtazapine 45 mg tablet 45 mg PO HS tab 05/01/18 01/09/20 History nitroglycerin 0.4 mg sublingual 0.4 mg SL DIRECTED PRN 05/01/18 01/09/20 History tablet oxycodone 5 mg capsule 5 mg PO DAILY PRN cap 05/01/18 01/09/20 History rosuvastatin 5 mg tablet 5 mg PO DAILY 05/01/18 01/09/20 History Lac-Hydrin Five 1 applic TOPICAL DAILY 11/28/18 01/09/20 History amoxicillin 2,000 mg PO DIRECTED PRN 11/28/18 01/09/20 History cranberry extract 200 mg PO DAILY 11/28/18 01/09/20 History melatonin 20 mg PO HS 11/28/18 01/09/20 History metoprolol succinate 25 mg PO DAILY 11/28/18 01/09/20 History prednisone 5 mg PO DAILY 11/28/18 01/09/20 History amlodipine [Norvasc] 2.5 mg PO DAILY 01/16/19 01/09/20 History cetirizine 10 mg PO DAILY 01/09/20 01/09/20 History fluticasone propionate [Flonase 2 spray INTRANASAL DAILY PRN 01/09/20 01/09/20 History Allergy Relief] levothyroxine 50 mcg PO DAILY 01/09/20 01/09/20 History tramadol 50 mg PO Q8H PRN 01/09/20 01/09/20 History Patient History Medical History Aftercare following right hip joint replacement surgery (Chronic) Angina pectoris, unspecified (Chronic) Cardiac catheterization as the cause of abnormal reaction of the patient, or of later complication, without mention of misadventure at the time of the procedure (Chronic) Cataracts, bilateral (Resolved) DVT (deep venous thrombosis) (Chronic) Hx of skin cancer, basal cell (Chronic) Hx of squamous cell carcinoma (Chronic) Left bundle branch block (Chronic) Pacemaker (Chronic) Peripheral neuropathy (Chronic) PVD (peripheral vascular disease) (Chronic) Renal disease (Chronic) Sinus tachycardia (Chronic) Wears dentures (Chronic) Surgical History H/O aortic aneurysm repair (Chronic) H/O heart artery stent (Resolved) History of cataract removal with insertion of prosthetic lens (Chronic) Family History Other Heart disease Social History Preferred Language: Brazilian Communication Ability: Effective Aquatic Physiotherapist Required: No Beliefs That Will Affect Care: None marital status: Current Living Situation: Spouse current occupation: retired Other Information That Helps Us Care for You: No Feels Safe at Home: Yes Safety Concerns: Feels Safe At This Time Smoking Status: Never smoker Hx Alcohol Use: Yes Alcohol type: wine Hx Substance Use: No Physical Exam Constitutional: WD/WN, vitals as above Eyes: PERRL, conjunctivae normal, anicteric sclerae ENMT: Nose: + nasal mucous membrane abnormality (packing bilst., blood) Neck: trachea midline, no thyromegaly Respiratory: normal respiratory effort, lungs clear to auscultation Cardiovascular: RRR, no murmur, no edema Results & Data ([facility]) Vital Signs (Past 12 Hours) Vital Signs Temp Pulse Pulse Resp BP BP Pulse Ox 01/10/20 08:12 36.3 C L 73 18 144/88 H 95 01/10/20 08:00 94 H 01/10/20 02:56 36.4 C L 96 H 16 169/90 H 97 01/10/20 01:25 138/84 01/09/20 23:29 36.4 C L 86 18 173/98 H 93 01/09/20 22:44 36.4 C L 86 18 173/98 H 93
[2020-01-10] MEDS ORDERED: LIDOCAINE HCL 2% 2 ML VIAL/AMP(20MG/ML) INFIL ONE (13:58)
[2020-01-10] MEDS ORDERED: PROPOFOL IV EMULSION 10 MG/ML 20 ML VIAL IV ONE (13:58)
[2020-01-10] MEDS ORDERED: MIDAZOLAM HCL 1 MG/ML 2ML VIAL ONE (13:58)
[2020-01-10] MEDS ORDERED: fentaNYL citrate 100 MCG/2 ML VIAL ONE (13:58)
[2020-01-10] MEDS ORDERED: GELATIN SPONGE SZ 100 ONE (14:05)
--- NOTE | 2020-01-10 14:16 | Anesthesiology Consultation ---
Date of Service January 10, 2020 Assessment & Plan (1) Encounter for pre-operative examination: Chart Review Chart Review: Acceptable Risk for Surgery and Patient NOT seen in Pre Admission Testing Consults Requested none ASA ASA2 Proposed Anesthesia Anesthesia Type: MAC Risk / Benefits Reviewed With: PT / POA / Parent / Guardian, Accepts Plan and Informed Consent Obtained History Surgery Operation Date: 01/10/20 11:20 Proposed Procedures p Endoscopic Cautery and Packing - Yashira Knowles MD Height/Weight Height: 5 ft 7 in Weight: 56.4 kg Allergies Allergy/AdvReac Type Severity Reaction Status Date / Time Cipro Allergy Intermediate RASH Verified 04/19/18 05:27 ciprofloxacin Allergy Intermediate RASH Verified 01/09/20 19:52 metronidazole Allergy Intermediate RASH Verified 01/09/20 19:52 cefuroxime Allergy Unknown RASH Verified 01/09/20 19:52 nitrofurantoin Allergy Unknown UKN Verified 01/09/20 19:52 alendronate sodium AdvReac Intermediate Gastrointestinal Verified 01/09/20 22:55 [From Fosamax] Upset liothyronine AdvReac Mild RAPID Verified 01/09/20 19:52 HEART RATE Medications Home Medications Medication Instructions Recorded Confirmed Last Taken aspirin 81 mg tablet,delayed 81 mg PO DAILY 05/01/18 01/09/20 01/09/20 release cholecalciferol (vitamin D3) 25 1,000 units PO DAILY 05/01/18 01/09/20 01/09/20 mcg (1,000 unit) capsule clopidogrel 75 mg tablet 75 mg PO DAILY 05/01/18 01/09/20 01/09/20 fluoride (sodium) 1.1 % dental 1 appln DT DAILY gm 05/01/18 01/09/20 01/15/19 cream lansoprazole 15 mg capsule,delayed 15 mg PO QAM cap 05/01/18 01/09/20 01/09/20 release mirtazapine 45 mg tablet 45 mg PO HS tab 05/01/18 01/09/20 01/08/20 nitroglycerin 0.4 mg sublingual 0.4 mg SL DIRECTED PRN 05/01/18 01/09/20 01/15/19 tablet oxycodone 5 mg capsule 5 mg PO DAILY PRN cap 05/01/18 01/09/20 01/15/19 rosuvastatin 5 mg tablet 5 mg PO DAILY 05/01/18 01/09/20 01/09/20 Lac-Hydrin Five 1 applic TOPICAL DAILY 11/28/18 01/09/20 01/15/19 amoxicillin 2,000 mg PO DIRECTED PRN 11/28/18 01/09/20 01/15/19 cranberry extract 200 mg PO DAILY 11/28/18 01/09/20 01/09/20 melatonin 20 mg PO HS 11/28/18 01/09/20 01/08/20 metoprolol succinate 25 mg PO DAILY 11/28/18 01/09/20 01/09/20 prednisone 5 mg PO DAILY 11/28/18 01/09/20 01/09/20 amlodipine [Norvasc] 2.5 mg PO DAILY 01/16/19 01/09/20 01/09/20 cetirizine 10 mg PO DAILY 01/09/20 01/09/20 Unknown fluticasone propionate [Flonase 2 spray INTRANASAL DAILY PRN 01/09/20 01/09/20 Unknown Allergy Relief] levothyroxine 50 mcg PO DAILY 01/09/20 01/09/20 01/09/20 tramadol 50 mg PO Q8H PRN 01/09/20 01/09/20 01/08/20 Active Medications Generic Name Dose Route Start Last Admin Trade Name Shakeelq PRN Reason Stop Dose Admin Amlodipine Besylate 5 mg 01/10/20 00:45 01/10/20 01:25 Norvasc PO 02/09/20 00:44 5 mg DAILY BHAVYA Administration Amoxicillin/Clavulanate Potassium 1 tab 01/10/20 08:00 01/10/20 07:46 Augmentin 500mg PO 01/14/20 07:59 1 tab BIDM BHAVYA Administration Protocol Cetirizine HCl 10 mg 01/10/20 09:00 01/10/20 07:46 Zyrtec PO 02/09/20 08:59 10 mg DAILY BHAVYA Administration Levothyroxine Sodium 50 mcg 01/10/20 06:30 01/10/20 06:17 Synthroid PO 02/09/20 06:29 50 mcg DAILYBB BHAVYA Administration Metoprolol Succinate 25 mg 01/10/20 09:00 01/10/20 07:46 Toprol Xl PO 02/09/20 08:59 25 mg DAILY BHAVYA Administration Pantoprazole Sodium 40 mg 01/10/20 09:00 01/10/20 07:46 Protonix PO 02/09/20 08:59 40 mg QAM BHAVYA Administration Prednisone 5 mg 01/10/20 09:00 01/10/20 07:47 Prednisone PO 02/09/20 08:59 5 mg DAILY BHAVYA Administration Rosuvastatin Calcium 5 mg 01/10/20 09:00 01/10/20 07:46 Crestor PO 02/09/20 08:59 5 mg DAILY BHAVYA Administration Vitamin D 1,000 units 01/10/20 09:00 01/10/20 07:46 Vitamin D3 PO 02/09/20 08:59 1,000 units DAILY BHAVYA Administration NPO Date Last Intake of Fluids: 01/10/20 Time Last Intake of Fluids: 08:00 Date Last Intake of Solids: 01/10/20 Time Last Intake of Solids: 08:00 Past Medical History Medical History Aftercare following right hip joint replacement surgery (Chronic) Angina pectoris, unspecified (Chronic) Cardiac catheterization as the cause of abnormal reaction of the patient, or of later complication, without mention of misadventure at the time of the procedure (Chronic) Cataracts, bilateral (Resolved) DVT (deep venous thrombosis) (Chronic) Hx of skin cancer, basal cell (Chronic) Hx of squamous cell carcinoma (Chronic) Left bundle branch block (Chronic) Pacemaker (Chronic) Peripheral neuropathy (Chronic) PVD (peripheral vascular disease) (Chronic) Renal disease (Chronic) Sinus tachycardia (Chronic) Wears dentures (Chronic) Exercise / Class Metabolic Activity II 4-5 Yardwork/Stairs/Walk up hill Past Family History Family History Other Heart disease Past Surgical History Surgical History H/O aortic aneurysm repair (Chronic) H/O heart artery stent (Resolved) History of cataract removal with insertion of prosthetic lens (Chronic) Past Anesthesia History No Hx of Anesthesia Complications and No Family Hx of Anesthesia Complications History of PONV No Hx of PONV and No Hx of Motion Sickness Social History Smoking Status: Never smoker Hx Alcohol Use: Yes Alcohol type: wine alcohol intake frequency: a few times a week Hx Substance Use: No substance use type: does not use Physical Exam Vital Signs Last Vital Signs Temp 36.4 C L 01/10/20 13:50 Pulse 66 01/10/20 13:50 Resp 16 01/10/20 13:50 BP 132/68 01/10/20 13:50 Pulse Ox 96 01/10/20 13:50 ENMT Mouth: no dentition abnormality Thyromental Distance: > or= 3.5 Finger Breadths Mallampati Class: II Neck normal visual inspection short chin Respiratory normal respiratory effort Auscultation: lungs clear to auscultation bilaterally Cardiovascular Rate/Rhythm: regular rate and regular rhythm Psychiatric Orientation: alert Testing Laboratory Results 01/10/20 06:21 01/10/20 06:21 PT 10.4 Seconds (9.0-12.0) 01/09/20 22:03 INR 1.0 (0.9-1.1) 01/09/20 22:03 APTT 24.7 Seconds (21.0-31.0) 01/09/20 22:03 Urine Color Yellow 01/10/20 02:56 Urine Appearance Clear (Clear) 01/10/20 02:56 Urine pH 7.0 (4.5-7.5) 01/10/20 02:56 Ur Specific [place] 1.014 (1.000-1.030) 01/10/20 02:56 Urine Protein Negative (Negative) 01/10/20 02:56 Urine Glucose (UA) Negative (Negative) 01/10/20 02:56 Urine Ketones Negative (Negative) 01/10/20 02:56 Urine Nitrite Negative (Negative) 01/10/20 02:56 Ur Leukocyte Esterase Negative (Negative) 01/10/20 02:56
[2020-01-10] MEDS ORDERED: ATROPINE SULFATE 0.1 MG/ML 10ML SYR IV PRN (14:17)
[2020-01-10] MEDS ORDERED: ePHEDrine sulfate 50 MG/ML AMP IV PRN (14:17)
[2020-01-10] MEDS ORDERED: fentaNYL citrate 100 MCG/2 ML VIAL IV PRN (14:17)
[2020-01-10] MEDS ORDERED: ONDANSETRON INJ 2 MG/ML 2 ML VIAL IV PRN (14:17)
[2020-01-10] MEDS ORDERED: OXYMETAZOLINE 0.05% 30 ML BTL ONE (14:23)
[2020-01-10] MEDS ORDERED: FLOSEAL HEMOSTATIC MATRIX 10ML TOP ONE (14:33)
--- NOTE | 2020-01-10 14:57 | Operative Report ---
Post Operative Report Pre & Post Diagnosis Operation Date: 01/10/20 11:20 Pre-Op Diagnosis: Epistaxis Post-Op Diagnosis: Epistaxis I identified the patient and participated in the time-out.: Yes Procedure Operation Date: 01/10/20 11:20 Actual Procedures p Endoscopic Cautery and Packing(Bilateral) - Yashira Knowles MD Surgeon Yashira Knowles MD Finance Lecturer none Estimated Blood Loss 10 Findings Consistent with Post-Op Diagnosis Specimens none Anesthesia Type Local Complications none Disposition Accompanied Patient To Recovery: Yes Disposition: Recovery Room Indications Epistaxis Description of Procedure She was brought to the operating room, properly identified, prepped and draped in the usual sterile manner. The nose was anesthetized using topical cottonoids with a solution of 4 cc of 4% tetracaine mixed with 1 cc of Afrin. After adequate anesthesia the 0 degree endoscope was used and the bleeding site was identified along a large septal perforation with 2 bleeding vessels identified on the left side of the perforation 1 anteriorly and 1 posteriorly. These were cauterized using the suction cautery. Posterior packing was started with 3 strips of Gelfoam on the left side posteriorly and 2 strips of Gelfoam on the right side posteriorly and then 10 cc of FloSeal was used to fill the nasal cavity followed by 2 strips of Gelfoam 1 on each nostril anteriorly. She tolerated procedure well was taken recovery area in satisfactory condition. I attest to the content of the Intraoperative Record and any orders documented therein. Any exceptions are noted below.
--- NOTE | 2020-01-10 15:17 | Anesthesiology Progress Note ---
Date of Service January 10, 2020 Anesthesia Post Procedure Vital Signs Vital Signs: Temp Pulse Pulse Resp BP BP BP 01/10/20 13:50 36.4 C L 66 16 132/68 01/10/20 12:00 36.4 C L 78 18 137/84 01/10/20 08:12 36.3 C L 73 18 144/88 H 01/10/20 08:00 94 H 01/10/20 02:56 36.4 C L 96 H 16 169/90 H 01/10/20 01:25 138/84 01/09/20 23:29 36.4 C L 86 18 173/98 H 01/09/20 22:44 36.4 C L 86 18 173/98 H 01/09/20 21:22 72 18 183/93 H 01/09/20 18:42 36.8 C 89 18 183/95 H Pulse Ox 01/10/20 13:50 96 01/10/20 12:00 97 01/10/20 08:12 95 01/10/20 08:00 01/10/20 02:56 97 01/10/20 01:25 01/09/20 23:29 93 01/09/20 22:44 93 01/09/20 21:22 100 01/09/20 18:42 96 Transfer of Care Handoff Completed per policy Notes Mental Status: alert / awake / arousable Patient Amnestic to Procedure: No (no sedation provided) Nausea / Vomiting: adequately controlled Pain: adequately controlled Airway Patency, RR, SpO2: stable & adequate BP & HR: stable & adequate Hydration State: stable & adequate Anesthetic Complications: no major complications apparent
[2020-01-10] MEDS ORDERED: ZOLPIDEM TARTRATE 5 MG TAB PO PRN (16:02)
--- NOTE | 2020-01-10 16:57 | Hospitalist Progress Note ---
Date of Service January 10, 2020 Assessment & Plan (1) Epistaxis: Patient is an 84 yr female with H/O CAD s/p stent, aortic stenosis s/o TAVR, HTN, HLD, hypothyroidism, h/o PE and DVT not on anticoagulation secondary to retroperitoneal bleed, H/O IVC filter, h/o AAA repair, CKD IV, high-grade AV block s/p pacemaker presented to ER with complaint of epistaxis. Epistaxis S/P Endoscopic Cautery and Packing bilaterally by POD#0 No Coagulopathy Continue to hold Aspirin, Plavix for now Avoid Anticoagulation Continue Prophylactic Augmentin Appreciate ENT help Avoid anticoagulants (2) CAD (coronary artery disease): S/P stent in 2013 Continue metoprolol, statin Hold aspirin and Plavix for now (3) HTN (hypertension): Stable Continue amlodipine, metoprolol (4) Aortic stenosis: Status post TAVR in 2018 (5) Complete heart block: History of high-grade AV block s/p pacemaker (6) Personal history of DVT (deep vein thrombosis): H/O DVT and PE Not on anticoagulation due to retroperitoneal bleed S/P IVC filter (7) CKD (chronic kidney disease), stage IV: Baseline Cr: 1.7-1.9 Monitor renal functions Avoid nephrotoxic agents (8) Hypothyroidism: Continue levothyroxine DVT Px SCDs Re:secondary to epistaxis Code Status Full Code Disposition: Expect to discharge home when stable Admission and Anticipated Discharge Date Admission Date: January 09, 2020 Subjective Patient is seen and examined at bedside No recurrence of bleeding Planned for endoscopic cautery and packing by ENT today Discussed with ENT today Patient denies any chest pain, SOB, dizziness, nausea, abd pain Offers no other complaints Review of Systems Review of Systems: All systems reviewed & are unremarkable except as noted in HPI & below Physical Exam Physical Exam: Physical Exam: Vitals signs as noted above General Appearance:Thin, Frail, no apparent distress Head: normocephalic, Atraumatic, +Nasal Packing Eyes: normal inspection, EOMI Neck: supple, Trachea midline Respiratory/Chest: Normal breath sounds, CTA Cardiovascular: S1, S2, +murmur Abdomen/GI:Soft, Non tender, Bowel sounds present Extremities/Musculoskelatal:normal inspection, Trace B/L pedal edema Neurologic/Psych:AAOX3, grossly no focal neurological deficits Skin: normal color, warm Results & Data Results & Data ([facility]) Vital Signs (Past 12 Hours) Vital Signs Temp Pulse Pulse Resp BP BP Pulse Ox 01/10/20 15:55 36.4 C L 69 18 153/75 H 97 01/10/20 13:50 36.4 C L 66 16 132/68 96 01/10/20 12:00 36.4 C L 78 18 137/84 97 01/10/20 08:12 36.3 C L 73 18 144/88 H 95 01/10/20 08:00 94 H Laboratory Results Short CBC 01/09/20 01/10/20 Range/Units 21:15 06:21 WBC 6.13 7.60 (4.8-10.8) K/uL Hgb 14.1 13.6 (12.0-16.0) g/dL Hct 44.9 43.2 (37-47) % Plt Count 168 181 (130-400) K/uL BMP 01/09/20 01/09/20 01/10/20 21:15 22:03 06:21 Sodium 140 140 Potassium 4.5 4.5 Chloride 109 H 108 H Carbon Dioxide 27 29 BUN 41 H 38 H Creatinine 1.92 H 1.91 H Glucose 103 H 89 Calcium 8.9 8.6 Liver Function 01/09/20 01/09/20 Range/Units 21:15 22:03 Total Bilirubin 0.4 (0.2-1) mg/dl AST 33 (15-37) U/L ALT 50 (12-78) U/L Alkaline Phosphatase 87 (45-117) U/L Albumin 3.7 (3.4-5.0) gm/dl Urine 01/10/20 Range/Units 02:56 Urine Color Yellow Urine Appearance Clear (Clear) Urine pH 7.0 (4.5-7.5) Ur Specific [place] 1.014 (1.000-1.030) Urine Protein Negative (Negative) Urine Glucose (UA) Negative (Negative) (1) CAD (coronary artery disease) Associated angina: angina presence unspecified Coronary Disease-Associated Artery/Lesion type: unspecified vessel or lesion type [place] vs. transplanted heart: unspecified whether [place] or transplanted heart Qualified Code(s): I25.10 - Atherosclerotic heart disease of [place] coronary artery without angina pectoris
[2020-01-10] MEDS ORDERED: MIRTAZAPINE SOLTAB 15 MG PO SCH (21:00)
[2020-01-10] MEDS: MELATONIN 3 MG TAB PO SCH ×2 (22:10→22:13)
[2020-01-11 05:31] LABS: Hematocrit (blood only) 41.9 % (37-47); Hemoglobin 13.1 g/dL (12.0-16.0); Mean Corpuscular Hemoglobin 28.6 pg (25-34); Mean Corpuscular Hgb Conc 31.3 g/dL (32-36); Mean Corpuscular Volume 91.5 fL (80-100); Mean Platelet Volume 10.8 fL (7.4-10.4); Platelet Count 145 K/uL (130-400); RDW Coefficient of Variation 15.5 % (11.5-14.5); RDW Standard Deviation 51.9 fL (36.4-46.3); Red Blood Count 4.58 M/uL (4.2-5.4)
[2020-01-11] MEDS: LEVOTHYROXINE SODIUM 50 MCG TABLET PO SCH (05:59)
[2020-01-11 06:07] LABS: Calcium 8.6 mg/dl (8.5-10.1); Creatinine Clr Calc Pharmacy 19.5 ml/min; Est GFR (African American) 26.6; Potassium 3.8 mmol/L (3.5-5.1)
[2020-01-11] MEDS: PANTOprazole 40 MG TAB PO SCH (08:21)
[2020-01-11] MEDS: AMOXICILLIN/CLAVULANATE 500 MG TAB PO SCH (08:21)
[2020-01-11] MEDS: ROSUVASTATIN CALCIUM 5 MG TAB PO SCH (08:21)
[2020-01-11] MEDS: AMLODIPINE BESYLATE 5 MG TAB PO SCH (08:21)
[2020-01-11] MEDS: CHOLECALCIFEROL 1,000 UNITS 25 MCG TAB PO SCH (08:21)
[2020-01-11] MEDS: METOPROLOL SUCC 25MG EXT REL TAB PO SCH (08:21)
[2020-01-11] MEDS: predniSONE 5 MG TAB PO SCH (08:21)
--- NOTE | 2020-01-11 11:28 | Electrocardiogram Report ---
Test Reason : Blood Pressure : / mmHG Vent. Rate : 092 BPM Atrial Rate : 092 BPM P-R Int : 216 ms QRS Dur : 136 ms QT Int : 388 ms P-R-T Axes : -23 -61 099 degrees QTc Int : 479 ms Atrial-paced rhythm with prolonged AV conduction Left axis deviation Left bundle branch block Abnormal ECG When compared with ECG of 09-JAN-2020 20:49, No significant change Confirmed by Yogesh Saini ([id number]) on 01/11/2020 11:27:42 AM Referred By: REFERRED SELF Confirmed By:Yogesh Saini
--- NOTE | 2020-01-11 12:14 | Hospitalist Progress Note ---
Date of Service January 11, 2020 Assessment & Plan (1) Epistaxis: Patient is an 84 yr female with H/O CAD s/p stent, aortic stenosis s/o TAVR, HTN, HLD, hypothyroidism, h/o PE and DVT not on anticoagulation secondary to retroperitoneal bleed, H/O IVC filter, h/o AAA repair, CKD IV, high-grade AV block s/p pacemaker presented to ER with complaint of epistaxis. Epistaxis S/P Endoscopic Cautery and Packing bilaterally by POD#1 No Coagulopathy Held Aspirin, Plavix Plan to restart plavix today: Patient prefers to wait until tomorrow Continue Prophylactic Augmentin Appreciate ENT help Diarrhea H/O IBS Will check stool for c diff if reoccurs (2) CAD (coronary artery disease): S/P stent in 2013 Continue metoprolol, statin Hold aspirin and Plavix for now (3) HTN (hypertension): Stable Continue amlodipine, metoprolol (4) Aortic stenosis: Status post TAVR in 2018 (5) Complete heart block: History of high-grade AV block s/p pacemaker (6) Personal history of DVT (deep vein thrombosis): H/O DVT and PE Not on anticoagulation due to retroperitoneal bleed S/P IVC filter (7) CKD (chronic kidney disease), stage IV: Baseline Cr: 1.7-1.9 Monitor renal functions Avoid nephrotoxic agents (8) Hypothyroidism: Continue levothyroxine DVT Px SCDs Re:secondary to epistaxis Code Status Full Code Disposition: Expect to discharge home when stable Admission and Anticipated Discharge Date Admission Date: January 09, 2020 Subjective Patient is seen and examined at bedside Reports diarrhea which she attributes to IBS No epistaxis today Patient denies any chest pain, SOB, dizziness, nausea, abd pain Eager to get discharged Review of Systems Review of Systems: All systems reviewed & are unremarkable except as noted in HPI & below Physical Exam Physical Exam: Physical Exam: Vitals signs as noted above General Appearance:Thin, Frail, no apparent distress Head: normocephalic, Atraumatic Eyes: normal inspection, EOMI Neck: supple, Trachea midline Respiratory/Chest: Normal breath sounds, CTA Cardiovascular: S1, S2, +murmur Abdomen/GI:Soft, Non tender, Bowel sounds present Extremities/Musculoskelatal:normal inspection, Trace B/L pedal edema Neurologic/Psych:AAOX3, grossly no focal neurological deficits Skin: normal color, warm Results & Data Results & Data ([facility]) Vital Signs (Past 12 Hours) Vital Signs Temp Pulse Pulse Resp BP Pulse Ox 01/11/20 11:18 36.5 C 92 H 18 130/82 95 01/11/20 07:35 66 01/11/20 07:02 36.3 C L 71 18 166/78 H 95 01/11/20 05:19 87 01/11/20 04:29 36.6 C 81 19 155/78 H 95 01/11/20 00:21 36.6 C 96 H 19 153/93 H 98 Laboratory Results Short CBC 01/11/20 Range/Units 04:17 WBC 4.50 L (4.8-10.8) K/uL Hgb 13.1 (12.0-16.0) g/dL Hct 41.9 (37-47) % Plt Count 145 (130-400) K/uL BMP 01/11/20 04:17 Sodium 144 Potassium 3.8 D Chloride 111 H Carbon Dioxide 26 BUN 34 H Creatinine 1.98 H Glucose 87 Calcium 8.6 (1) CAD (coronary artery disease) Associated angina: angina presence unspecified Coronary Disease-Associated Artery/Lesion type: unspecified vessel or lesion type [place] vs. transplanted heart: unspecified whether [place] or transplanted heart Qualified Code(s): I25.10 - Atherosclerotic heart disease of [place] coronary artery without angina pectoris
--- NOTE | 2020-01-11 13:20 | Discharge Summary ---
Date of Service January 11, 2020 Admission HPI Per Admitting Provider Pt is 84 y/o F with PMH CAD s/p stent, aortic stenosis s/o TAVR, HTN, HLD, hypothyroidism, h/o PE and DVT not on anticoagulation secondary to retroperitoneal bleed, H/O IVC filter, h/o AAA repair, CKD IV, high-grade AV blo ck s/p pacemaker presented to ER with complaint of epistaxis. Patient states this morning she woke up around 7 AM with nosebleed from bilateral naris. She tried packing nose with gauze without much relief. Patient states did have her 81 mg aspirin and Plavix this morning. Denies history of epistaxis. Denies picking nose or nasal injury. Reports does have chronic postnasal drip and takes cetirizine without much relief. Reports uses Flonase intermittently but denies any use recently. Denies any other bleeding. Patient denies any other recent illness, cough, fever, chills. Denies diaphoresis, N/V/D/C, YUAN, dizziness, syncope, vision changes, neck pain, CP, SOB, orthopnea, palpitations, sore throat, choking, otalgia, abdominal pain, paresthesias, weakness, extremity weakness, extremity edema, rashes, urinary symptoms. Admission Exam Per Admitting Provider Physical Exam Physical Exam: General: no distress, thin Head: normocephalic, atraumatic Eyes: PERRL, EOM's intact, conjunctiva non-injected, anicteric ENT: hard of hearing, normal inspection external ears, Bilateral naris packed with nasal tampon without surrounding bleeding, posterior pharynx with slight red blood, mucous membranes moist Neck: supple, trachea midline, non-tender Lungs: clear, no respiratory distress, no wheezing/rhonchi/rales CV: RRR, systolic murmur, no pretibial edema Abd: normal BS, soft, non-tender Ext: no cyanosis, no calf tenderness Neuro: A&O x 3, does have some delayed response to answers, no focal deficits noted, normal affect Skin: warm, dry, multiple scattered ecchymosis Principal Diagnosis Epistaxis Discharge Data Allergies Allergy/AdvReac Type Severity Reaction Status Date / Time Cipro Allergy Intermediate RASH Verified 04/19/18 05:27 ciprofloxacin Allergy Intermediate RASH Verified 01/09/20 19:52 metronidazole Allergy Intermediate RASH Verified 01/09/20 19:52 cefuroxime Allergy Unknown RASH Verified 01/09/20 19:52 nitrofurantoin Allergy Unknown UKN Verified 01/09/20 19:52 alendronate sodium AdvReac Intermediate Gastrointestinal Verified 01/09/20 22:55 [From Fosamax] Upset liothyronine AdvReac Mild RAPID Verified 01/09/20 19:52 HEART RATE Consultations 01/09/20 20:51 Consult Otolaryngology (Head and Neck) Stat ED Decision to Admit Stat 01/09/20 22:43 Consult Case Management - Discharge Planning Routine Consult Otolaryngology (Head and Neck) Routine Procedures Performed Operation Date: 01/10/20 11:20 Actual Procedures p Endoscopic Cautery and Packing(Bilateral) - Yashira Knowles MD CXR: Mild cardiomegaly. Otherwise negative study. Hospital Course (1) Epistaxis: Patient is an 84 yr female with H/O CAD s/p stent, aortic stenosis s/o TAVR, HTN, HLD, hypothyroidism, h/o PE and DVT not on anticoagulation secondary to retroperitoneal bleed, H/O IVC filter, h/o AAA repair, CKD IV, high-grade AV block s/p pacemaker presented to ER with complaint of epistaxis. Epistaxis S/P Endoscopic Cautery and Packing bilaterally by POD#1 No Coagulopathy Held Aspirin, Plavix Plan to restart plavix today: Patient prefers to wait until tomorrow Continue Prophylactic Augmentin Appreciate ENT help Diarrhea H/O IBS Will check stool for c diff if reoccurs (2) CAD (coronary artery disease): S/P stent in 2013 Continue metoprolol, statin Hold aspirin and Plavix for now (3) HTN (hypertension): Stable Continue amlodipine, metoprolol (4) Aortic stenosis: Status post TAVR in 2018 (5) Complete heart block: History of high-grade AV block s/p pacemaker (6) Personal history of DVT (deep vein thrombosis): H/O DVT and PE Not on anticoagulation due to retroperitoneal bleed S/P IVC filter (7) CKD (chronic kidney disease), stage IV: Baseline Cr: 1.7-1.9 Monitor renal functions Avoid nephrotoxic agents (8) Hypothyroidism: Continue levothyroxine DVT Px SCDs Re:secondary to epistaxis Code Status Full Code Disposition: Expect to discharge home when stable Total Time Total Time Spent Total Time Spent (In Minutes): 29 minutes Discharge Plan Discharge Items Patient Disposition: Home - Self-Care Reason For Visit: EPISTAXIS Discharge Diagnosis: Epistaxis Activity: Resume your previous activity Exercise/Sports: Gradually increase as tolerated Non-emergency contact: Primary Care Provider Call non-emergency contact if: you have any medication questions, your symptoms worsen, your pain is not controlled, your pain is worsening, your pain is unusual for you, your pain is concerning for you and you have a fever Follow-up/Referrals: Jia Fernandez MD [Physician] - 01/18/20 11:00 am Diet: Heart Healthy and Lactose Intolerant Addtl Attending Provider Instructions: Follow up with your physician on January 18, 2020 at 10:45 AM Follow up with your ENT surgeon as needed Complete the antibiotic course as recommended by your ENT surgeon. If your diarrhea worsens, please call your physician for further recommendatio ns. Seek immediate medical attention if your symptoms (Nose bleeding) reoccur or worsen Pending Studies at Discharge: No Stand-Alone Forms: My [employer]ionic, Smoking Cessation Medications and DC Order Prescriptions: New Lactobacillus acidoph-L.bulgar [Floranex] 1 million cell Tablet 4 tab PO QIDM 10 Days Qty: 160 RF: 0 amoxicillin-pot clavulanate 500-125 mg Tablet 1 tab PO BIDM Qty: 6 RF: 0 Continued aspirin [Aspir-81] 81 mg tablet,delayed release (DR/EC) 81 mg PO DAILY RF: 0 cholecalciferol (vitamin D3) 1,000 unit capsule 1,000 units PO DAILY RF: 0 clopidogrel [Plavix] 75 mg tablet 75 mg PO DAILY RF: 0 lansoprazole [Prevacid] 15 mg capsule,delayed release(DR/EC) 15 mg PO QAM RF: 0 mirtazapine 45 mg tablet 45 mg PO HS RF: 0 nitroglycerin [Nitrostat] 0.4 mg tablet, sublingual 0.4 mg SL DIRECTED PRN (Reason: chest pain) RF: 0 oxycodone 5 mg capsule 5 mg PO DAILY PRN (Reason: pain) RF: 0 rosuvastatin [Crestor] 5 mg tablet 5 mg PO DAILY RF: 0 fluoride (sodium) 1.1 % cream 1 appln DT DAILY RF: 0 amlodipine [Norvasc] 5 mg tablet 2.5 mg PO DAILY RF: 0 amoxicillin 500 mg Capsule 2,000 mg PO DIRECTED PRN (Reason: PRIOR TO DENTAL APPOINTMENTS) RF: 0 prednisone 5 mg Tablet 5 mg PO DAILY RF: 0 metoprolol succinate 25 mg Tablet Extended Release 24 Hr 25 mg PO DAILY RF: 0 cranberry extract 200 mg Capsule 200 mg PO DAILY RF: 0 melatonin 10 mg Tablet 20 mg PO HS RF: 0 Lac-Hydrin Five 5 % Lotion 1 applic TOPICAL DAILY RF: 0 tramadol 50 mg tablet 50 mg PO Q8H PRN (Reason: Pain) RF: 0 cetirizine 10 mg Tablet 10 mg PO DAILY RF: 0 fluticasone propionate [Flonase Allergy Relief] 50 mcg/actuation [place],Suspension 2 spray INTRANASAL DAILY PRN (Reason: Nasal Congestion) RF: 0 levothyroxine 50 mcg tablet 50 mcg PO DAILY RF: 0 Discharge Orders: Discharge Order (Routine); Ordered 01/11/20 Ordered By: Rogers Tidwell/Other Patient Handouts: Nosebleed Admission Data Admit Date/Time: 01/09/20 21:32 Attending Provider: Rogers Valentino Admit Provider: Nilson Steven Primary Care Provider: PCP,NO Other Providers: Yashira Knolwes ; Darron Mosley Other Interventions: Discharge Summary Assessment (RN) Last Done: 01/11/20 13:26 DC Date/Time DO NOT enter until pt leaves facility: 01/11/20 14:01
[2020-01-11] MEDS ORDERED: LACTOBACILLUS ACIDOPHILUS (FLORANEX) TAB PO SCH (17:00)
== END 2020-01-11 14:01 | disposition home or self-care (01) ==
LOC: ED 18:40 → 2W 18:40 → SUATTDRO 21:32 → 2W 22:28

== ENCOUNTER 2020-04-16 11:52 | Observation (INO) ==
--- NOTE | 2020-04-16 12:25 | Emergency Department Note ---
Impression & Plan SOB (shortness of breath), Abnormal ECG, Complete left bundle branch block ED Provider Note NAME: JENN CASTILLO AGE: 85 SEX: F : 1935 ARRIVES VIA: Ambulance INFORMANT: Patient, ED PROVIDER(S): Dwayne Montoya DO CHIEF COMPLAINT: Shortness of breath HPI: The patient is an 85-year-old female who presented to the emergency [facility] for an evaluation of shortness of breath. The patient states that she has had no cough. She denies having any fever. She denies having any black or bloody bowel movements. She is noticed increasing shortness of breath over the last few days. She is not seen her primary care physician for the symptoms. She denies having any decreased urine output lower extremity swelling or lower extremity pain. The patient does have a wrap to her left leg that she states is treating a chronic wound of her left leg. She denies having any nausea or vomiting. She is had no headaches or unilateral weakness. The patient received IV fluids prior to arrival for hypotension. ROS: See above HPI for pertinent positives & negatives. A total of 10 systems reviewed and were otherwise negative. PAST MEDICAL HISTORY: See Below PAST SURGICAL HISTORY: See Below FAMILY HISTORY: See Below SOCIAL HISTORY: See Below HOME MEDICATIONS: See Below ALLERGIES: See Below VITALS: See Below PHYSICAL EXAMINATION: GENERAL: The patient is awake and alert. She is very anxious appearing but appears to be comfortable. EYES: The conjunctivae are clear. The pupils are round and reactive. EARS, NOSE, MOUTH AND THROAT: The nose is without any evidence of any deformity. NECK: The neck is nontender and supple. RESPIRATORY: Normal respiratory effort is noted there is no evidence of wheezing rhonchi or rales CARDIOVASCULAR: Regular rate and rhythm was noted to auscultation. Systolic m urmur was suggested. GASTROINTESTINAL: The abdomen is soft. Abdomen is nontender. MUSCULOSKELETAL/EXTREMITIES: There is no evidence of gross deformity full range of motion is noted in the hips and shoulders. SKIN: There is no obvious evidence of any rash. No significant pedal edema or calf tenderness was noted but the patient does have a wound wrap to the left lower extremity. NEUROLOGIC: Patient is awake alert and oriented x. MEDICAL DECISION MAKING: The patient is an 85-year-old female who presented to the emergency department for an evaluation of difficulty breathing. The patient was having dyspnea on exertion. Lung sounds were not specifically abnormal chest x-ray did not appear to be consistent with CHF. She was not overly anemic. For this reason further studies were obtained to ensure there was no signs of pulmonary venous thromboem bolic disease. CT of the chest did not appear to be consistent with pulmonary embolism. I discussed the patient's laboratory and radiographic studies with her. She was still having significant shortness of breath especially with any exertion. For this reason I [facility] have agreed to evaluate the patient in the emergency department for further management and disposition. Triage Nursing notes reviewed. Prior medical records reviewed Vital Signs: reviewed and remarkable for tachycardia and hypotension. Differential diagnosis: Reactive airway disease, pneumonia, pneumothorax, COPD, CHF, infections, cardiac ischemia, pulmonary embolism, musculoskeletal, gastrointestinal, as well as other pathologies. ER treatment provided: See below Diagnostics interpreted by me: ECG: EKG was obtained in the emergency department. My interpretation is sinus tachycardia at 107 bpm. Left bundle branch block pattern was noted. LVH was noted by voltage criteria. This was compared to a tracing from January 182018. The left bundle branch block pattern appears new. Cardiac Monitoring: An order was placed for continuous cardiac monitoring. The monitor shows a rate of 105 with sinus tachycardia rhythm. Laboratory studies: As stated above and show below. Imaging studies: See below Consultation(s): 1610: I discussed this case with Candy who [facility] They will evaluate the patient in the emergency department for further management and disposition. ED COURSE: Procedures: none PDMP:reviewed and no issues Critical Care: None Past Med/Surg History Medical History Aftercare following right hip joint replacement surgery Angina pectoris, unspecified Cardiac catheterization as the cause of abnormal reaction of the patient, or of later complication, without mention of misadventure at the time of the procedure Cataracts, bilateral DVT (deep venous thrombosis) Hx of skin cancer, basal cell Hx of squamous cell carcinoma Left bundle branch block Pacemaker Peripheral neuropathy PVD (peripheral vascular disease) Renal disease Sinus tachycardia Wears dentures Surgical History H/O aortic aneurysm repair H/O heart artery stent History of cataract removal with insertion of prosthetic lens Family History Other Heart disease Social History Smoking Status: Never smoker Hx Alcohol Use: Yes Alcohol type: wine Hx Substance Use: No Preferred Language: Kyrgyz Communication Ability: Effective Magician/Illusionist Required: No Beliefs That Will Affect Care: None marital status: Current Living Situation: Spouse current occupation: retired Feels Safe at Home: Yes Allergies Allergies Allergy/AdvReac Type Severity Reaction Status Date / Time Cipro Allergy Intermediate RASH Verified 04/19/18 05:27 ciprofloxacin Allergy Intermediate RASH Verified 04/07/20 11:40 metronidazole Allergy Intermediate RASH Verified 04/07/20 11:40 cefuroxime Allergy Unknown RASH Verified 04/07/20 11:40 nitrofurantoin Allergy Unknown UKN Verified 04/07/20 11:40 alendronate sodium AdvReac Intermediate Gastrointestinal Verified 04/07/20 11:40 [From Fosamax] Upset liothyronine AdvReac Mild RAPID Verified 04/07/20 11:40 HEART RATE Home Meds Home Medications Medication Instructions Recorded Confirmed aspirin 81 mg tablet,delayed 81 mg PO DAILY 05/01/18 04/16/20 release cholecalciferol (vitamin D3) 25 1,000 units PO DAILY 05/01/18 04/16/20 mcg (1,000 unit) capsule clopidogrel 75 mg tablet 75 mg PO DAILY 05/01/18 04/16/20 fluoride (sodium) 1.1 % dental 1 appln DT DAILY gm 05/01/18 04/16/20 cream lansoprazole 15 mg capsule,delayed 15 mg PO QAM cap 05/01/18 04/16/20 release mirtazapine 45 mg tablet 45 mg PO HS tab 05/01/18 04/16/20 nitroglycerin 0.4 mg sublingual 0.4 mg SL DIRECTED PRN 05/01/18 04/16/20 tablet rosuvastatin 5 mg tablet 5 mg PO DAILY 05/01/18 04/16/20 Lac-Hydrin Five 1 applic TOPICAL DAILY 11/28/18 04/16/20 amoxicillin 2,000 mg PO DIRECTED PRN 11/28/18 04/16/20 cranberry extract 200 mg PO DAILY 11/28/18 04/16/20 melatonin 20 mg PO HS 11/28/18 04/16/20 metoprolol succinate 25 mg PO DAILY 11/28/18 04/16/20 prednisone 5 mg PO DAILY 11/28/18 04/16/20 amlodipine [Norvasc] 2.5 mg PO DAILY 01/16/19 04/16/20 cetirizine 10 mg PO DAILY 01/09/20 04/16/20 fluticasone propionate [Flonase 2 spray INTRANASAL DAILY PRN 01/09/20 04/16/20 Allergy Relief] levothyroxine 50 mcg PO DAILY 01/09/20 04/16/20 tramadol 50 mg PO Q8H PRN 01/09/20 04/16/20 citalopram 10 mg PO DAILY 04/16/20 04/16/20 Results & Data (ED) Vital Signs Vital Signs - 24 hr 04/16/20 12:03 04/16/20 12:05 04/16/20 12:11 Temperature 36.9 C Temperature Source Oral Pulse Rate 111 H 103 H Pulse Rate [Apical] Pulse Rate from SpO2 Sensor Respiratory Rate 22 22 Respiratory Effort / Characteristics Non-Labored Spontaneous Respiratory Depth Normal Respiratory Pattern Regular Blood Pressure 112/91 Blood Pressure [Right Arm] Blood Pressure Mean 98 Blood Pressure Mean [Right Arm] Pulse Oximetry 94 94 94 Oxygen Delivery Method Room Air Room Air Room Air Sepsis Recent Fever Within 48 Hours No Sepsis New/Unexplained Change in Mental Status No Sepsis Action Taken by Nursing Physician Notified 04/16/20 12:13 04/16/20 12:14 04/16/20 12:30 Temperature Temperature Source Pulse Rate 93 H Pulse Rate [Apical] 107 H Pulse Rate from SpO2 Sensor 97 H Respiratory Rate 22 22 24 Respiratory Effort / Characteristics Non-Labored Spontaneous Non-Labored Spontaneous Respiratory Depth Normal Respiratory Pattern Regular Blood Pressure 101/69 Blood Pressure [Right Arm] 112/91 Blood Pressure Mean 71 Blood Pressure Mean [Right Arm] 98 Pulse Oximetry 96 95 93 Oxygen Delivery Method Room Air Room Air Sepsis Recent Fever Within 48 Hours Sepsis New/Unexplained Change in Mental Status Sepsis Action Taken by Nursing 04/16/20 13:00 04/16/20 13:33 04/16/20 14:12 Temperature Temperature Source Pulse Rate 99 H 109 H 93 H Pulse Rate [Apical] Pulse Rate from SpO2 Sensor 108 H 90 Respiratory Rate 23 21 19 Respiratory Effort / Characteristics Respiratory Depth Respiratory Pattern Blood Pressure 99/63 L 119/65 114/69 Blood Pressure [Right Arm] Blood Pressure Mean 79 81 80 Blood Pressure Mean [Right Arm] Pulse Oximetry 94 97 94 Oxygen Delivery Method Sepsis Recent Fever Within 48 Hours Sepsis New/Unexplained Change in Mental Status Sepsis Action Taken by Nursing 04/16/20 14:30 04/16/20 14:31 04/16/20 15:00 Temperature Temperature Source Pulse Rate 96 H 94 H 98 H Pulse Rate [Apical] Pulse Rate from SpO2 Sensor 96 H 94 H Respiratory Rate 21 18 21 Respiratory Effort / Characteristics Respiratory Depth Respiratory Pattern Blood Pressure 105/63 105/69 Blood Pressure [Right Arm] Blood Pressure Mean 69 85 Blood Pressure Mean [Right Arm] Pulse Oximetry 97 96 Oxygen Delivery Method Sepsis Recent Fever Within 48 Hours Sepsis New/Unexplained Change in Mental Status Sepsis Action Taken by Nursing 04/16/20 15:01 04/16/20 15:30 04/16/20 15:31 Temperature Temperature Source Pulse Rate 96 H 98 H 97 H Pulse Rate [Apical] Pulse Rate from SpO2 Sensor 95 H 99 H 97 H Respiratory Rate 13 19 20 Respiratory Effort / Characteristics Respiratory Depth Respiratory Pattern Blood Pressure Blood Pressure [Right Arm] Blood Pressure Mean Blood Pressure Mean [Right Arm] Pulse Oximetry 98 98 97 Oxygen Delivery Method Sepsis Recent Fever Within 48 Hours Sepsis New/Unexplained Change in Mental Status Sepsis Action Taken by Nursing 04/16/20 16:00 04/16/20 16:01 04/16/20 16:30 Temperature Temperature Source Pulse Rate 100 H 100 H 101 H Pulse Rate [Apical] Pulse Rate from SpO2 Sensor 87 100 H Respiratory Rate 19 21 19 Respiratory Effort / Characteristics Respiratory Depth Respiratory Pattern Blood Pressure 119/76 109/65 Blood Pressure [Right Arm] Blood Pressure Mean 93 82 Blood Pressure Mean [Right Arm] Pulse Oximetry 91 98 Oxygen Delivery Method Sepsis Recent Fever Within 48 Hours Sepsis New/Unexplained Change in Mental Status Sepsis Action Taken by Nursing 04/16/20 16:31 04/16/20 17:00 04/16/20 17:01 Temperature Temperature Source Pulse Rate 100 H 102 H 101 H Pulse Rate [Apical] Pulse Rate from SpO2 Sensor 99 H Respiratory Rate 24 21 17 Respiratory Effort / Characteristics Respiratory Depth Respiratory Pattern Blood Pressure 106/75 Blood Pressure [Right Arm] Blood Pressure Mean 84 Blood Pressure Mean [Right Arm] Pulse Oximetry 100 Oxygen Delivery Method Sepsis Recent Fever Within 48 Hours Sepsis New/Unexplained Change in Mental Status Sepsis Action Taken by Care Home Medications Current Medication List: was personally reviewed by me Laboratory Data Attestation: I reviewed the patient's lab results. Result diagrams: 04/16/20 12:21 04/16/20 12:21 Lab Results 04/16/20 04/16/20 04/16/20 Range/Units 12:21 12:21 12:21 WBC 5.44 (4.8-10.8) K/uL RBC 5.00 (4.2-5.4) M/uL Hgb 14.1 (12.0-16.0) g/dL Hct 43.7 (37-47) % MCV 87.4 (80-100) fL MCH 28.2 (25-34) pg MCHC 32.3 (32-36) g/dL RDW Std Deviation 52.9 H (36.4-46.3) fL RDW Coeff of Anatoly 16.5 H (11.5-14.5) % Plt Count 150 (130-400) K/uL MPV 11.2 H (7.4-10.4) fL Immature Gran % (Auto) 0.2 % Neut % (Auto) 68.6 % Lymph % (Auto) 17.8 % Anson % (Auto) 9.9 % Eos % (Auto) 2.9 % Baso % (Auto) 0.6 % Neut # (Auto) 3.73 (1.4-6.5) K/uL Lymph # (Auto) 0.97 L (1.2-3.4) K/uL Anson # (Auto) 0.54 (0.11-0.59) K/uL Eos # (Auto) 0.16 (0-0.5) K/uL Baso # (Auto) 0.03 (0-0.2) K/uL Immature Gran # (Auto) 0.01 (0.00-0.02) K/uL PT 10.9 (9.0-12.0) Seconds INR 1.0 (0.9-1.1) APTT 25.3 (21.0-31.0) Seconds PTT Ratio 0.9 D-Dimer 7510 H* (0-500) ug/L FEU Sodium (136-145) mmol/L Potassium (3.5-5.1) mmol/L Chloride (98-107) mmol/L Carbon Dioxide (21-32) mmol/L Anion Gap (3-11) BUN (7-18) mg/dl Creatinine (0.6-1.2) mg/dl Est Cr Clr Drug Dosing ml/min Est GFR ( Amer) Est GFR (Non-Af Amer) BUN/Creatinine Ratio (10-20) Glucose (70-99) mg/dl Lactate (0.4-2.0) mmol/L Calcium (8.5-10.1) mg/dl Magnesium (1.8-2.4) mg/dl Total Bilirubin (0.2-1) mg/dl AST (15-37) U/L ALT (12-78) U/L Alkaline Phosphatase (45-117) U/L Troponin I (0-0.045) ng/ml Total Protein (6.4-8.2) gm/dl Albumin (3.4-5.0) gm/dl Globulin (2.5-4.0) gm/dl Albumin/Globulin Ratio (0.9-2) Procalcitonin < 0.05 (0-0.5) ng/ml 04/16/20 04/16/20 Range/Units 12:21 12:32 WBC (4.8-10.8) K/uL RBC (4.2-5.4) M/uL Hgb (12.0-16.0) g/dL Hct (37-47) % MCV (80-100) fL MCH (25-34) pg MCHC (32-36) g/dL RDW Std Deviation (36.4-46.3) fL RDW Coeff of Anatoly (11.5-14.5) % Plt Count (130-400) K/uL MPV (7.4-10.4) fL Immature Gran % (Auto) % Neut % (Auto) % Lymph % (Auto) % Anson % (Auto) % Eos % (Auto) % Baso % (Auto) % Neut # (Auto) (1.4-6.5) K/uL Lymph # (Auto) (1.2-3.4) K/uL Anson # (Auto) (0.11-0.59) K/uL Eos # (Auto) (0-0.5) K/uL Baso # (Auto) (0-0.2) K/uL Immature Gran # (Auto) (0.00-0.02) K/uL PT (9.0-12.0) Seconds INR (0.9-1.1) APTT (21.0-31.0) Seconds PTT Ratio D-Dimer (0-500) ug/L FEU Sodium 141 (136-145) mmol/L Potassium 3.8 (3.5-5.1) mmol/L Chloride 113 H (98-107) mmol/L Carbon Dioxide 23 (21-32) mmol/L Anion Gap 5.0 (3-11) BUN 33 H (7-18) mg/dl Creatinine 1.82 H (0.6-1.2) mg/dl Est Cr Clr Drug Dosing 18.7 ml/min Est GFR ( Amer) 29.3 Est GFR (Non-Af Amer) 25.2 BUN/Creatinine Ratio 17.9 (10-20) Glucose 100 H (70-99) mg/dl Lactate 1.0 (0.4-2.0) mmol/L Calcium 8.4 L (8.5-10.1) mg/dl Magnesium 2.2 (1.8-2.4) mg/dl Total Bilirubin 0.3 (0.2-1) mg/dl AST 34 (15-37) U/L ALT 38 (12-78) U/L Alkaline Phosphatase 89 (45-117) U/L Troponin I < 0.015 (0-0.045) ng/ml Total Protein 5.8 L (6.4-8.2) gm/dl Albumin 2.6 L (3.4-5.0) gm/dl Globulin 3.2 (2.5-4.0) gm/dl Albumin/Globulin Ratio 0.8 L (0.9-2) Procalcitonin (0-0.5) ng/ml Administered Medications Discontinued Medications Ioversol (Optiray 320 125ml) 120 ml IV ONCE ONE Stop: 04/16/20 13:52 Last Admin: 04/16/20 13:51 Dose: 120 ml Documented by: [id number] Imaging Data Radiologist's Impression: CT angio chest PE protocol CT DOSE: 300.81 mGy.cm HISTORY: 85 years-old Female with PE. Acute shortness of breath with fatigue TECHNIQUE: Multiple CTA images of the chest were obtained after the intravenous administration of 120 ml Optiray 320. Coronal and sagittal MIPS were obtained from the axial data set and were submitted for review. All measurements were obtained according to NASCET criteria. A dose lowering technique was utilized adhering to the principles of ALARA. COMPARISON: Chest radiograph of same day, chest CT 12/05/2015 FINDINGS: CTA: Mild cardiomegaly with left subclavian pacer. Trace pericardial effusion. Extensive coronary artery calcifications. Aortic valvular endograft. Fusiform dilation of the ascending thoracic aorta, 5.2 x 5.4 cm (previously 4.3 x 4.3 cm). No dissection or evidence of aneurysm rupture. There is no mediastinal hematoma. Extensive calcified plaque of the thoracic aortic arch. Descending thoracic aortic tortuosity. Dilation of the distal descending thoracic aorta measures up to 2.9 cm, image 71 series 4. This previously measured approximately 2.5 cm on comparison. There is suboptimal opacification of the descending thoracic aorta secondary to contrast bolus timing. Celiac trunk stent. The pulmonary arterial tree is opacified to the level of the segmental branches and demonstrates no filling defects to suggest thromboembolic disease. CT CHEST: There are a few subcentimeter thyroid nodules present. No adenopathy. Small left and trace right pleural effusions. No pneumothorax or overt pulmonary edema. Mild traction bronchiectasis of the lung bases with areas of linear pleural parenchymal scarring. Pulmonary cystic changes of the right lung base. Areas of mucous plugging are noted within the right lung base. There is mild subsegmental bibasilar atelectasis. There is no airspace consolidation typical for pneumonia. There is mild diffuse esophageal wall thickening. Moderate sized hiatal hernia. Cortical thinning of the left greater than right kidneys. No acute process of the imaged upper abdomen. Soft tissues are unremarkable. Degenerative changes of the shoulders and spine. No acute fracture identified. IMPRESSION: 1. No evidence of pulmonary thromboembolic disease. 2. Cardiomegaly with aortic valvular endograft. Fusiform dilation of the ascending thoracic aorta measuring 5.2 x 5.4 cm has increased in size from the comparison 2016 study. No dissection. 3. Mild pleural parenchymal scarring of the lung bases with right lung base cystic change and mild traction bronchiectasis with mucous plugging. 4. Small left and trace right pleural effusions. 5. Left lung base opacities suggest probable atelectasis. 6. Moderate sized hiatal hernia. ACT 112: Negative or not required by law. The above report was generated using voice recognition software. It may contain grammatical, syntax or spelling errors. Electronically signed by: Tayo Osorio M.D. 04/16/2020 2:27 PM Dictated: 04/16/20 1414 Transcribed: 04/16/20 1414 XR chest 1V portable CLINICAL HISTORY: SEPSIS dyspnea COMPARISON STUDY: 01/09/2020 FINDINGS: Fixed hiatal hernia. Mesh stent previously described. Lungs are considered clear. No focal infiltrate. IMPRESSION: Hiatal hernia. Lungs are grossly clear. No acute process. ACT 112: Negative or not required by law. The above report was generated using voice recognition software. It may contain grammatical, syntax or spelling errors. Electronically signed by: Walter Mortensen M.D. 04/16/2020 12:33 PM Dictated: 04/16/20 1231 Transcribed: 04/16/20 1231 Blood Pressure Blood Pressure Findings: Low blood pressure Discharge Plan Visit Data Chief Complaint: Shortness of Breath/Dyspnea ED Provider: Dwayne Montoya Discharge Problem: SOB (shortness of breath), Abnormal ECG, Complete left bundle branch block Patient Disposition: Admitted As Inpatient Condition: Good Discharge Instructions Interventions: ED Discharge Assessment Last Done: 04/16/20 20:38
--- NOTE | 2020-04-16 12:34 | XRay Report ---
XR chest 1V portable CLINICAL HISTORY: SEPSIS dyspnea COMPARISON STUDY: 01/09/2020 FINDINGS: Fixed hiatal hernia. Mesh stent previously described. Lungs are considered clear. No focal infiltrate. IMPRESSION: Hiatal hernia. Lungs are grossly clear. No acute process. ACT 112: Negative or not required by law. The above report was generated using voice recognition software. It may contain grammatical, syntax or spelling errors. Electronically signed by: Walter Mortensen M.D. 04/16/2020 12:33 PM
[2020-04-16 12:57] LABS: Basophils # (auto) 0.03 K/uL (0-0.2); Basophils % (auto) 0.6 %; Eosinophils # (auto) 0.16 K/uL (0-0.5); Eosinophils % (auto) 2.9 %; Hematocrit (blood only) 43.7 % (37-47); Hemoglobin 14.1 g/dL (12.0-16.0); Immature Granulocytes # (auto) 0.01 K/uL (0.00-0.02); Immature Granulocytes % (auto) 0.2 %; Lymphocytes # (auto) 0.97 K/uL (1.2-3.4); Lymphocytes % (auto) 17.8 %; Mean Corpuscular Hemoglobin 28.2 pg (25-34); Mean Corpuscular Hgb Conc 32.3 g/dL (32-36); Mean Corpuscular Volume 87.4 fL (80-100); Mean Platelet Volume 11.2 fL (7.4-10.4); Monocytes # (auto) 0.54 K/uL (0.11-0.59); Monocytes % (auto) 9.9 %; Neutrophils # (auto) 3.73 K/uL (1.4-6.5); Neutrophils % (auto) 68.6 %; Platelet Count 150 K/uL (130-400); RDW Coefficient of Variation 16.5 % (11.5-14.5); RDW Standard Deviation 52.9 fL (36.4-46.3); White Blood Count 5.44 K/uL (4.8-10.8)
[2020-04-16 12:59] LABS: Alanine Aminotransferase 38 U/L (12-78); Albumin Level 2.6 gm/dl (3.4-5.0); Aspartate Aminotransferase 34 U/L (15-37); BUN Creatinine Ratio 17.9 (10-20); Blood Urea Nitrogen 33 mg/dl (7-18); Calcium 8.4 mg/dl (8.5-10.1); Carbon Dioxide 23 mmol/L (21-32); Chloride 113 mmol/L (98-107); Creatinine Clr Calc Pharmacy 18.7 ml/min; Est GFR (African American) 29.3; Est GFR (Non-African American) 25.2; Glucose 100 mg/dl (70-99); Magnesium 2.2 mg/dl (1.8-2.4); Partial Thromboplastin Ratio 0.9; Partial Thromboplastin Time 25.3 Seconds (21.0-31.0); Potassium 3.8 mmol/L (3.5-5.1); Prothrombin Time 10.9 Seconds (9.0-12.0); Sodium 141 mmol/L (136-145)
[2020-04-16 13:02] LABS: D Dimer 7510 ug/L FEU (0-500)
[2020-04-16 13:03] LABS: Albumin Globulin Ratio 0.8 (0.9-2); Alkaline Phosphatase 89 U/L (45-117); Bilirubin,Total 0.3 mg/dl (0.2-1); Globulin 3.2 gm/dl (2.5-4.0); Total Protein 5.8 gm/dl (6.4-8.2); Troponin I < 0.015 ng/ml (0-0.045)
[2020-04-16] MEDS ORDERED: OPTIRAY 320 125ml IV ONE (13:51)
--- NOTE | 2020-04-16 14:29 | CT Scan Report ---
CT angio chest PE protocol CT DOSE: 300.81 mGy.cm HISTORY: 85 years-old Female with PE. Acute shortness of breath with fatigue TECHNIQUE: Multiple CTA images of the chest were obtained after the intravenous administration of 120 ml Optiray 320. Coronal and sagittal MIPS were obtained from the axial data set and were submitted for review. All measurements were obtained according to NASCET criteria. A dose lowering technique w as utilized adhering to the principles of ALARA. COMPARISON: Chest radiograph of same day, chest CT 12/05/2015 FINDINGS: CTA: Mild cardiomegaly with left subclavian pacer. Trace pericardial effusion. Extensive coronary artery c alcifications. Aortic valvular endograft. Fusiform dilation of the ascending thoracic aorta, 5.2 x 5. 4 cm (previously 4.3 x 4.3 cm). No dissection or evidence of aneurysm rupture. There is no mediastina l hematoma. Extensive calcified plaque of the thoracic aortic arch. Descending thoracic aortic tortuo sity. Dilation of the distal descending thoracic aorta measures up to 2.9 cm, image 71 series 4. This previously measured approximately 2.5 cm on comparison. There is suboptimal opacification of the aly cending thoracic aorta secondary to contrast bolus timing. Celiac trunk stent. The pulmonary arterial tree is opacified to the level of the segmental branches and demonstrates no f illing defects to suggest thromboembolic disease. CT CHEST: There are a few subcentimeter thyroid nodules present. No adenopathy. Small left and trace right pleu ral effusions. No pneumothorax or overt pulmonary edema. Mild traction bronchiectasis of the lung bas es with areas of linear pleural parenchymal scarring. Pulmonary cystic changes of the right lung base . Areas of mucous plugging are noted within the right lung base. There is mild subsegmental bibasilar atelectasis. There is no airspace consolidation typical for pneumonia. There is mild diffuse esophageal wall thickening. Moderate sized hiatal hernia. Cortical thinning of the left greater than right kidneys. No acute process of the imaged upper abdomen. Soft tissues are u nremarkable. Degenerative changes of the shoulders and spine. No acute fracture identified. IMPRESSION: 1. No evidence of pulmonary thromboembolic disease. 2. Cardiomegaly with aortic valvular endograft. Fusiform dilation of the ascending thoracic aorta marcus suring 5.2 x 5.4 cm has increased in size from the comparison 2016 study. No dissection. 3. Mild pleural parenchymal scarring of the lung bases with right lung base cystic change and mild tr action bronchiectasis with mucous plugging. 4. Small left and trace right pleural effusions. 5. Left lung base opacities suggest probable atelectasis. 6. Moderate sized hiatal hernia. ACT 112: Negative or not required by law. The above report was generated using voice recognition software. It may contain grammatical, syntax o r spelling errors. Electronically signed by: Tayo Osorio M.D. 04/16/2020 2:27 PM
--- NOTE | 2020-04-16 17:39 | History & Physical Report ---
Date of Service April 16, 2020 Assessment & Plan (1) Exertional dyspnea: 85 y/o female with history of CAD, CHF Diastolic Type, Mitral and Aortic Regurgitation, s/p TAVR, HTN, PE s/p IVC filter, history of retroperitoneal bleed, CKD 4, FM, presenting with progressive shortness of breath x 2 weeks. EXERTIONAL DYSPNEA check echo and pacemaker to r/o progression of valvular disease, CHF, arrhythmia from underlying bronchiectasis, atelectasis and mucus plug? Nebs, Mucomyst, Pulmonary consult COVID screen ELEVATED D DIMER CT chest: no PE has history of PE s/p IVC Filter check Doppler of the LE HISTORY OF CAD denies chest pain trop negative EKG no signs of acute ischemia continue usual ASA, Plavix, Metoprolol CHF DIASTOLIC TYPE patient on the dry side received IV fluids in the er HISTORY OF MV, AV REGURGITATION, S/P TAVR management per #1 HYPERTENSION hold Amlodipine for marginal BP CKD 4 crea at baseline CHRONIC LEFT LOWER EXTREMITY WOUND follows at wound care center DVT prophylaxis SCDs on the right leg Code Status Full Code per patient Disposition lives at home with her will order PT/OT evaluation may need 2 step exercise test prior to discharge History of Present Illness 85 y/o female with history of CAD, CHF Diastolic Type, Mitral and Aortic Regurgitation, s/p TAVR, HTN, PE s/p IVC filter, history of retroperitoneal bleed, CKD 4, FM, presenting with progressive shortness of breath x 2 weeks. Patient reports 2 week history of dyspnea with minimal exertion. She denies having cough, sputum production, fever/chills. She also denies chest pain, palpitations, dizziness, syncope/pre-syncope. Apparently, patient was hypotensive en route and received IV fluids. EKG sinus tachycardia Troponin negative CT Angio chest: IMPRESSION: 1. No evidence of pulmonary thromboembolic disease. 2. Cardiomegaly with aortic valvular endograft. Fusiform dilation of the ascending thoracic aorta measuring 5.2 x 5.4 cm has increased in size from the comparison 2016 study. No dissection. 3. Mild pleural parenchymal scarring of the lung bases with right lung base cystic change and mild traction bronchiectasis with mucous plugging. 4. Small left and trace right pleural effusions. 5. Left lung base opacities suggest probable atelectasis. 6. Moderate sized hiatal hernia. On exam, patient seen resting in bed, comfortable, not in distress. States she easily got short of breath moving to the toilet. While at rest, she denies having active shortness of breath, chest pain, palpitations, dizziness. No other symptoms. Primary Care Provider: Jia Fernandez MD Allergies Allergy/AdvReac Type Severity Reaction Status Date / Time Cipro Allergy Intermediate RASH Verified 04/19/18 05:27 ciprofloxacin Allergy Intermediate RASH Verified 04/07/20 11:40 metronidazole Allergy Intermediate RASH Verified 04/07/20 11:40 cefuroxime Allergy Unknown RASH Verified 04/07/20 11:40 nitrofurantoin Allergy Unknown UKN Verified 04/07/20 11:40 alendronate sodium AdvReac Intermediate Gastrointestinal Verified 04/07/20 11:40 [From Fosamax] Upset liothyronine AdvReac Mild RAPID Verified 04/07/20 11:40 HEART RATE Home Medications Home Medications Medication Instructions Recorded Confirmed Type aspirin 81 mg tablet,delayed 81 mg PO DAILY 05/01/18 04/16/20 History release cholecalciferol (vitamin D3) 25 1,000 units PO DAILY 05/01/18 04/16/20 History mcg (1,000 unit) capsule clopidogrel 75 mg tablet 75 mg PO DAILY 05/01/18 04/16/20 History fluoride (sodium) 1.1 % dental 1 appln DT DAILY gm 05/01/18 04/16/20 History cream lansoprazole 15 mg capsule,delayed 15 mg PO QAM cap 05/01/18 04/16/20 History release mirtazapine 45 mg tablet 45 mg PO HS tab 05/01/18 04/16/20 History nitroglycerin 0.4 mg sublingual 0.4 mg SL DIRECTED PRN 05/01/18 04/16/20 History tablet rosuvastatin 5 mg tablet 5 mg PO DAILY 05/01/18 04/16/20 History Lac-Hydrin Five 1 applic TOPICAL DAILY 11/28/18 04/16/20 History amoxicillin 2,000 mg PO DIRECTED PRN 11/28/18 04/16/20 History cranberry extract 200 mg PO DAILY 11/28/18 04/16/20 History melatonin 20 mg PO HS 11/28/18 04/16/20 History metoprolol succinate 25 mg PO DAILY 11/28/18 04/16/20 History prednisone 5 mg PO DAILY 11/28/18 04/16/20 History amlodipine [Norvasc] 2.5 mg PO DAILY 01/16/19 04/16/20 History cetirizine 10 mg PO DAILY 01/09/20 04/16/20 History fluticasone propionate [Flonase 2 spray INTRANASAL DAILY PRN 01/09/20 04/16/20 History Allergy Relief] levothyroxine 50 mcg PO DAILY 01/09/20 04/16/20 History tramadol 50 mg PO Q8H PRN 01/09/20 04/16/20 History citalopram 10 mg PO DAILY 04/16/20 04/16/20 History Past Med/Surg History Medical History Aftercare following right hip joint replacement surgery Angina pectoris, unspecified Cardiac catheterization as the cause of abnormal reaction of the patient, or of later complication, without mention of misadventure at the time of the procedure Cataracts, bilateral DVT (deep venous thrombosis) Hx of skin cancer, basal cell Hx of squamous cell carcinoma Left bundle branch block Pacemaker Peripheral neuropathy PVD (peripheral vascular disease) Renal disease Sinus tachycardia Wears dentures Surgical History H/O aortic aneurysm repair H/O heart artery stent History of cataract removal with insertion of prosthetic lens Family History Other Heart disease Social History Smoking Status: Never smoker Hx Alcohol Use: Yes Alcohol type: wine Hx Substance Use: No Preferred Language: Estonian Communication Ability: Effective Column Precaster Required: No Beliefs That Will Affect Care: None marital status: Current Living Situation: Spouse current occupation: retired Feels Safe at Home: Yes Review of Systems Review of Systems: All systems reviewed & are unremarkable except as noted in HPI & below Physical Exam Physical Exam: General- oriented x 3, not in distress, speaks in sentences with no effort or accessory muscle use Head- atraumatic Eyes- PERRL, EOMI, anicteric ENT- oropharynx clear Neck- supple, no JVD, no adenopathy, no thyromegaly; carotids +2/2, no bruits appreciated Lungs- diminished but clear to auscultation bilaterally, no rales/wheezes Heart- normal rate, regular rhythm; no murmur, no gallop, no rub appreciated Abdomen- normal bowel sounds, nondistended, soft, nontender, no masses or hepatosplenomegaly Extremities- no pretibial edema, no calf tenderness; peripheral pulses intact left leg: dressing in place- no discharge, bleeding Neuro- alert, oriented x 3; CN 2-12 grossly intact; motor 5/5 bilaterally;sensation 100% on all extremities; no other gross focal neurologic deficits Skin- warm & dry Results & Data Results & Data ([facility]) Vital Signs (Past 12 Hours) Vital Signs Temp Pulse Pulse Resp BP BP Pulse Ox 04/16/20 16:01 100 H 21 98 04/16/20 16:00 100 H 19 119/76 91 04/16/20 15:31 97 H 20 97 04/16/20 15:30 98 H 19 98 04/16/20 15:01 96 H 13 98 04/16/20 15:00 98 H 21 105/69 04/16/20 14:31 94 H 18 96 04/16/20 14:30 96 H 21 105/63 97 04/16/20 14:12 93 H 19 114/69 94 04/16/20 13:33 109 H 21 119/65 97 04/16/20 13:00 99 H 23 99/63 L 94 04/16/20 12:30 93 H 24 101/69 93 04/16/20 12:14 22 95 04/16/20 12:13 107 H 22 112/91 96 04/16/20 12:11 103 H 22 94 04/16/20 12:05 36.9 C 111 H 22 112/91 94 04/16/20 12:03 94 Laboratory Results Laboratory Results - last 24 hr 04/16/20 04/16/20 04/16/20 12:21 12:21 12:21 WBC 5.44 RBC 5.00 Hgb 14.1 Hct 43.7 MCV 87.4 MCH 28.2 MCHC 32.3 RDW Std Deviation 52.9 H RDW Coeff of Anatoly 16.5 H Plt Count 150 MPV 11.2 H Immature Gran % (Auto) 0.2 Neut % (Auto) 68.6 Lymph % (Auto) 17.8 Mobile % (Auto) 9.9 Eos % (Auto) 2.9 Baso % (Auto) 0.6 Neut # (Auto) 3.73 Lymph # (Auto) 0.97 L Mobile # (Auto) 0.54 Eos # (Auto) 0.16 Baso # (Auto) 0.03 Immature Gran # (Auto) 0.01 PT 10.9 INR 1.0 APTT 25.3 PTT Ratio 0.9 D-Dimer 7510 H* Sodium Potassium Chloride Carbon Dioxide Anion Gap BUN Creatinine Est Cr Clr Drug Dosing Est GFR ( Amer) Est GFR (Non-Af Amer) BUN/Creatinine Ratio Glucose Lactate Calcium Magnesium Total Bilirubin AST ALT Alkaline Phosphatase Troponin I Total Protein Albumin Globulin Albumin/Globulin Ratio Procalcitonin < 0.05 04/16/20 04/16/20 12:21 12:32 WBC RBC Hgb Hct MCV MCH MCHC RDW Std Deviation RDW Coeff of Anatoly Plt Count MPV Immature Gran % (Auto) Neut % (Auto) Lymph % (Auto) Mobile % (Auto) Eos % (Auto) Baso % (Auto) Neut # (Auto) Lymph # (Auto) Mobile # (Auto) Eos # (Auto) Baso # (Auto) Immature Gran # (Auto) PT INR APTT PTT Ratio D-Dimer Sodium 141 Potassium 3.8 Chloride 113 H Carbon Dioxide 23 Anion Gap 5.0 BUN 33 H Creatinine 1.82 H Est Cr Clr Drug Dosing 18.7 Est GFR ( Amer) 29.3 Est GFR (Non-Af Amer) 25.2 BUN/Creatinine Ratio 17.9 Glucose 100 H Lactate 1.0 Calcium 8.4 L Magnesium 2.2 Total Bilirubin 0.3 AST 34 ALT 38 Alkaline Phosphatase 89 Troponin I < 0.015 Total Protein 5.8 L Albumin 2.6 L Globulin 3.2 Albumin/Globulin Ratio 0.8 L Procalcitonin Code Status & VTE Plan VTE Prophylaxis Plan VTE Prophylaxis will be ordered: Yes
--- NOTE | 2020-04-16 18:09 | Cardiology Consultation ---
Date of Consultation April 16, 2020 Assessment & Plan (1) Exertional dyspnea: (2) CKD (chronic kidney disease), stage IV: 85-year-old female with complex past cardiac/vascular history including coronary heart disease, with right coronary artery stents placed in 2013, with repeat PCI, drug-eluting stent to the ostial portion of the right coronary artery April,. In 2015 she presented with an acute rupture of an abdominal aortic aneurysm surgical repair by Dr. Mcdonough at [facility], with subsequent prolonged hospital stay DVT prompting IVC filter transient feeding tube. She went on to have a transcatheter aortic valve replacement at [facility] in May 2019 severe symptomatic aortic valve stenosis. She also has a dual-chamber pacemaker placed due to syncope, intermittent high-grade AV block, walk[place] left bundle branch block EKG was in January of this year. Stage IV chronic kidney disease noted with recent creatinine 03/31/2020 as an outpatient at the [email or web address] lab of 2.3, calculated GFR 19 today. Creatinine today 1.82, calculated GFR per meter squared. She apparently received a small dose of IV fluids arrival today due to relative hypotension. Findings on the CT, and her symptoms of 2 weeks of progressive dyspnea on exertion,I supportive care, perhaps supplemental oxygen needed basis as her pulse oximetry had been between 88 and 92% during my conversation with her. Reassess oxygen tomorrow, and if stable, cautious furosemide perhaps 20 mg IV 3 times a day or 4 times per day.Nephrology input may be necessary. A repeat echocardiogram will be obtained tomorrow. With the patient's consent, I spoke to her , Harpreet, with whom I am well acquainted by telephone and updated him regarding the findings and plans thus far. Dr Lassiter to assume rounding 04/17/2020. History of Present Illness History of Present Illness Vandana Raymundo is an 85 year old female seen in cardiology consultation per the request of Dr Mcduffie for the evaluation of shortness of breath. Patient seen in ED room A2. She is well-known to the undersigned as I have followed her as an inpatient and outpatient for several years. She describes to me that she has had 2 weeks of progressive shortness of breath feels a pressure sensation in her abdomen. CT scan was performed revealing no pulmonary embolism. An ascending thoracic aortic aneurysm is noted with a maximum dimension of 5.2 x 5.4 cm. Bilateral pleural effusions noted. EKG performed today 04/16/2020 at 11:57 AM field sinus tachycardia 107 bpm with left bundle branch block and resultant repolarization abnormalities. Compared to the prior tracing dated 01/11/2020 the left bundle branch block is a chronic finding, at that time she was atrial paced with walker river QRS complexes, bundle branch block morphology to that observed today. She is chronically ill in appearance, mild conversational dyspnea noted. No chest discomfort. Cardiac / Vascular History: TAVR# 29 mm Medtronic Evolut R (Pro),05/30/2018 Hypertension Dyslipidemia (CKD stage 4-5) ChronicCAD(07/2014 BMSx2 to the RCA. 04/2018 JASMYN to ostial RCA) [place] filter 2016 10/2009 s/p stenting of SMA Hypothyroidism 10/2015 AAA ruptured repair with a prolonged hospitalization Dual chamber pacemaker forsyncope, and interment high grade AV block Ascending thoracic aortic aneurysm, maximum dimension 5.4 cm, CT, [facility], 04/16/2020 Allergies Allergy/AdvReac Type Severity Reaction Status Date / Time Cipro Allergy Intermediate RASH Verified 04/19/18 05:27 ciprofloxacin Allergy Intermediate RASH Verified 04/07/20 11:40 metronidazole Allergy Intermediate RASH Verified 04/07/20 11:40 cefuroxime Allergy Unknown RASH Verified 04/07/20 11:40 nitrofurantoin Allergy Unknown UKN Verified 04/07/20 11:40 alendronate sodium AdvReac Intermediate Gastrointestinal Verified 04/07/20 11:40 [From Fosamax] Upset liothyronine AdvReac Mild RAPID Verified 04/07/20 11:40 HEART RATE Home Medications Home Medications Medication Instructions Recorded Confirmed Type aspirin 81 mg tablet,delayed 81 mg PO DAILY 05/01/18 04/16/20 History release cholecalciferol (vitamin D3) 25 1,000 units PO DAILY 05/01/18 04/16/20 History mcg (1,000 unit) capsule clopidogrel 75 mg tablet 75 mg PO DAILY 05/01/18 04/16/20 History fluoride (sodium) 1.1 % dental 1 appln DT DAILY gm 05/01/18 04/16/20 History cream lansoprazole 15 mg capsule,delayed 15 mg PO QAM cap 05/01/18 04/16/20 History release mirtazapine 45 mg tablet 45 mg PO HS tab 05/01/18 04/16/20 History nitroglycerin 0.4 mg sublingual 0.4 mg SL DIRECTED PRN 05/01/18 04/16/20 History tablet rosuvastatin 5 mg tablet 5 mg PO DAILY 05/01/18 04/16/20 History Lac-Hydrin Five 1 applic TOPICAL DAILY 11/28/18 04/16/20 History amoxicillin 2,000 mg PO DIRECTED PRN 11/28/18 04/16/20 History cranberry extract 200 mg PO DAILY 11/28/18 04/16/20 History melatonin 20 mg PO HS 11/28/18 04/16/20 History metoprolol succinate 25 mg PO DAILY 11/28/18 04/16/20 History prednisone 5 mg PO DAILY 11/28/18 04/16/20 History amlodipine [Norvasc] 2.5 mg PO DAILY 01/16/19 04/16/20 History cetirizine 10 mg PO DAILY 01/09/20 04/16/20 History fluticasone propionate [Flonase 2 spray INTRANASAL DAILY PRN 01/09/20 04/16/20 History Allergy Relief] levothyroxine 50 mcg PO DAILY 01/09/20 04/16/20 History tramadol 50 mg PO Q8H PRN 01/09/20 04/16/20 History citalopram 10 mg PO DAILY 04/16/20 04/16/20 History Patient History Medical History Aftercare following right hip joint replacement surgery Angina pectoris, unspecified Cardiac catheterization as the cause of abnormal reaction of the patient, or of later complication, without mention of misadventure at the time of the procedure Cataracts, bilateral DVT (deep venous thrombosis) Hx of skin cancer, basal cell Hx of squamous cell carcinoma Left bundle branch block Pacemaker Peripheral neuropathy PVD (peripheral vascular disease) Renal disease Sinus tachycardia Wears dentures Surgical History H/O aortic aneurysm repair H/O heart artery stent History of cataract removal with insertion of prosthetic lens Family History Other Heart disease Social History Smoking Status: Never smoker Hx Alcohol Use: Yes Alcohol type: wine Hx Substance Use: No Preferred Language: Zambian Communication Ability: Effective Electrician Underground Required: No Beliefs That Will Affect Care: None marital status: Current Living Situation: Spouse current occupation: retired Feels Safe at Home: Yes Physical Exam Physical Exam: Temp Pulse Resp BP Pulse Ox 36.9 C 100 H 21 119/76 98 04/16/20 12:05 04/16/20 16:01 04/16/20 16:01 04/16/20 16:00 04/16/20 16:01 Constitutional: + ill appearing and + cachectic Respiratory: Auscultation: + diminished lung sounds (Decreased breath sounds in the bases bilaterally); no crackles, no rales and no wheezes Cardiovascular: Rate/Rhythm: + tachycardic Heart Sounds: + murmur (I/ systolic murmur) Vessels: + JVD Extremities: no edema Gastrointestinal (Abdomen): normal bowel sounds, soft, nontender, no hepatosplenomegaly Skin: Superficial veins with congestion, areas of ecchymosis subcutaneously on her arms Neurologic: PERRL, EOMI, accommodation nl, no face palsy, no dysarthria Results & Data ([facility]) Vital Signs (Past 12 Hours) Vital Signs Temp Pulse Pulse Resp BP BP Pulse Ox 04/16/20 16:01 100 H 21 98 04/16/20 16:00 100 H 19 119/76 91 04/16/20 15:31 97 H 20 97 04/16/20 15:30 98 H 19 98 04/16/20 15:01 96 H 13 98 04/16/20 15:00 98 H 21 105/69 04/16/20 14:31 94 H 18 96 04/16/20 14:30 96 H 21 105/63 97 04/16/20 14:12 93 H 19 114/69 94 04/16/20 13:33 109 H 21 119/65 97 04/16/20 13:00 99 H 23 99/63 L 94 04/16/20 12:30 93 H 24 101/69 93 04/16/20 12:14 22 95 04/16/20 12:13 107 H 22 112/91 96 04/16/20 12:11 103 H 22 94 04/16/20 12:05 36.9 C 111 H 22 112/91 94 04/16/20 12:03 94 Laboratory Results Cardiac Enzymes 04/16/20 Range/Units 12:21 AST 34 (15-37) U/L Troponin I < 0.015 (0-0.045) ng/ml Coagulation 04/16/20 Range/Units 12:21 PT 10.9 (9.0-12.0) Seconds APTT 25.3 (21.0-31.0) Seconds CBC 04/16/20 Range/Units 12:21 WBC 5.44 (4.8-10.8) K/uL RBC 5.00 (4.2-5.4) M/uL Hgb 14.1 (12.0-16.0) g/dL Hct 43.7 (37-47) % Plt Count 150 (130-400) K/uL Neut # (Auto) 3.73 (1.4-6.5) K/uL Lymph # (Auto) 0.97 L (1.2-3.4) K/uL [place] # (Auto) 0.54 (0.11-0.59) K/uL Eos # (Auto) 0.16 (0-0.5) K/uL Baso # (Auto) 0.03 (0-0.2) K/uL Comprehensive Metabolic Panel 04/16/20 Range/Units 12:21 Sodium 141 (136-145) mmol/L Potassium 3.8 (3.5-5.1) mmol/L Chloride 113 H (98-107) mmol/L Carbon Dioxide 23 (21-32) mmol/L BUN 33 H (7-18) mg/dl Creatinine 1.82 H (0.6-1.2) mg/dl Glucose 100 H (70-99) mg/dl Calcium 8.4 L (8.5-10.1) mg/dl AST 34 (15-37) U/L ALT 38 (12-78) U/L Alkaline Phosphatase 89 (45-117) U/L Total Protein 5.8 L (6.4-8.2) gm/dl Albumin 2.6 L (3.4-5.0) gm/dl Intake and Output 04/16/20 04/16/20 04/16/20 06:59 14:59 22:59 Intake Total 300 / 300 Balance 300 / 300 Intake: IV 300 / 300 Right Hand 300 / 300 Other: Weight 50.5 kg Patient Weight 04/17/20 06:59 Weight 50.5 kg Diagnostic Findings Her most recent outpatient echocardiogram had been on 10/17/2019: Moderate concentric left ventricular hypertrophy noted at that time, with normal LVEF, 60%, patient is status post transcatheter aortic valve replacement with a CoreValve prosthetic valve. Ovular prosthetic gradients were normal for this type prosthesis. No significant aortic valve regurgitation noted at that time. She has a dual-chamber Medtronic permanent pacemaker which was placed on 08/09/2017 for syncope, and intermittent high-grade AV block. Most recent transmission interrogation was on 02/08/2020 at which time the patient was atrial paced 29.9% the time, right ventricular paced 0% the time, generator longevity was stable at 8 years.
--- NOTE | 2020-04-16 19:16 | Ultrasound Report ---
BILATERAL LOWER EXTREMITY VENOUS DOPPLER HISTORY: Acute shortness of breath with elevated d-dimer elevated d-dimer, SOB COMPARISON STUDY: Duplex venous Doppler study 12/20/2015. FINDINGS: RIGHT: Patent common femoral vein. Echogenic occlusive thrombus involves the mid and distal portions of the superficial femoral vein appears similar from comparison study. There is an apparent collateral vein adjacent to the superficial femoral vein which is patent. The remaining deep venous structures of the right lower extremity appear normal and patent. LEFT: Normal flow, compressibility, phasicity and augmentation of the left lower extremity deep venous stru ctures. IMPRESSION: 1. No sonographic evidence of left-sided deep venous thrombosis. 2. 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 ACT 112: Negative or not required by law. Electronically signed by: Tayo Osorio M.D. 04/16/2020 7:15 PM
[2020-04-16] MEDS ORDERED: ACETAMINOPHEN 325 MG TAB PO PRN (20:45)
[2020-04-16] MEDS ORDERED: NITROGLYCERIN SL 0.4 MG/TAB TAB SL PRN (20:45)
[2020-04-16] MEDS ORDERED: TRAMADOL HCL 50 MG TABLET PO PRN (20:45)
[2020-04-16] MEDS ORDERED: FLUTICASONE PROPIONATE NA SPR 16 GM BTL NAE PRN (20:45)
[2020-04-16] MEDS ORDERED: NON-FORMULARY MEDICATION (Melatonin 20 MG) PO SCH (21:00)
[2020-04-16] MEDS ORDERED: POTASSIUM CHLORIDE 20 MEQ TABCR PO STA (21:29)
[2020-04-16] MEDS ORDERED: METOPROLOL SUCC 25MG EXT REL TAB PO STA (21:29)
[2020-04-16] MEDS ORDERED: SODIUM CHLORIDE 0.9% 250 ML IV ONE (21:32)
[2020-04-16] MEDS ORDERED: SODIUM CHLORIDE 0.9% 500 ML IV ONE (21:45)
[2020-04-16] MEDS ORDERED: ALBUMIN 25% 50 ML IV ONE (22:00)
[2020-04-16] MEDS: MELATONIN 3 MG TAB PO PRN (22:28)
[2020-04-16] MEDS: MIRTAZAPINE SOLTAB 15 MG PO SCH (22:29)
[2020-04-17] MEDS: LEVOTHYROXINE SODIUM 50 MCG TABLET PO SCH (06:04)
--- NOTE | 2020-04-17 06:27 | Electrocardiogram Report ---
Test Reason : Blood Pressure : / mmHG Vent. Rate : 107 BPM Atrial Rate : 107 BPM P-R Int : 180 ms QRS Dur : 136 ms QT Int : 372 ms P-R-T Axes : 049 -49 100 degrees QTc Int : 496 ms Sinus tachycardia Possible Left atrial enlargement Left axis deviation Left bundle branch block Abnormal ECG When compared with ECG of 11-JAN-2020 10:11, Sinus rhythm has replaced Electronic atrial pacemaker Confirmed by Caesar Carpenter ([id number]) on 04/17/2020 6:27:18 AM Referred By: Confirmed By:Caesar Carpenter
[2020-04-17 07:11] LABS: Hematocrit (blood only) 41.9 % (37-47); Hemoglobin 13.6 g/dL (12.0-16.0); Mean Corpuscular Hemoglobin 28.3 pg (25-34); Mean Corpuscular Hgb Conc 32.5 g/dL (32-36); Mean Corpuscular Volume 87.1 fL (80-100); Mean Platelet Volume 11.1 fL (7.4-10.4); Platelet Count 137 K/uL (130-400); RDW Coefficient of Variation 16.5 % (11.5-14.5); RDW Standard Deviation 52.4 fL (36.4-46.3); Red Blood Count 4.81 M/uL (4.2-5.4); White Blood Count 6.04 K/uL (4.8-10.8)
[2020-04-17 07:48] LABS: BUN Creatinine Ratio 14.8 (10-20); Calcium 8.3 mg/dl (8.5-10.1); Creatinine Clr Calc Pharmacy 18.1 ml/min; Est GFR (African American) 32.2; Est GFR (Non-African American) 27.8; Potassium 4.4 mmol/L (3.5-5.1)
[2020-04-17] MEDS: CETIRIZINE HCL 10 MG TABLET PO SCH (08:52)
[2020-04-17] MEDS: CHOLECALCIFEROL 1,000 UNITS 25 MCG TAB PO SCH (08:52)
[2020-04-17] MEDS: CITALOPRAM 20 MG TAB PO SCH (08:52)
[2020-04-17] MEDS: predniSONE 5 MG TAB PO SCH (08:52)
[2020-04-17] MEDS: LANSOPRAZOLE 15 MG SOLTAB PO SCH (08:52)
[2020-04-17] MEDS: ASPIRIN 81 MG ECTAB PO SCH (08:52)
[2020-04-17] MEDS: METOPROLOL SUCC 25MG EXT REL TAB PO SCH (08:52)
[2020-04-17] MEDS: POTASSIUM CHLORIDE 20 MEQ TABCR PO SCH ×2 (08:52→22:00)
[2020-04-17] MEDS: CLOPIDOGREL BISULFATE 75 MG TAB PO SCH (08:52)
[2020-04-17] MEDS: ROSUVASTATIN CALCIUM 5 MG TAB PO SCH (08:52)
[2020-04-17] MEDS: AMMONIUM LACTATE 12% LOTION 225 GM BTL EXT SCH (08:58)
[2020-04-17] MEDS ORDERED: LEVALBUTEROL HCL 1.25 MG/3 ML NEB NEB PRN (09:06)
[2020-04-17] MEDS: ACETYLCYSTEINE 10% INHAL SOLN 4 ML **DISPENSED BY RESP. INH SCH ×2 (10:40→19:22)
[2020-04-17] MEDS ORDERED: FUROSEMIDE 20 MG in SYRINGE 0 ML IV SCH (11:00)
[2020-04-17] MEDS: LEVALBUTEROL HCL 1.25 MG/3 ML NEB NEB SCH ×2 (13:19→19:27)
--- NOTE | 2020-04-17 13:33 | Cardiology Progress Note ---
Date of Service April 17, 2020 Assessment & Plan (1) Exertional dyspnea: (2) CKD (chronic kidney disease), stage IV: 85-year-old female presenting with worsening shortness of breath x3 weeks. Interval improvement in her symptoms with supplemental O2. Her chest CT revealed small b/l pleural effusions. she was not started on diuretic therapy due to CKD and receiving IV contrast dye on admission. . creatinine trending down this AM. Recommend one dose IV lasix 20 mg today. BMP in AM Likely would benefit from 2 step Echo reveals moderate LVH with grade II diastolic dysfunction, appropriate function of TAVR. She does not take diuretic therapy at home. Case discussed with Dr. Lassiter. Will follow Admission and Anticipated Discharge Date Admission Date: April 16, 2020 Supervising Physician Co-Signing Physician Notes Patient seen and examined. Eating dinner without complaint. Echocardiogram reviewed with normal LV systolic function with mild dyssynergy secondary to left bundle branch block. Aortic valve replacement functioning appropriately Blood cultures negative to date Chest x-ray without volume overload. Laboratory studies notable for marked hypoalbuminemia We will continue to follow patient Subjective patient resting in bed comfortably this morning. She reports her original complaint of shortness of breath has improved with oxygen therapy. She admits she has not been ambulating to notice a difference with exertional dyspnea. She denies chest pain. No orthopnea, PND, lower extremity edema. Mild cough noted. No sputum. No fever or chills. No sense of palpitations or tachy palpitations. Review of Systems Review of Systems: All systems reviewed & are unremarkable except as noted in HPI & below Physical Exam Constitutional: WD/WN, vitals as above + thin and + cachectic; no acute distress Respiratory: no respiratory distress and no labored breathing Auscultation: + diminished lung sounds; no crackles, no rales and no wheezes Gastrointestinal (Abdomen): normal bowel sounds, soft, nontender, no hepatosplenomegaly Neurologic: PERRL, EOMI, accommodation nl, no face palsy, no dysarthria Psychiatric: A+Ox3, euthymic affect Results & Data ([facility]) Vital Signs (Past 12 Hours) Vital Signs Temp Pulse Pulse Pulse Resp BP Pulse Ox 04/17/20 13:22 86 18 98 04/17/20 11:17 36.6 C 89 19 116/76 99 04/17/20 07:33 89 04/17/20 07:13 36.8 C 87 17 116/74 99 04/17/20 02:55 36.8 C 96 H 18 99/69 L 90 Laboratory Results 04/17/20 04/17/20 04/17/20 Range/Units 13:15 11:53 06:55 WBC (4.8-10.8) K/uL RBC (4.2-5.4) M/uL Hgb (12.0-16.0) g/dL Hct (37-47) % MCV (80-100) fL MCH (25-34) pg MCHC (32-36) g/dL RDW Std Deviation (36.4-46.3) fL RDW Coeff of Anatoly (11.5-14.5) % Plt Count (130-400) K/uL MPV (7.4-10.4) fL Sodium 142 (136-145) mmol/L Potassium 4.4 D (3.5-5.1) mmol/L Chloride 115 H (98-107) mmol/L Carbon Dioxide 22 (21-32) mmol/L Anion Gap 5.0 (3-11) BUN 25 H (7-18) mg/dl Creatinine 1.68 H (0.6-1.2) mg/dl Est Cr Clr Drug Dosing 18.1 ml/min Est GFR ( Amer) 32.2 Est GFR (Non-Af Amer) 27.8 BUN/Creatinine Ratio 14.8 (10-20) Glucose 80 (70-99) mg/dl Calcium 8.3 L (8.5-10.1) mg/dl Urine Color Pending Urine Appearance Pending Urine pH Pending Ur Specific [place] Pending Urine Protein Pending Urine Glucose (UA) Pending Urine Ketones Pending Urine Blood Pending Urine Nitrite Pending Urine Bilirubin Pending Urine Urobilinogen Pending Ur Leukocyte Esterase Pending Stl C. diff Tox B Gene Negative Cdiff Gene (Neg) COVID-19 Eval Order COVID-19 PCR (Negative) 04/17/20 04/16/20 04/16/20 Range/Units 06:55 18:10 18:10 WBC 6.04 (4.8-10.8) K/uL RBC 4.81 (4.2-5.4) M/uL Hgb 13.6 (12.0-16.0) g/dL Hct 41.9 (37-47) % MCV 87.1 (80-100) fL MCH 28.3 (25-34) pg MCHC 32.5 (32-36) g/dL RDW Std Deviation 52.4 H (36.4-46.3) fL RDW Coeff of Anatoly 16.5 H (11.5-14.5) % Plt Count 137 (130-400) K/uL MPV 11.1 H (7.4-10.4) fL Sodium (136-145) mmol/L Potassium (3.5-5.1) mmol/L Chloride (98-107) mmol/L Carbon Dioxide (21-32) mmol/L Anion Gap (3-11) BUN (7-18) mg/dl Creatinine (0.6-1.2) mg/dl Est Cr Clr Drug Dosing ml/min Est GFR ( Amer) Est GFR (Non-Af Amer) BUN/Creatinine Ratio (10-20) Glucose (70-99) mg/dl Calcium (8.5-10.1) mg/dl Urine Color Urine Appearance Urine pH Ur Specific [place] Urine Protein Urine Glucose (UA) Urine Ketones Urine Blood Urine Nitrite Urine Bilirubin Urine Urobilinogen Ur Leukocyte Esterase Stl C. diff Tox B Gene (Neg) COVID-19 Eval Order Covid19 Done at [facility] COVID-19 PCR NEGATIVE (Negative) Diagnostic Findings Telemetry reviewed: Normal sinus rhythm 80-110 beats per minute. No tachy or Martín arrhythmias. Echo reviewed: Preserved LV systolic function. Moderate concentric LVH. Grade 2 diastolic dysfunction. Septal wall motion abnormality consistent with conduction delay. appropriate function of bioprosthetic aortic valve close/TAVR Medications Administered Current Inpatient Medications Acetaminophen (Acetaminophen 325 Mg Tab) 650 mg PO Q4H PRN PRN Reason: Pain or Fever Stop: 05/16/20 20:44 Last Admin: 04/17/20 01:39 Dose: 650 mg Documented by: Acetylcysteine (Acetylcysteine 10% Inhal Soln 4 Ml Dispensed By Resp.) 3 ml INH BIDR BHAVYA Stop: 05/17/20 08:29 Last Admin: 04/17/20 10:40 Dose: Not Given Documented by: Aspirin (Aspirin 81 Mg Ectab) 81 mg PO DAILY [facility] Stop: 05/17/20 08:59 Last Admin: 04/17/20 08:52 Dose: 81 mg Documented by: Cetirizine HCl (Cetirizine Hcl 10 Mg Tablet) 10 mg PO DAILY BHAVYA Stop: 05/17/20 08:59 Last Admin: 04/17/20 08:52 Dose: 10 mg Documented by: Citalopram Hydrobromide (Citalopram 20 Mg Tab) 10 mg PO DAILY BHAVYA Stop: 05/17/20 08:59 Last Admin: 04/17/20 08:52 Dose: 10 mg Documented by: Clopidogrel Bisulfate (Clopidogrel Bisulfate 75 Mg Tab) 75 mg PO DAILY [facility] Stop: 05/17/20 08:59 Last Admin: 04/17/20 08:52 Dose: 75 mg Documented by: Fluticasone Propionate (Fluticasone Propionate Na Spr 16 Gm Btl) 2 sprays JIA DAILY PRN PRN Reason: Nasal Congestion Stop: 05/16/20 20:44 Lactic Acid (Ammonium Lactate 12% Lotion 225 Gm Btl) 1 gm EXT DAILY [facility] Stop: 05/17/20 08:59 Last Admin: 04/17/20 08:58 Dose: 1 gm Documented by: Lansoprazole (Lansoprazole 15 Mg Soltab) 15 mg PO QAM [facility] Stop: 05/17/20 08:59 Last Admin: 04/17/20 08:52 Dose: 15 mg Documented by: Levalbuterol HCl (Levalbuterol Hcl 1.25 Mg/3 Ml Neb) 1.25 mg NEB Q6R [facility] Stop: 05/17/20 12:59 Last Admin: 04/17/20 13:19 Dose: 1.25 mg Documented by: Levalbuterol HCl (Levalbuterol Hcl 1.25 Mg/3 Ml Neb) 1.25 mg NEB Q4H PRN PRN Reason: Shortness Of Breath Or Wheezing Stop: 05/17/20 09:14 Levothyroxine Sodium (Levothyroxine Sodium 50 Mcg Tablet) 50 mcg PO DAILYBB [facility] Stop: 05/17/20 06:29 Last Admin: 04/17/20 06:04 Dose: 50 mcg Documented by: Loperamide HCl (Loperamide Hcl 2 Mg Cap) 2 mg PO UD PRN PRN Reason: Diarrhea Stop: 05/17/20 13:39 Melatonin (Melatonin 3 Mg Tab) 3 mg PO HS PRN PRN Reason: Sleep Stop: 05/16/20 21:26 Last Admin: 04/16/20 22:28 Dose: 3 mg Documented by: Metoprolol Succinate (Metoprolol Succ 25mg Ext Rel Tab) 25 mg PO DAILY BHAVYA Stop: 05/17/20 08:59 Last Admin: 04/17/20 08:52 Dose: 25 mg Documented by: Mirtazapine (Mirtazapine Soltab 15 Mg) 45 mg PO HS BHAVYA Stop: 05/16/20 20:59 Last Admin: 04/16/20 22:29 Dose: 45 mg Documented by: Nitroglycerin (Nitroglycerin Sl 0.4 Mg/Tab Tab) 0.4 mg SL UD PRN PRN Reason: chest pain Stop: 05/16/20 20:44 Potassium Chloride (Potassium Chloride 20 Meq Tabcr) 20 meq PO BID BHAVYA Stop: 05/17/20 08:59 Last Admin: 04/17/20 08:52 Dose: 20 meq Documented by: Prednisone (Prednisone 5 Mg Tab) 5 mg PO DAILY BHAVYA Stop: 05/17/20 08:59 Last Admin: 04/17/20 08:52 Dose: 5 mg Documented by: Rosuvastatin Calcium (Rosuvastatin Calcium 5 Mg Tab) 5 mg PO DAILY BHAVYA Stop: 05/17/20 08:59 Last Admin: 04/17/20 08:52 Dose: 5 mg Documented by: Tramadol HCl (Tramadol Hcl 50 Mg Tablet) 50 mg PO Q8H PRN PRN Reason: Pain Stop: 05/16/20 20:44 Vitamin D (Cholecalciferol 1,000 Units 25 Mcg Tab) 1,000 units PO DAILY BHAVYA Stop: 05/17/20 08:59 Last Admin: 04/17/20 08:52 Dose: 1,000 units Documented by:
[2020-04-17] MEDS ORDERED: LOPERAMIDE HCL 2 MG CAP PO PRN (13:40)
[2020-04-17 13:49] LABS: Appearance Urine Clear (Clear); Bacteria Urine Automated Negative (Negative); Bilirubin Urine Negative (Negative); Blood Urine Negative (Negative); Color Urine Yellow; Glucose Urine UA Negative (Negative); Ketones Urine Negative (Negative); Leukocyte Esterase Urine Trace (Negative); Nitrite Urine Negative (Negative); Protein Urine Negative (Negative); RBC Urine Automated 0-4 /hpf (0-4); Urobilinogen Urine Negative (Negative)
--- NOTE | 2020-04-17 17:25 | Pulmonary Consultation ---
Date of Consultation April 17, 2020 Assessment & Plan (1) SOB (shortness of breath): CT chest 04/16/2020: Moderate-sized hiatal hernia, elevated right hemidiaphragm, cystic/emphysematous changes appreciated in the right lower lobe. Minimal mucus plugging right lower lobe. Moderate kyphosis and scoliosis. --Exertional shortness of breath In the case of this patient it is multifactorial Especially given that the patient has no smoking history and grade 2 diastolic CHF Pulmonary component could be presumptively from restrictive lung disease of her underlying moderate hiatal hernia on top of kyphoscoliosis that the patient has. She also has elevation of right hemidiaphragm. Theoretically hiatal hernia repair surgery would help with dyspnea to some extent but given she is 85 years old with multiple core morbidities, I do not think this would be a possibility. Continue with O2 supplementation to keep oxygen saturation greater than 90%. For mucous plugging, flutter valve with incentive spirometry along with Mucinex. --Abnormal CT chest Patient does have a cystic/emphysematous changes appreciated in the right lower lobe Given that she is a non-smoker I would hypothesized that this is most likely from chronic of the right lower lobe infection There is no reticular changes appreciated in the periphery I do not think there is an underlying interstitial lung disease Plan: Patient would definitely benefit from outpatient PFTs. Cardiopulmonary rehab would be beneficial for her Flutter valve and incentive spirometry Please note the above document was generated using voice recognition software. It may contain grammatical, syntax or spelling errors. (2) Exertional dyspnea: History of Present Illness Attending Physician: Mariano Mcduffie MD History of Present Illness 85-year-old female with multiple comorbidities including aortic repair along with Josue, diastolic CHF stage II, hypertension, history of PE status post IVC filter, CKD and coronary artery disease was brought to the hospital because of exertional shortness of breath going on since the last 3 weeks progressively getting worse. At the time of examination patient stated that it is usually exertional. Does not bother her when she is sitting. It is not associated with wheezing. No chest pain associated with it. Patient denies any cough. No hemoptysis. No runny nose, no urged to clear her throat. Patient denies any chest pain, no palpitation, no dizziness. No fever or chills. Patient denies any increase in swelling in the legs. Social history: Non-smoker, no illicit drug use, no alcohol use. No birds or poultry nearby. Patient does have dogs at home. Allergies Allergy/AdvReac Type Severity Reaction Status Date / Time Cipro Allergy Intermediate RASH Verified 04/19/18 05:27 ciprofloxacin Allergy Intermediate RASH Verified 04/07/20 11:40 metronidazole Allergy Intermediate RASH Verified 04/07/20 11:40 cefuroxime Allergy Unknown RASH Verified 04/07/20 11:40 nitrofurantoin Allergy Unknown UKN Verified 04/07/20 11:40 alendronate sodium AdvReac Intermediate Gastrointestinal Verified 04/07/20 11:40 [From Fosamax] Upset liothyronine AdvReac Mild RAPID Verified 04/07/20 11:40 HEART RATE Home Medications Home Medications Medication Instructions Recorded Confirmed Type aspirin 81 mg tablet,delayed 81 mg PO DAILY 05/01/18 04/16/20 History release cholecalciferol (vitamin D3) 25 1,000 units PO DAILY 05/01/18 04/16/20 History mcg (1,000 unit) capsule clopidogrel 75 mg tablet 75 mg PO DAILY 05/01/18 04/16/20 History fluoride (sodium) 1.1 % dental 1 appln DT DAILY gm 05/01/18 04/16/20 History cream lansoprazole 15 mg capsule,delayed 15 mg PO QAM cap 05/01/18 04/16/20 History release mirtazapine 45 mg tablet 45 mg PO HS tab 05/01/18 04/16/20 History nitroglycerin 0.4 mg sublingual 0.4 mg SL DIRECTED PRN 05/01/18 04/16/20 History tablet rosuvastatin 5 mg tablet 5 mg PO DAILY 05/01/18 04/16/20 History Lac-Hydrin Five 1 applic TOPICAL DAILY 11/28/18 04/16/20 History amoxicillin 2,000 mg PO DIRECTED PRN 11/28/18 04/16/20 History cranberry extract 200 mg PO DAILY 11/28/18 04/16/20 History melatonin 20 mg PO HS 11/28/18 04/16/20 History metoprolol succinate 25 mg PO DAILY 11/28/18 04/16/20 History prednisone 5 mg PO DAILY 11/28/18 04/16/20 History amlodipine [Norvasc] 2.5 mg PO DAILY 01/16/19 04/16/20 History cetirizine 10 mg PO DAILY 01/09/20 04/16/20 History fluticasone propionate [Flonase 2 spray INTRANASAL DAILY PRN 01/09/20 04/16/20 History Allergy Relief] levothyroxine 50 mcg PO DAILY 01/09/20 04/16/20 History tramadol 50 mg PO Q8H PRN 01/09/20 04/16/20 History citalopram 10 mg PO DAILY 04/16/20 04/16/20 History Patient History Medical History Aftercare following right hip joint replacement surgery Angina pectoris, unspecified Cardiac catheterization as the cause of abnormal reaction of the patient, or of later complication, without mention of misadventure at the time of the procedure Cataracts, bilateral DVT (deep venous thrombosis) Hx of skin cancer, basal cell Hx of squamous cell carcinoma Left bundle branch block Pacemaker Peripheral neuropathy PVD (peripheral vascular disease) Renal disease Sinus tachycardia Wears dentures Surgical History H/O aortic aneurysm repair H/O heart artery stent History of cataract removal with insertion of prosthetic lens Family History Other Heart disease Social History Smoking Status: Never smoker Hx Alcohol Use: Yes Alcohol type: wine Hx Substance Use: No Preferred Language: Occitan Communication Ability: Effective Intrusion Analyst Required: No Beliefs That Will Affect Care: None marital status: Current Living Situation: Spouse current occupation: retired How many Children do You have: 4 Other Information That Helps Us Care for You: No Feels Safe at Home: Yes Safety Concerns: Feels Safe At This Time Review of Systems Review of Systems: All systems reviewed & are unremarkable except as noted in HPI & below Physical Exam Physical Exam: Constitutional: No acute distress HEENT: EOMI, PERRLA, frail-appearing Respiratory system: Decreased air entry bilaterally, no wheeze, no rhonchi, no crackles CVS: S1-S2 positive, no murmurs or gallops, accentuated P2 Abdomen: Soft, nontender, nondistended, positive bowel sounds x4 Extremities: +2 pulses bilaterally radialis/ dorsalis pedis, no cyanosis, +1 edema bilateral lower extremity Neuro: Awake alert oriented x3 Psych: Normal mood and affect G/U: No [place] Skin: no rashes, warm and dry Lymphatic: no cervical or axillary lymphadenopathy Results & Data Results & Data ([facility]) Vital Signs (Past 12 Hours) Vital Signs Temp Pulse Pulse Resp BP Pulse Ox 04/17/20 15:43 36.7 C 85 18 113/79 95 04/17/20 13:22 86 18 98 04/17/20 11:17 36.6 C 89 19 116/76 99 04/17/20 07:33 89 04/17/20 07:13 36.8 C 87 17 116/74 99 04/17/20 06:55 04/17/20 06:55 PG Care Time/CCT Total # of Minutes Spent Total Time Spent with Patient: Total time spent is greater than 50% in coordination of care (as documented) at patient's floor/unit and/or counseling patient: Coding Level of Care Code 41753 Initial Inpt Care Lvl 3 Diagnoses SOB (shortness of breath) R06.02 Exertional dyspnea R06.00
--- NOTE | 2020-04-17 18:23 | Hospitalist Progress Note ---
Date of Service April 17, 2020 Assessment & Plan (1) Exertional dyspnea: 85 y/o female with history of CAD, CHF Diastolic Type, Mitral and Aortic Regurgitation, s/p TAVR, HTN, PE s/p IVC filter, history of retroperitoneal bleed, CKD 4, FM, presenting with progressive shortness of breath x 2 weeks. EXERTIONAL DYSPNEA, MULTIFACTORIAL DIASTOLIC CHF, ACUTE ON CHRONIC MILD EXACERBATION Echo noted Lasix 20mg IV ordered crea stable, monitor appreciate Cardiology Service recommendations ATELECTASIS, BRONCHIECTASIS, MUCUS PLUGGING KYPHOSCOLIOSIS, ELEVATED HEMIDIAPHRAGM continue nebs, mucomyst, Incentive spirometry will need PFTs as outpatient will need 2 step exercise test prior to discharge PT/OT evaluation appreciate Pulm SVC recommendations ELEVATED D DIMER CT chest: no PE has history of PE s/p IVC Filter Doppler of the LE: no DVT HISTORY OF CAD denies chest pain trop negative EKG no signs of acute ischemia continue usual ASA, Plavix, Metoprolol HISTORY OF MV, AV REGURGITATION, S/P TAVR management per #1 HYPERTENSION hold Amlodipine for marginal BP CKD 4 crea at baseline CHRONIC LEFT LOWER EXTREMITY WOUND follows at wound care center wound care consult placed DVT prophylaxis SCDs on the right leg- history of retroperitoneal bleed Code Status Full Code per patient Disposition lives at home with her will order PT/OT evaluation may need 2 step exercise test prior to discharge Admission and Anticipated Discharge Date Admission Date: April 16, 2020 Subjective ff up for exertional dyspnea, multifactorial seen resting in bed, on 2 L oxygen via nasal cannula states she is improved compared to yesterday no active dyspnea, chest pain, dizziness no fever/chills, cough, sputum denies any other symptoms Review of Systems Review of Systems: All systems reviewed & are unremarkable except as noted in HPI & below Physical Exam Physical Exam: General- oriented x 3, not in distress, speaks in sentences with no effort or accessory muscle use Eyes- anicteric Neck- no JVD Lungs- clear breath sounds bilaterally, no rales/wheezes Heart- normal rate, regular rhythm; no murmurs Abdomen- normal bowel sounds, nondistended, soft, nontender Extremities- no pretibial edema, no calf tenderness left lower leg: dressing in place, no bleeding or discharge Neuro- alert, oriented x 3; no gross focal neurologic deficits Skin- warm & dry Results & Data Results & Data ([place]) Vital Signs (Past 12 Hours) Vital Signs Temp Pulse Pulse Resp BP Pulse Ox 04/17/20 15:43 36.7 C 85 18 113/79 95 04/17/20 13:22 86 18 98 04/17/20 11:17 36.6 C 89 19 116/76 99 04/17/20 07:33 89 04/17/20 07:13 36.8 C 87 17 116/74 99 Laboratory Results Laboratory Results - last 24 hr 04/16/20 04/16/20 04/17/20 18:10 18:10 06:55 WBC 6.04 RBC 4.81 Hgb 13.6 Hct 41.9 MCV 87.1 MCH 28.3 MCHC 32.5 RDW Std Deviation 52.4 H RDW Coeff of Anatoly 16.5 H Plt Count 137 MPV 11.1 H Sodium Potassium Chloride Carbon Dioxide Anion Gap BUN Creatinine Est Cr Clr Drug Dosing Est GFR ( Amer) Est GFR (Non-Af Amer) BUN/Creatinine Ratio Glucose Calcium Urine Color Urine Appearance Urine pH Ur Specific [place] Urine Protein Urine Glucose (UA) Urine Ketones Urine Blood Urine Nitrite Urine Bilirubin Urine Urobilinogen Ur Leukocyte Esterase Urine WBC (Auto) Urine RBC (Auto) U Hyaline Cast (Auto) U Epithel Cells (Auto) Urine Bacteria (Auto) Stl C. diff Tox B Gene COVID-19 Eval Order Covid19 Done at [facility] COVID-19 PCR NEGATIVE 04/17/20 04/17/20 04/17/20 06:55 11:53 13:15 WBC RBC Hgb Hct MCV MCH MCHC RDW Std Deviation RDW Coeff of Anatoly Plt Count MPV Sodium 142 Potassium 4.4 D Chloride 115 H Carbon Dioxide 22 Anion Gap 5.0 BUN 25 H Creatinine 1.68 H Est Cr Clr Drug Dosing 18.1 Est GFR ( Amer) 32.2 Est GFR (Non-Af Amer) 27.8 BUN/Creatinine Ratio 14.8 Glucose 80 Calcium 8.3 L Urine Color Yellow Urine Appearance Clear Urine pH 6.0 Ur Specific [place] 1.010 Urine Protein Negative Urine Glucose (UA) Negative Urine Ketones Negative Urine Blood Negative Urine Nitrite Negative Urine Bilirubin Negative Urine Urobilinogen Negative Ur Leukocyte Esterase Trace H Urine WBC (Auto) 1-5 Urine RBC (Auto) 0-4 U Hyaline Cast (Auto) 1-5 U Epithel Cells (Auto) 5-10 H Urine Bacteria (Auto) Negative Stl C. diff Tox B Gene Negative Cdiff Gene COVID-19 Eval Order COVID-19 PCR
[2020-04-17] MEDS: MIRTAZAPINE SOLTAB 15 MG PO SCH (22:00)
[2020-04-17] MEDS: guaiFENesin 600 MG TABCR PO SCH (22:02)
[2020-04-17] MEDS: MELATONIN 3 MG TAB PO PRN (22:22)
[2020-04-17] MEDS ORDERED: LORazepam 0.5 MG TAB PO STA (22:33)
[2020-04-18] MEDS: LEVALBUTEROL HCL 1.25 MG/3 ML NEB NEB SCH ×3 (01:15→13:24)
[2020-04-18] MEDS: LEVOTHYROXINE SODIUM 50 MCG TABLET PO SCH (05:19)
--- NOTE | 2020-04-18 06:21 | Electrocardiogram Report ---
Test Reason : Blood Pressure : / mmHG Vent. Rate : 088 BPM Atrial Rate : 088 BPM P-R Int : 170 ms QRS Dur : 140 ms QT Int : 404 ms P-R-T Axes : 064 -64 109 degrees QTc Int : 488 ms Normal sinus rhythm Left axis deviation Left bundle branch block Abnormal ECG When compared with ECG of 16-APR-2020 11:57, No significant change Confirmed by Caesar Carpenter ([id number]) on 04/18/2020 6:21:04 AM Referred By: REFERRED SELF Confirmed By:Caesar Carpenter
[2020-04-18] MEDS: ACETYLCYSTEINE 10% INHAL SOLN 4 ML **DISPENSED BY RESP. INH SCH (07:04)
[2020-04-18 07:12] VITALS: BP 155/93; TEMP 98.1
[2020-04-18] MEDS: CLOPIDOGREL BISULFATE 75 MG TAB PO SCH (08:17)
[2020-04-18] MEDS: ASPIRIN 81 MG ECTAB PO SCH (08:18)
[2020-04-18] MEDS: CITALOPRAM 20 MG TAB PO SCH (08:18)
[2020-04-18] MEDS: predniSONE 5 MG TAB PO SCH (08:18)
[2020-04-18] MEDS: guaiFENesin 600 MG TABCR PO SCH (08:18)
[2020-04-18] MEDS: ROSUVASTATIN CALCIUM 5 MG TAB PO SCH (08:19)
[2020-04-18] MEDS: CHOLECALCIFEROL 1,000 UNITS 25 MCG TAB PO SCH (08:19)
[2020-04-18] MEDS: LANSOPRAZOLE 15 MG SOLTAB PO SCH (08:20)
[2020-04-18] MEDS: POTASSIUM CHLORIDE 20 MEQ TABCR PO SCH (08:20)
[2020-04-18] MEDS: METOPROLOL SUCC 25MG EXT REL TAB PO SCH (08:20)
[2020-04-18] MEDS: CETIRIZINE HCL 10 MG TABLET PO SCH (08:20)
[2020-04-18] MEDS: AMMONIUM LACTATE 12% LOTION 225 GM BTL EXT SCH (08:21)
[2020-04-18 08:48] LABS: BUN Creatinine Ratio 13.8 (10-20); Calcium 9.3 mg/dl (8.5-10.1); Creatinine Clr Calc Pharmacy 16.5 ml/min; Est GFR (African American) 27.4; Est GFR (Non-African American) 23.7; Magnesium 2.4 mg/dl (1.8-2.4); Potassium 4.2 mmol/L (3.5-5.1)
[2020-04-18] MEDS ORDERED: AMLODIPINE BESYLATE 5 MG TAB PO SCH (10:00)
--- NOTE | 2020-04-18 11:36 | Cardiology Progress Note ---
Date of Service April 18, 2020 Assessment & Plan (1) Exertional dyspnea: 85-year-old female presenting with worsening shortness of breath x3 weeks. Interval improvement in her symptoms with supplemental O2 and one dose IV diuretic. Does not examine as volume overload. Significant hypoalbuminemia noted. Resume low dose amlodipine. Add low dose HCTZ 12.5 mg - 1 time per week. Echo reveals moderate LVH with grade II diastolic dysfunction, appropriate function of TAVR. Case discussed with Dr. Lassiter. Acceptable for discharge today from cardiac standpoint. Will arrange 2 week f/u with [facility] with Dr. Pinto or [facility] (2) CKD (chronic kidney disease), stage IV: (3) S/P TAVR (transcatheter aortic valve replacement): (4) H/O aortic aneurysm repair: (5) Hypoalbuminemia: Admission and Anticipated Discharge Date Admission Date: April 16, 2020 Supervising Physician Co-Signing Physician Notes Patient seen and examined, assessment as well outlined above. No significant volume overload even on initial admitting chest x-ray though marked hypoalbuminemia contributing to small pleural effusions. We will treat hypertension as noted above and continue low-dose diuretic to manage volume status Strongly urged improve nutrition and protein intake Outpatient follow-up arranged Subjective Patient resting out of bed comfortably. Visiting with . SOB improved. No longer requiring supplemental O2. No chest pain. BP remains elevated. No orthopnea, PND or edema. No dizziness or lightheadedness. No palpitations. Review of Systems Review of Systems: All systems reviewed & are unremarkable except as noted in HPI & below Physical Exam Constitutional: WD/WN, vitals as above + thin and + cachectic; no acute distress Respiratory: no respiratory distress and no labored breathing Auscultation: + diminished lung sounds; no crackles, no rales and no wheezes Gastrointestinal (Abdomen): normal bowel sounds, soft, nontender, no hepatosplenomegaly Neurologic: PERRL, EOMI, accommodation nl, no face palsy, no dysarthria Psychiatric: A+Ox3, euthymic affect Results & Data ([facility]) Vital Signs (Past 12 Hours) Vital Signs Temp Pulse Resp BP Pulse Ox 04/18/20 07:12 36.7 C 88 20 155/93 H 96 04/18/20 07:05 79 18 94 04/18/20 03:41 36.3 C L 75 17 152/75 H 97 04/18/20 00:01 36.6 C 80 15 131/63 97
[2020-04-18 13:21] VITALS: O2SAT 96
[2020-04-18 14:11] VITALS: PULSE 77
--- NOTE | 2020-04-18 17:26 | Pulmonology Progress Note ---
Date of Service April 18, 2020 Assessment & Plan (1) SOB (shortness of breath): CT chest 04/16/2020: Moderate-sized hiatal hernia, elevated right hemidiaphragm, cystic/emphysematous changes appreciated in the right lower lobe. Minimal mucus plugging right lower lobe. Moderate kyphosis and scoliosis. --Exertional shortness of breath In the case of this patient it is multifactorial Especially given that the patient has no smoking history and grade 2 diastolic CHF Pulmonary component could be presumptively from restrictive lung disease of her underlying moderate hiatal hernia on top of kyphoscoliosis that the patient has. She also has elevation of right hemidiaphragm. Theoretically hiatal hernia repair surgery would help with dyspnea to some extent but given she is 85 years old with multiple core morbidities, I do not think this would be a possibility. Continue with O2 supplementation to keep oxygen saturation greater than 90%. For mucous plugging, flutter valve with incentive spirometry along with Mucinex. --Abnormal CT chest Patient does have a cystic/emphysematous changes appreciated in the right lower lobe Given that she is a non-smoker I would hypothesize that this is most likely from chronic of the right lower lobe infection There is no reticular changes appreciated in the periphery I do not think there is an underlying interstitial lung disease Plan: Monitor the patient on room air, if there is saturation goes down 88% patient will need home O2. Recommend outpatient PFTs and pulmonary follow-up. Recommend cardiopulmonary rehab once discharged Continue with flutter valve and incentive spirometry and Mucinex No further recommendations from pulmonary perspective. Will sign off, recall if needed Please note the above document was generated using voice recognition software. It may contain grammatical, syntax or spelling errors. (2) Exertional dyspnea: Admission and Anticipated Discharge Date Admission Date: April 16, 2020 Subjective Patient seen and examined at bedside. No acute distress, no adverse events overnight. Shortness of breath is improved. Denies any chest pain, no headache, no cough, no nausea or vomiting Good appetite. was present at bedside at the time of examination. Review of Systems Review of Systems: All systems reviewed & are unremarkable except as noted in Subjective Physical Exam Physical Exam: Constitutional: No acute distress HEENT: EOMI, PERRLA, frail-appearing Respiratory system: Decreased air entry bilaterally, no wheeze, no rhonchi, no crackles CVS: S1-S2 positive, no murmurs or gallops, accentuated P2 Abdomen: Soft, nontender, nondistended, positive bowel sounds x4 Extremities: +2 pulses bilaterally radialis/ dorsalis pedis, no cyanosis, +1 edema bilateral lower extremity Neuro: Awake alert oriented x3 Psych: Normal mood and affect G/U: No [place] Skin: no rashes, warm and dry Lymphatic: no cervical or axillary lymphadenopathy Results & Data Results & Data ([facility]) Vital Signs (Past 12 Hours) Vital Signs Temp Pulse Pulse Pulse Pulse Pulse Pulse 04/18/20 13:25 61 04/18/20 13:20 36.7 C 96 H 88 04/18/20 11:42 77 75 69 04/18/20 08:00 77 04/18/20 07:12 36.7 C 88 04/18/20 07:05 79 Resp Resp Resp BP Pulse Ox Pulse Ox Pulse Ox 04/18/20 13:25 14 96 04/18/20 13:20 20 155/93 H 96 04/18/20 11:42 20 18 90 92 04/18/20 08:00 04/18/20 07:12 20 155/93 H 96 04/18/20 07:05 18 94 Pulse Ox 04/18/20 13:25 04/18/20 13:20 04/18/20 11:42 94 04/18/20 08:00 04/18/20 07:12 04/18/20 07:05 04/17/20 06:55 04/18/20 08:13 PG Care Time/CCT Total # of Minutes Spent Total Time Spent with Patient: Total time spent is greater than 50% in coordination of care (as documented) at patient's floor/unit and/or counseling patient: Coding Level of Care Code 90324 Subseq Hosp Care Lvl 3 Diagnoses SOB (shortness of breath) R06.02 Exertional dyspnea R06.00
--- NOTE | 2020-04-18 18:32 | Hospitalist Progress Note ---
Date of Service April 18, 2020 Assessment & Plan (1) Exertional dyspnea: 85 y/o female with history of CAD, CHF Diastolic Type, Mitral and Aortic Regurgitation, s/p TAVR, HTN, PE s/p IVC filter, history of retroperitoneal bleed, CKD 4, FM, presenting with progressive shortness of breath x 2 weeks. EXERTIONAL DYSPNEA, MULTIFACTORIAL DIASTOLIC CHF, possible ACUTE ON CHRONIC MILD EXACERBATION Echo: No regional wall motion abnormalities noted, ejection fraction 55 to 60%, diastolic dysfunction grade 2, bioprosthetic aortic valve, status post TAVR, aortic valve prosthesis velocities are within normal limits Lasix 20mg IV ordered crea stable Dyspnea improved Evaluated by cardiology service Recommend HCTZ 12 5 mg once a week, follow-up with rug measurer as scheduled Monitor as an outpatient ATELECTASIS, BRONCHIECTASIS, MUCUS PLUGGING KYPHOSCOLIOSIS, ELEVATED HEMIDIAPHRAGM Patient was given nebs, mucomyst, Incentive spirometry Pulmonary service consulted-[facility] group pulmonology service, Dr. Mckenzie Recommend PFTs as outpatient 2 step exercise test prior to discharge: Patient maintained O2 saturation more than 90% with exercise, does not need supplemental oxygen Encouraged to use incentive spirometry and flutter valve at home ELEVATED D DIMER has history of PE s/p IVC Filter D-dimer 7,500 CT chest: no acute PE Doppler of the LE: no DVT Given elevated d-dimer with negative work-up for acute PE or DVT, may consider work-up for malignancy as an outpatient HISTORY OF CAD denies chest pain trop negative EKG no signs of acute ischemia continue usual ASA, Plavix, Metoprolol HISTORY OF MV, AV REGURGITATION, S/P TAVR management per #1 HYPERTENSION Continue amlodipine CKD 4 crea at baseline CHRONIC LEFT LOWER EXTREMITY WOUND follows at wound care center Stable, healing well Disposition lives at home with her PT and OT evaluation recommend patient to return home Follow-up with PCP next week to April 22, 2020 Follow-up with rug measurer as scheduled Outpatient PFTs Admission and Anticipated Discharge Date Admission Date: April 16, 2020 Subjective Follow-up for exertional dyspnea, multifactorial Seen resting in bedside chair, comfortable, not in distress, off nasal cannula, in good spirits She feels much better overall No active shortness of breath today Denies chest pain, palpitations, dizziness, fevers, cough, chills No other symptoms States that she is ready and would like to be discharged today Review of Systems Review of Systems: All systems reviewed & are unremarkable except as noted in HPI & below Physical Exam Physical Exam: General- oriented x 3, not in distress, speaks in sentences with no effort or accessory muscle use Eyes- anicteric Neck- no JVD Lungs- clear breath sounds bilaterally, no crackles or wheezing bilaterally Heart- normal rate, regular rhythm; no murmurs Abdomen- normal bowel sounds, nondistended, soft, nontender Extremities- no pretibial edema, no calf tenderness Neuro- alert, oriented x 3; no gross focal neurologic deficits Skin- warm & dry Results & Data Results & Data ([facility]) Vital Signs (Past 12 Hours) Vital Signs Temp Pulse Pulse Pulse Pulse Pulse Pulse 04/18/20 13:25 61 04/18/20 13:20 36.7 C 96 H 88 04/18/20 11:42 77 75 69 04/18/20 08:00 77 04/18/20 07:12 36.7 C 88 04/18/20 07:05 79 Resp Resp Resp BP Pulse Ox Pulse Ox Pulse Ox 04/18/20 13:25 14 96 04/18/20 13:20 20 155/93 H 96 04/18/20 11:42 20 18 90 92 04/18/20 08:00 04/18/20 07:12 20 155/93 H 96 04/18/20 07:05 18 94 Pulse Ox 04/18/20 13:25 04/18/20 13:20 04/18/20 11:42 94 04/18/20 08:00 04/18/20 07:12 04/18/20 07:05 Laboratory Results Laboratory Results - last 24 hr 04/18/20 08:13 Sodium 141 Potassium 4.2 Chloride 113 H Carbon Dioxide 23 Anion Gap 5.0 BUN 26 H Creatinine 1.92 H Est Cr Clr Drug Dosing 16.5 Est GFR ( Amer) 27.4 Est GFR (Non-Af Amer) 23.7 BUN/Creatinine Ratio 13.8 Glucose 83 Calcium 9.3 Magnesium 2.4
--- NOTE | 2020-04-18 18:40 | Discharge Summary ---
Date of Service April 18, 2020 Admission HPI Per Admitting Provider 85 y/o female with history of CAD, CHF Diastolic Type, Mitral and Aortic Regurgitation, s/p TAVR, HTN, PE s/p IVC filter, history of retroperitoneal bleed, CKD 4, FM, presenting with progressive shortness of breath x 2 weeks. Patient reports 2 week history of dyspnea with minimal exertion. She denies having cough, sputum production, fever/chills. She also denies chest pain, palpitations, dizziness, syncope/pre-syncope. Apparently, patient was hypotensive en route and received IV fluids. EKG sinus tachycardia Troponin negative CT Angio chest: IMPRESSION: 1. No evidence of pulmonary thromboembolic disease. 2. Cardiomegaly with aortic valvular endograft. Fusiform dilation of the ascending thoracic aorta measuring 5.2 x 5.4 cm has increased in size from the comparison 2016 study. No dissection. 3. Mild pleural parenchymal scarring of the lung bases with right lung base cystic change and mild traction bronchiectasis with mucous plugging. 4. Small left and trace right pleural effusions. 5. Left lung base opacities suggest probable atelectasis. 6. Moderate sized hiatal hernia. On exam, patient seen resting in bed, comfortable, not in distress. States she easily got short of breath moving to the toilet. While at rest, she denies having active shortness of breath, chest pain, palpitations, dizziness. No other symptoms. Admission Exam Per Admitting Provider General- oriented x 3, not in distress, speaks in sentences with no effort or accessory muscle use Head- atraumatic Eyes- PERRL, EOMI, anicteric ENT- oropharynx clear Neck- supple, no JVD, no adenopathy, no thyromegaly; carotids +2/2, no bruits appreciated Lungs- diminished but clear to auscultation bilaterally, no rales/wheezes Heart- normal rate, regular rhythm; no murmur, no gallop, no rub appreciated Abdomen- normal bowel sounds, nondistended, soft, nontender, no masses or hepatosplenomegaly Extremities- no pretibial edema, no calf tenderness; peripheral pulses intact left leg: dressing in place- no discharge, bleeding Neuro- alert, oriented x 3; CN 2-12 grossly intact; motor 5/5 bilaterally;sensation 100% on all extremities; no other gross focal neurologic deficits Skin- warm & dry Principal Diagnosis Exertional Dyspnea, Multifactorial, Possible Component of Mild Acute on Chronic Congestive Heart Failure Exacerbation Discharge Exam General- oriented x 3, not in distress, speaks in sentences with no effort or accessory muscle use Eyes- anicteric Neck- no JVD Lungs- clear breath sounds bilaterally, no rales/wheezes Heart- normal rate, regular rhythm; no murmurs Abdomen- normal bowel sounds, nondistended, soft, nontender Extremities- no pretibial edema, no calf tenderness left lower leg: dressing in place, no bleeding or discharge Neuro- alert, oriented x 3; no gross focal neurologic deficits Skin- warm & dry Discharge Data Allergies Allergy/AdvReac Type Severity Reaction Status Date / Time Cipro Allergy Intermediate RASH Verified 04/19/18 05:27 ciprofloxacin Allergy Intermediate RASH Verified 04/07/20 11:40 metronidazole Allergy Intermediate RASH Verified 04/07/20 11:40 cefuroxime Allergy Unknown RASH Verified 04/07/20 11:40 nitrofurantoin Allergy Unknown UKN Verified 04/07/20 11:40 alendronate sodium AdvReac Intermediate Gastrointestinal Verified 04/07/20 11:40 [From Fosamax] Upset liothyronine AdvReac Mild RAPID Verified 04/07/20 11:40 HEART RATE Consultations 04/16/20 16:09 ED Decision to Admit Stat 04/16/20 20:45 Consult Cardiology Routine Consult Case Management - Discharge Planning Routine 04/17/20 08:00 Consult Pulmonology Routine Ordered Studies CT angio chest: CT DOSE: 300.81 mGy.cm HISTORY: 85 years-old Female with PE. Acute shortness of breath with fatigue TECHNIQUE: Multiple CTA images of the chest were obtained after the intravenous administration of 120 ml Optiray 320. Coronal and sagittal MIPS were obtained from the axial data set and were submitted for review. All measurements were obtained according to NASCET criteria. A dose lowering technique was utilized adhering to the principles of ALARA. COMPARISON: Chest radiograph of same day, chest CT 12/05/2015 FINDINGS: CTA: Mild cardiomegaly with left subclavian pacer. Trace pericardial effusion. Extensive coronary artery calcifications. Aortic valvular endograft. Fusiform dilation of the ascending thoracic aorta, 5.2 x 5.4 cm (previously 4.3 x 4.3 cm). No dissection or evidence of aneurysm rupture. There is no mediastinal hematoma. Extensive calcified plaque of the thoracic aortic arch. Descending thoracic aortic tortuosity. Dilation of the distal descending thoracic aorta measures up to 2.9 cm, image 71 series 4. This previously measured approximately 2.5 cm on comparison. There is suboptimal opacification of the descending thoracic aorta secondary to contrast bolus timing. Celiac trunk stent. The pulmonary arterial tree is opacified to the level of the segmental branches and demonstrates no filling defects to suggest thromboembolic disease. CT CHEST: There are a few subcentimeter thyroid nodules present. No adenopathy. Small left and trace right pleural effusions. No pneumothorax or overt pulmonary edema. Mild traction bronchiectasis of the lung bases with areas of linear pleural parenchymal scarring. Pulmonary cystic changes of the right lung base. Areas of mucous plugging are noted within the right lung base. There is mild subsegmental bibasilar atelectasis. There is no airspace consolidation typical for pneumonia. There is mild diffuse esophageal wall thickening. Moderate sized hiatal hernia. Cortical thinning of the left greater than right kidneys. No acute process of the imaged upper abdomen. Soft tissues are unremarkable. Degenerative changes of the shoulders and spine. No acute fracture identified. IMPRESSION: 1. No evidence of pulmonary thromboembolic disease. 2. Cardiomegaly with aortic valvular endograft. Fusiform dilation of the ascending thoracic aorta measuring 5.2 x 5.4 cm has increased in size from the comparison 2016 study. No dissection. 3. Mild pleural parenchymal scarring of the lung bases with right lung base cystic change and mild traction bronchiectasis with mucous plugging. 4. Small left and trace right pleural effusions. 5. Left lung base opacities suggest probable atelectasis. 6. Moderate sized hiatal hernia. 04/16/20 17:52 US venous doppler LE BI Stat 1. No sonographic evidence of left-sided deep venous thrombosis. 2. 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 Hospital Course (1) Exertional dyspnea: 85 y/o female with history of CAD, CHF Diastolic Type, Mitral and Aortic Regurgitation, s/p TAVR, HTN, PE s/p IVC filter, history of retroperitoneal bleed, CKD 4, FM, presenting with progressive shortness of breath x 2 weeks. EXERTIONAL DYSPNEA, MULTIFACTORIAL DIASTOLIC CHF, possible ACUTE ON CHRONIC MILD EXACERBATION Echo: No regional wall motion abnormalities noted, ejection fraction 55 to 60%, diastolic dysfunction grade 2, bioprosthetic aortic valve, status post TAVR, aortic valve prosthesis velocities are within normal limits Lasix 20mg IV ordered crea stable Dyspnea improved Evaluated by cardiology service Recommend HCTZ 12 5 mg once a week, follow-up with naval surface fire support planner as scheduled Monitor as an outpatient ATELECTASIS, BRONCHIECTASIS, MUCUS PLUGGING KYPHOSCOLIOSIS, ELEVATED HEMIDIAPHRAGM Patient was given nebs, mucomyst, Incentive spirometry Pulmonary service consulted-[facility] group pulmonology service, Dr. Mckenzie Recommend PFTs as outpatient 2 step exercise test prior to discharge: Patient maintained O2 saturation more than 90% with exercise, does not need supplemental oxygen Encouraged to use incentive spirometry and flutter valve at home ELEVATED D DIMER has history of PE s/p IVC Filter D-dimer 7,500 CT chest: no acute PE Doppler of the LE: no DVT Given elevated d-dimer with negative work-up for acute PE or DVT, may consider work-up for malignancy as an outpatient HISTORY OF CAD denies chest pain trop negative EKG no signs of acute ischemia continue usual ASA, Plavix, Metoprolol HISTORY OF MV, AV REGURGITATION, S/P TAVR management per #1 HYPERTENSION Continue amlodipine CKD 4 crea at baseline CHRONIC LEFT LOWER EXTREMITY WOUND follows at wound care center Stable, healing well Disposition lives at home with her PT and OT evaluation recommend patient to return home Follow-up with PCP next week to April 22, 2020 Follow-up with naval surface fire support planner as scheduled Outpatient PFTs Total Time Total Time Spent Total Time Spent (In Minutes): 50 minutes Discharge Plan Discharge Items Patient Disposition: Home - Self-Care Reason For Visit: SOB Discharge Diagnosis: SHORTNESS OF BREATH, IN THE SETTING OF DIASTOLIC CONGESTIVE HEART FAILURE Condition on Discharge: Good Activity: Resume your previous activity Activity Comment: GRADUALLY TOLERATED, NO HEAVY EXERTION Lifting: Wait until after follow-up appointment Exercise/Sports: Wait until after follow-up appointment Driving/Machine Use: NO DRIVING UNTIL RE-EVALUATED AND ALLOWED BY PRIMARY CARE PHYSICIAN Non-emergency contact: Primary Care Provider Call non-emergency contact if: you have any medication questions, your symptoms worsen and you have a fever Follow-up/Referrals: Jesus Olivares DO [Api Product Manager] - Jia Fernandez MD [Primary Care Provider] - 04/22/20 2:00 pm (04/22/2020 2:00 PM Provider Jia Fernandez MD Department General Internal Medicine [facility] ) Diet: Heart Healthy Addtl Attending Provider Instructions: YOUR NEW MEDICATIONS ARE: HYDROCHLOROTHIAZIDE (HCTZ)- a diuretic to prevent water retention. MUCINEX- to help dissolve mucus in the lung airways PLEASE CALL PRIMARY CARE PHYSICIAN OR RETURN TO THE ER IMMEDIATELY IF WITH RECURRENCE OF WORSENING OF SYMPTOMS, FEVER/CHILLS, COUGH, SPUTUM PRODUCTION. CONTINUE TO USE INCENTIVE SPIROMETER AND FLUTTER VALVE AT HOME. FOLLOW UP WITH DR. FERNANDEZ NEXT WEEK NOTED ABOVE. FOLLOW UP WITH DR. OLIVARES SCHEDULED. Pending Studies at Discharge: Yes Studies:: PULMONARY FUNCTION TEST OUTPATIENT C/O PRIMARY CARE PHYSICIAN Stand-Alone Forms: My [facility] [employer], Smoking Cessation Medications and DC Order Prescriptions: New hydrochlorothiazide 25 mg Tablet 12.5 mg PO Mo Qty: 20 RF: 2 guaifenesin [Mucinex] 600 mg Tablet Extended Release 12hr 600 mg PO Q12 Qty: 14 RF: 0 Continued aspirin [Aspir-81] 81 mg tablet,delayed release (DR/EC) 81 mg PO DAILY RF: 0 cholecalciferol (vitamin D3) 1,000 unit capsule 1,000 units PO DAILY RF: 0 clopidogrel [Plavix] 75 mg tablet 75 mg PO DAILY RF: 0 lansoprazole [Prevacid] 15 mg capsule,delayed release(DR/EC) 15 mg PO QAM RF: 0 mirtazapine 45 mg tablet 45 mg PO HS RF: 0 nitroglycerin [Nitrostat] 0.4 mg tablet, sublingual 0.4 mg SL DIRECTED PRN (Reason: chest pain) RF: 0 rosuvastatin [Crestor] 5 mg tablet 5 mg PO DAILY RF: 0 fluoride (sodium) 1.1 % cream 1 appln DT DAILY RF: 0 amlodipine [Norvasc] 5 mg tablet 2.5 mg PO DAILY RF: 0 amoxicillin 500 mg Capsule 2,000 mg PO DIRECTED PRN (Reason: PRIOR TO DENTAL APPOINTMENTS) RF: 0 prednisone 5 mg Tablet 5 mg PO DAILY RF: 0 metoprolol succinate 25 mg Tablet Extended Release 24 Hr 25 mg PO DAILY RF: 0 cranberry extract 200 mg Capsule 200 mg PO DAILY RF: 0 melatonin 10 mg Tablet 20 mg PO HS RF: 0 Lac-Hydrin Five 5 % Lotion 1 applic TOPICAL DAILY RF: 0 tramadol 50 mg tablet 50 mg PO Q8H PRN (Reason: Pain) RF: 0 cetirizine 10 mg Tablet 10 mg PO DAILY RF: 0 fluticasone propionate [Flonase Allergy Relief] 50 mcg/actuation [place],Suspension 2 spray INTRANASAL DAILY PRN (Reason: Nasal Congestion) RF: 0 levothyroxine 50 mcg tablet 50 mcg PO DAILY RF: 0 citalopram 10 mg tablet 10 mg PO DAILY RF: 0 Discharge Orders: Discharge Order (Routine); Ordered 04/18/20 Ordered By: Mariano Mcduffie Admission Data Admit Date/Time: 04/16/20 17:08 Attending Provider: Mariano Mcduffie Admit Provider: Mariano Mcduffie Primary Care Provider: iJa Fernandez Other Providers: Mariano Mcduffie ; Edna Mckenzie ; Jesus Olivares Other Interventions: Discharge Summary Assessment (RN) Last Done: 04/18/20 13:20
[2020-04-21] MEDS ORDERED: hydroCHLOROthiazide 25 MG TAB PO SCH (09:00)
== END 2020-04-18 14:21 | disposition home or self-care (01) ==
LOC: ED 11:52 → 2W 11:52